=== PATIENT | male | born 1950 | race Caucasian/White ===

== ENCOUNTER 2017-08-13 15:14 | Emergency (ER) | payer MEDICARE, OTHER ==
[~2017-08-13] VITALS: Ht 182.9 cm; Wt 100.0 kg
[2017-08-13 15:18] VITALS: BP 134/68; PULSE 91; RESP 14; TEMP 98.1; O2SAT 97
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
[2017-08-19] MEDS ORDERED: ASPI81TA23 PO (14:42)
== END 2017-08-13 16:30 | disposition home or self-care (01) ==
LOC: NEPE 15:14
DX: H26.9 Unspecified cataract (principal); I10 Essential (primary) hypertension; F17.200 Nicotine dependence, unspecified, uncomplicated; Z59.0 Homelessness
CPT/HCPCS: 99281

== ENCOUNTER 2017-09-17 15:11 | Emergency (ER) | payer MEDICARE, OTHER ==
[~2017-09-17] VITALS: Ht 182.9 cm; Wt 100.0 kg
[~2017-09-17 15:11] MED LIST: ASPI81TA23 PO; BRIN1SUS2 LEFT EYE; BRIN1SUS2 RIGHT EYE
[2017-09-17 15:16] VITALS: BP 218/120; PULSE 80; RESP 18; TEMP 98.4; O2SAT 96
[2017-09-17 15:38] VITALS: BP 185/104; PULSE 84; RESP 24; O2SAT 96
[2017-09-17] MEDS ORDERED: SODIUM CHLORIDE 0.9% FLUSH 10 ML FLUSH IV FLUSH PRN (15:45)
--- NOTE | 2017-09-17 16:01 | PD ---
HPI Chief Complaint: Altered Mental Status Time Seen by Provider: 15:23 Travel History International Travel<30 days: No Contact w/Intl Traveler<30days: No Traveled to known affect area: No History of Present Illness HPI Patient is a 66-year-old male presents emergency Department with his friend for evaluation of generalized weakness for the past 2 months and blindness for the past 6 months. He has been homeless and recently started going to the [employer] and apparently met this friend who is with him today, she states that he was scheduled to have a cataract removed by Dr. Berg and recommended admission to a rehabilitation facility. They went to the rehabilitation facility today and were counseled on the almanza of admission and that he did not qualify because she's not had 3 nights of inpatient stay. There apparently were referred to the emergency department for admission for 3 nights so that he can be discharged to a rehabilitation facility or [facility]. The patient himself has no complaints at this time, states been blind for 6 months, has no complaints of chest pain abdominal pain nausea vomiting diarrhea constipation. He is somewhat eccentric and behavior but is alert and awake and oriented. PFSH Past Medical History Asthma: No Blood Disorders: No Heart Rhythm Problems: No Cancer: No Cardiovascular Problems: No High Cholesterol: No Chest Pain: No Congestive Heart Failure: No COPD: No Diabetes: No Diminished Hearing: No Endocrine: No Genitourinary: No Hypertension: Yes Immune Disorder: No Musculoskeletal: No Neurologic: No Psychiatric: No Reproductive: No Respiratory: No Immunizations Current: Yes Sleep Apnea: No Thyroid Disease: No Past Surgical History Tonsillectomy: Yes Social History Alcohol Use: Yes (daily) Tobacco Use: Yes (1ppd) Substance Use: No Allergies-Medications (Allergen,Severity, Reaction): Coded Allergies: No Known Allergies (Verified Allergy, Unknown, 09/16/17) Reported Meds & Prescriptions Reported Meds & Active Scripts Active Reported Simbrinza Opth Drops (Brinzolamide-Brimonidine Opth Drops) 1-0.2% Susp 1 Drop RIGHT EYE DAILY Simbrinza Opth Drops (Brinzolamide-Brimonidine Opth Drops) 1-0.2% Susp 1 Drop LEFT EYE BID Aspirin EC (Aspirin) 81 Mg Tabdr 81 Mg PO DAILY Review of Systems Except as stated in HPI: all other systems reviewed are Neg Physical Exam Narrative GENERAL: Well-developed well-nourished no obvious distress, disheveled SKIN: Focused skin assessment warm/dry. HEAD: Atraumatic. Normocephalic. EYES: Pupils equal and round. No scleral icterus. No injection or drainage. ENT: No nasal bleeding or discharge. Mucous membranes pink and moist. NECK: Trachea midline. No JVD. CARDIOVASCULAR: Regular rate and rhythm. No murmur appreciated. RESPIRATORY: No accessory muscle use. Clear to auscultation. Breath sounds equal bilaterally. GASTROINTESTINAL: Abdomen soft, non-tender, nondistended. Hepatic and splenic margins not palpable. MUSCULOSKELETAL: No obvious deformities. No clubbing. No cyanosis. No edema. NEUROLOGICAL: Awake and alert. Patient nearly blind but does have the ability to identify lites. Otherwise cranial nerves V, VII through XII are grossly intact and nonfocal, 5 out of 5 strength in all 4 extremities. PSYCHIATRIC: Appropriate mood and affect; insight and judgment normal. Data Data Last Documented VS Vital Signs Date Time Temp Pulse Resp B/P (MAP) Pulse Ox O2 Delivery O2 Flow Rate FiO2 09/17/17 19:06 09/17/17 16:21 98 Room Air 09/17/17 15:38 84 24 09/17/17 15:16 98.4 Orders Orders Electrocardiogram (09/17/17 15:40) Complete Blood Count With Diff (09/17/17 15:40) Comprehensive Metabolic Panel (09/17/17 15:40) Urinalysis - C+S If Indicated (09/17/17 15:40) Chest, Single Ap (09/17/17 15:40) Ct Brain W/O Iv Contrast(Rout) (09/17/17 15:40) Blood Glucose (09/17/17 15:40) Ecg Monitoring (09/17/17 15:40) Iv Access Insert/Monitor (09/17/17 15:40) Oximetry (09/17/17 15:40) Sodium Chloride 0.9% Flush (Ns Flush) (09/17/17 15:45) Alcohol (Ethanol) (09/17/17 15:40) Ed Discharge Order (09/17/17 18:33) Drug Screen, Random Urine (09/17/17 18:33) Labs Laboratory Tests Test 09/17/17 15:50 09/17/17 17:05 White Blood Count 7.0 TH/MM3 Red Blood Count 4.06 MIL/MM3 Hemoglobin 13.3 GM/DL Hematocrit 39.1 % Mean Corpuscular Volume 96.3 FL Mean Corpuscular Hemoglobin 32.6 PG Mean Corpuscular Hemoglobin Concent 33.9 % Red Cell Distribution Width 14.1 % Platelet Count 220 TH/MM3 Mean Platelet Volume 7.6 FL Neutrophils (%) (Auto) 70.4 % Lymphocytes (%) (Auto) 17.2 % Monocytes (%) (Auto) 10.0 % Eosinophils (%) (Auto) 1.5 % Basophils (%) (Auto) 0.9 % Neutrophils # (Auto) 4.9 TH/MM3 Lymphocytes # (Auto) 1.2 TH/MM3 Monocytes # (Auto) 0.7 TH/MM3 Eosinophils # (Auto) 0.1 TH/MM3 Basophils # (Auto) 0.1 TH/MM3 CBC Comment DIFF FINAL Differential Comment Total Protein 7.3 GM/DL Alkaline Phosphatase 96 U/L Total Bilirubin 0.3 MG/DL Anion Gap 7 MEQ/L Estimat Glomerular Filtration Rate 117 ML/MIN Ethyl Alcohol Level LESS THAN 3 MG/DL Urine Color YELLOW Urine Turbidity CLEAR Urine pH 7.0 Urine Specific Mcmillan 1.021 Urine Protein TRACE mg/dL Urine Glucose (UA) NEG mg/dL Urine Ketones NEG mg/dL Urine Occult Blood NEG Urine Nitrite NEG Urine Bilirubin NEG Urine Urobilinogen 2.0 MG/DL Urine Leukocyte Esterase TRACE Urine RBC 1 /hpf Urine WBC 1 /hpf Urine Mucus FEW /lpf Microscopic Urinalysis Comment CATH-CULT NOT IND Urine Opiates Screen NEG Urine Barbiturates Screen NEG Urine Amphetamines Screen NEG Urine Benzodiazepines Screen NEG Urine Cocaine Screen NEG Urine Cannabinoids Screen NEG [facility] Medical Decision Making Medical Screen Exam Complete: Yes Emergency Medical Condition: Yes Differential Diagnosis Poor social circumstance, cataracts, altered mental status per his friend. Narrative Course Patient had complete workup in the emergency department including a CT head basic labs which do not show any significant abnormality. Case management spent some time with the patient regarding his presentation, showcase trimmer said to me that the patient actually thought his friend was crazy. She certainly does have some psychotic features to her presentation. She is not greatly disabled and is no indication to keep her against her will. Unfortunately there is no indication to admit this patient for further workup or treatment. He will be discharged to the street to care for himself. Discussed to keep his appointments as scheduled. He is stable for discharge. Diagnosis Primary Impression: Generalized weakness Additional Impression: Cataract Referrals: [facility] Disposition: 01 DISCHARGE HOME Condition: Stable Primo Stratton MD Sep 17, 2017 16:01
[2017-09-17 16:07] LABS: AUTOMATED NEUTROPHIL # 4.9 TH/MM3 (1.8-7.7); BASOPHIL # 0.1 TH/MM3 (0-0.2); BASOPHIL % 0.9 % (0.0-2.0); EOSINOPHIL # 0.1 TH/MM3 (0-0.4); EOSINOPHIL % 1.5 % (0.0-4.0); HEMATOCRIT 39.1 % (39.0-51.0); HEMOGLOBIN 13.3 GM/DL (13.0-17.0); LYMPH % 17.2 % (9.0-44.0); LYMPHOCYTE # 1.2 TH/MM3 (1.0-4.8); MEAN CELL VOLUME 96.3 FL (80.0-100.0); MEAN CORPUSCULAR HEMOGLOBIN 32.6 PG (27.0-34.0); MEAN CORPUSCULAR HGB CONC 33.9 % (32.0-36.0); MEAN PLATELET VOLUME 7.6 FL (7.0-11.0); MONOCYTE # 0.7 TH/MM3 (0-0.9); NEUT % 70.4 % (16.0-70.0); PLATELET COUNT 220 TH/MM3 (150-450); RED BLOOD COUNT 4.06 MIL/MM3 (4.50-5.90); RED CELL DISTRIBUTION WIDTH 14.1 % (11.6-17.2)
--- NOTE | 2017-09-17 16:15 | RADRPT ---
EXAM DATE/TIME: 09/17/2017 15:59 [facility] COMPARISON: CHEST PA & LAT, March 11, 2017, 14:21. INDICATIONS : Syncope, loss of eyesight. MEDICAL HISTORY : Hypertension. SURGICAL HISTORY : None. ENCOUNTER: Initial ACUITY: 1 year PAIN SCORE: 0/10 LOCATION: Bilateral chest FINDINGS: A single view of the chest demonstrates the lungs to be symmetrically aerated without evidence of mas s, infiltrate or effusion. The cardiomediastinal contours are unremarkable. Osseous structures are intact but hypertropic spurring of the lower thoracic spine primarily right sided.. CONCLUSION: No acute disease. No significant change has occurred. Yvon Gomes MD on September 17, 2017 at 16:12 Board Certified Radiologist. This report was verified electronically.
[2017-09-17 16:21] VITALS: O2SAT 98
--- NOTE | 2017-09-17 16:28 | RADRPT ---
EXAM DATE/TIME: 09/17/2017 16:09 [facility] COMPARISON: CT BRAIN W/O CONTRAST, March 11, 2017, 16:41. INDICATIONS : Altered mental state with confusion. RADIATION DOSE: 44.56 CTDIvol (mGy) MEDICAL HISTORY : Hypertension. SURGICAL HISTORY : None. ENCOUNTER: Initial ACUITY: 2 months PAIN SCALE: 8/10 LOCATION: Bilateral cranial TECHNIQUE: Multiple contiguous axial images were obtained of the head. Using automated exposure control and adj ustment of the mA and/or kV according to patient size, radiation dose was kept as low as reasonably a chievable to obtain optimal diagnostic quality images. DICOM format image data is available electro nically for review and comparison. FINDINGS: CEREBRUM: The ventricles are normal for age. No evidence of midline shift, mass lesion, hemorrhage or acute in farction. No extra-axial fluid collections are seen. Stable microvascular ischemic demyelinization o f deep white matter and minimally cortical. POSTERIOR FOSSA: The cerebellum and brainstem are intact. The 4th ventricle is midline. The cerebellopontine angle i s unremarkable. EXTRACRANIAL: The visualized portion of the orbits is intact. New minimal mucoperiosteal thickening in the maxillar y sinuses. SKULL: The calvaria is intact. No evidence of skull fracture. CONCLUSION: Intracranially negative for acute abnormality unchanged with mild microvascular ischemic demyelinizat ion. There is new minimal mucoperiosteal thickening in the maxillary sinuses. Yvon Gomes MD on September 17, 2017 at 16:23 Board Certified Radiologist. This report was verified electronically.
[2017-09-17 16:30] LABS: ALBUMIN 3.4 GM/DL (3.4-5.0); ALT (GPT) 11 U/L (12-78); AST (GOT) 14 U/L (15-37); BICARBONATE 25.7 MEQ/L (21.0-32.0); BLOOD UREA NITROGEN 14 MG/DL (7-18); CALCIUM 8.2 MG/DL (8.5-10.1); CHLORIDE 99 MEQ/L (98-107); CREATININE 0.68 MG/DL (0.60-1.30); GLOMERULAR FILTRATION RATE 117 ML/MIN (>89); GLUCOSE,RANDOM 109 MG/DL (74-106); SODIUM (NA) 132 MEQ/L (136-145)
[2017-09-17 16:33] LABS: ALKALINE PHOSPHATASE 96 U/L (45-117); TOTAL BILIRUBIN ADULT 0.3 MG/DL (0.2-1.0); TOTAL PROTEIN 7.3 GM/DL (6.4-8.2)
[2017-09-17 17:31] LABS: BILIRUBIN, URINE NEG (NEG); BLOOD, URINE NEG (NEG); GLUCOSE,URINE NEG (NEG); KETONE, URINE NEG (NEG); MUCUS URINE FEW /lpf (OCC); NITRITE,URINE NEG (NEG); URINE COLOR YELLOW (YELLW/STRAW); URINE LEUKOCYTE ESTERASE TRACE (NEG)
--- NOTE | 2017-09-18 13:03 | EKG ---
Date Performed: 09/17/2017 Time Performed: 16:36:21 PTAGE: 66 years EKG: Sinus rhythm NORMAL ECG PREVIOUS TRACING : 03/11/2017 12.30 Compared to previous tracing, sinus rate has slowed. DOCTOR: Yunier Castorena Interpretating Date/Time 09/18/2017 13:30:28
== END 2017-09-17 19:07 | disposition home or self-care (01) ==
LOC: NEPE 15:11
DX: R53.1 Weakness (principal); H26.9 Unspecified cataract; I10 Essential (primary) hypertension; F17.210 Nicotine dependence, cigarettes, uncomplicated; Z59.0 Homelessness; Z79.82 Long term (current) use of aspirin; Z79.899 Other long term (current) drug therapy
CPT/HCPCS: 70450; 71045; 80053; 80307; 81001; 85025; 93005; 99285

== ENCOUNTER 2017-11-10 09:27 | Emergency (ER) | payer MEDICARE, BC ==
[~2017-11-10 09:27] MED LIST changes: -CHLORHEXIDINE GLUCONATE 2 % 1 PACK (2 CLOTHS) TOPICAL PRN; -CYCLOPENTOLATE HCL 1% OPHT SOLN 2 ML BTL RIGHT EYE SCH; -EPINEPHrine HCL PF/SF (1:1000) 1 MG/ML AMP I-OCULAR ONE; -EPINEPHrine-Lidocaine/BSS (PF/SF) 4-120 mg/16 mL OPTH SYR RIGHT EYE ONE; -LACTATED RINGER'S 1000 ML IV PRN; -MANNITOL 12.5 GM/50 ML VIAL IV PRN; -METOPROLOL TARTRATE 25 MG TAB PO PRN; -PHENYLEPHRINE HCL 10% OPTH SOLN 5 ML BTL RIGHT EYE SCH; -POVIDONE IODINE 5% (ANTISEPSIS KIT) 4 APPLICATIONS EACH NARE PRN; -SODIUM CHLOR 0.9% 250 ML INJ 250 ML ONE; -SODIUM CHLORID 0.9% 500 ML IV PRN; -TETRACAINE 0.5% OPTH SOLN 4 ML BTL RIGHT EYE SCH; -TOBRAMYCIN/DEXAMETHASONE OPTH OINT 3.5 GM TUBE ONE; -TROPICAMIDE 1% OPHT SOLN 15 ML BTL RIGHT EYE SCH; -VISCOAT OPHT IRRIG SOLN 0.75 ML SYRINGE ONE
[2017-11-10 09:36] VITALS: BP 188/97; PULSE 92; RESP 16; TEMP 98.2; O2SAT 99
--- NOTE | 2017-11-10 09:47 | PD ---
HPI Chief Complaint: Foot and ankle swelling Time Seen by Provider: 09:29 Travel History International Travel<30 days: No Contact w/Intl Traveler<30days: No Traveled to known affect area: No History of Present Illness HPI This patient Was scheduled for cataract surgery on the right eye this morning. However, his surgery was canceled because he was not remaining n.p.o. as instructed. Also operating room staff noticed that his left ankle was swollen. He has some pain in that area. He is walking on it. He reports that he slipped and twisted it 3 days ago. He developed bruising in the foot and 2 of the toes. Patient according to his report drinks alcohol heavily and recently has been homeless but now is sharing a room with 2 other men. He reports that he does have a primary physician. Symptom severity is moderate. No alleviating factors. No exacerbating factors PFSH Past Medical History Asthma: No Blood Disorders: No Heart Rhythm Problems: No Cancer: No Cardiovascular Problems: No High Cholesterol: No Chest Pain: No Congestive Heart Failure: No COPD: No Diabetes: No Diminished Hearing: No Endocrine: No Genitourinary: No Hepatitis: No Hiatal Hernia: No Hypertension: Yes Immune Disorder: No Musculoskeletal: No Neurologic: No Psychiatric: No Reproductive: No Respiratory: No Immunizations Current: Yes Sleep Apnea: No Thyroid Disease: No Past Surgical History Tonsillectomy: Yes Social History Alcohol Use: Yes (daily) Tobacco Use: Yes (1ppd) Substance Use: No Allergies-Medications (Allergen,Severity, Reaction): Coded Allergies: No Known Allergies (Verified Allergy, Unknown, 11/10/17) Reported Meds & Prescriptions Reported Meds & Active Scripts Active Reported Simbrinza Opth Drops (Brinzolamide-Brimonidine Opth Drops) 1-0.2% Susp 1 Drop RIGHT EYE DAILY Simbrinza Opth Drops (Brinzolamide-Brimonidine Opth Drops) 1-0.2% Susp 1 Drop LEFT EYE BID Aspirin EC (Aspirin) 81 Mg Tabdr 81 Mg PO DAILY Review of Systems General / Constitutional: No: Fever Eyes: No: Visual changes HENT: No: Headaches Cardiovascular: No: Chest Pain or Discomfort Respiratory: No: Shortness of Breath Gastrointestinal: No: Abdominal Pain Genitourinary: No: Dysuria Musculoskeletal: Positive: Arthralgias, Edema, Pain Skin: No Rash Neurologic: No: Weakness Psychiatric: Positive: Substance Abuse, No: Depression Endocrine: No: Polydipsia Hematologic/Lymphatic: No: Easy Bruising Physical Exam Narrative GENERAL: Well-nourished, well-developed patient with left ankle swelling and pain . SKIN: Focused skin assessment reveals no rash and nodules. Skin is Warm and dry. HEAD: Atraumatic. Normocephalic. EYES: Pupils equal and round. No scleral icterus. No injection or drainage. ENT: No nasal bleeding or discharge. Mucous membranes pink and moist. NECK: Trachea midline. No JVD. CARDIOVASCULAR: Regular rate and rhythm. No murmur appreciated. RESPIRATORY: No accessory muscle use. Clear to auscultation. Breath sounds equal bilaterally. GASTROINTESTINAL: Abdomen soft, non-tender, nondistended. Hepatic and splenic margins not palpable. MUSCULOSKELETAL: He has swelling to the ankle with tenderness at the lateral malleolus. There is some forefoot tenderness as well. He is bruising of toes 3 and 4 on the left foot but no tenderness of those toes. No clubbing. No cyanosis. No redness swelling or pain in the area of the calf and thigh. Pedal pulses are palpable NEUROLOGICAL: Awake and alert. No obvious cranial nerve deficits. Motor grossly within normal limits. Normal speech. PSYCHIATRIC: Appropriate mood and affect; insight and judgment seems reduced . Data Data Last Documented VS Vital Signs Date Time Temp Pulse Resp B/P (MAP) Pulse Ox O2 Delivery O2 Flow Rate FiO2 11/10/17 09:36 98.2 92 16 188/97 (127) 99 Orders Orders Iv Access Insert/Monitor (11/10/17 09:40) Complete Blood Count With Diff (11/10/17 09:40) Basic Metabolic Panel (Bmp) (11/10/17 09:40) Foot, Complete ([id number]) (11/10/17 ) Alcohol (Ethanol) (11/10/17 09:40) Ankle, Complete ([id number]) (11/10/17 ) Splint Or Brace Apply/Monitor (11/10/17 10:52) Labs Laboratory Tests Test 11/10/17 09:55 White Blood Count 5.2 TH/MM3 Red Blood Count 4.33 MIL/MM3 Hemoglobin 13.8 GM/DL Hematocrit 40.8 % Mean Corpuscular Volume 94.3 FL Mean Corpuscular Hemoglobin 31.9 PG Mean Corpuscular Hemoglobin Concent 33.8 % Red Cell Distribution Width 14.5 % Platelet Count 222 TH/MM3 Mean Platelet Volume 7.6 FL Neutrophils (%) (Auto) 66.9 % Lymphocytes (%) (Auto) 18.0 % Monocytes (%) (Auto) 10.2 % Eosinophils (%) (Auto) 1.0 % Basophils (%) (Auto) 3.9 % Neutrophils # (Auto) 3.5 TH/MM3 Lymphocytes # (Auto) 0.9 TH/MM3 Monocytes # (Auto) 0.5 TH/MM3 Eosinophils # (Auto) 0.1 TH/MM3 Basophils # (Auto) 0.2 TH/MM3 CBC Comment DIFF FINAL Differential Comment Blood Urea Nitrogen 10 MG/DL Creatinine 0.61 MG/DL Random Glucose 96 MG/DL Calcium Level 8.2 MG/DL Sodium Level 136 MEQ/L Potassium Level 4.5 MEQ/L Chloride Level 100 MEQ/L Carbon Dioxide Level 29.9 MEQ/L Anion Gap 6 MEQ/L Estimat Glomerular Filtration Rate 133 ML/MIN Ethyl Alcohol Level LESS THAN 3 MG/DL MDM Medical Decision Making Medical Screen Exam Complete: Yes Emergency Medical Condition: Yes Medical Record Reviewed: Yes Differential Diagnosis Ankle fracture, foot fracture, ankle sprain, alcohol intoxication Narrative Course I have reviewed the patient's electronic medical record. Reviewed his last visit here. The last ER physician described him as eccentric His behavior is odd IV placed I am ordering some lab studies and alcohol level I have ordered x-rays of his foot and ankle CBC and metabolic profiles are normal, alcohol negative X-rays of his foot and ankle are reviewed. He has a fracture of the lateral malleolus with mild displacement Is a 3-day-old fracture. Is neurovascularly intact. I placed a Vidal splint recommended orthopedic follow-up He has both walker and wheelchair available Should avoid weightbearing and elevate the leg. I do not feel he could safely use crutches given his poor vision. Also, he has had a bandage on the right second toe for a month after he got it cut. The cut is healed and there is a macerated look to it given the length of the bandage which has gotten wet. However there is no sign of infection. I think it will gradually heal over time. Diagnosis Primary Impression: Closed left ankle fracture Qualified Codes: S82.892A - Other fracture of left lower leg, initial encounter for closed fracture Additional Impression: Alcohol abuse Additional Instructions: Wear splint Elevate left leg No weightbearing on left leg Use walker or wheelchair as needed Follow-up with orthopedist Limit alcohol use Med/Other Pt SpecificInfo: Other Disposition: 01 DISCHARGE HOME Condition: Stable Black Lr MD Nov 10, 2017 09:47
[2017-11-10 10:08] LABS: AUTOMATED NEUTROPHIL # 3.5 TH/MM3 (1.8-7.7); BASOPHIL # 0.2 TH/MM3 (0-0.2); BASOPHIL % 3.9 % (0.0-2.0); EOSINOPHIL # 0.1 TH/MM3 (0-0.4); HEMATOCRIT 40.8 % (39.0-51.0); HEMOGLOBIN 13.8 GM/DL (13.0-17.0); LYMPHOCYTE # 0.9 TH/MM3 (1.0-4.8); MEAN CELL VOLUME 94.3 FL (80.0-100.0); MEAN CORPUSCULAR HEMOGLOBIN 31.9 PG (27.0-34.0); MEAN CORPUSCULAR HGB CONC 33.8 % (32.0-36.0); MEAN PLATELET VOLUME 7.6 FL (7.0-11.0); MONO % 10.2 % (0.0-8.0); MONOCYTE # 0.5 TH/MM3 (0-0.9); NEUT % 66.9 % (16.0-70.0); PLATELET COUNT 222 TH/MM3 (150-450); RED BLOOD COUNT 4.33 MIL/MM3 (4.50-5.90); RED CELL DISTRIBUTION WIDTH 14.5 % (11.6-17.2); WHITE BLOOD COUNT 5.2 TH/MM3 (4.0-11.0)
[2017-11-10 10:18] LABS: CHLORIDE 100 MEQ/L (98-107); SODIUM (NA) 136 MEQ/L (136-145)
[2017-11-10 10:22] LABS: BICARBONATE 29.9 MEQ/L (21.0-32.0); CALCIUM 8.2 MG/DL (8.5-10.1); GLUCOSE,RANDOM 96 MG/DL (74-106)
[2017-11-10 10:23] LABS: BLOOD UREA NITROGEN 10 MG/DL (7-18)
[2017-11-10 10:26] LABS: CREATININE 0.61 MG/DL (0.60-1.30); GLOMERULAR FILTRATION RATE 133 ML/MIN (>89)
--- NOTE | 2017-11-10 10:45 | RADRPT ---
EXAM DATE/TIME: 11/10/2017 09:52 [facility] COMPARISON: No previous studies available for comparison. INDICATIONS : Tripped and fell last week, left lateral and dorsal foot pain. MEDICAL HISTORY : Hypertension. SURGICAL HISTORY : None. ENCOUNTER: Initial ACUITY: 1 week PAIN SCORE: 8/10 LOCATION: Left lateral and dorsal foot FINDINGS: No acute fracture within the foot. There is a fracture of the lateral malleolus which is mildly displ aced. Mild pes planus. Prominent bone spurs posterior calcaneus. CONCLUSION: 1. Lateral malleolus fracture. Pes planus. No acute fracture identified within the left foot. Ryland Mas MD on November 10, 2017 at 10:41 Board Certified Radiologist. This report was verified electronically.
--- NOTE | 2017-11-10 10:47 | RADRPT ---
EXAM DATE/TIME: 11/10/2017 09:52 [facility] COMPARISON: No previous studies available for comparison. INDICATIONS : Tripped and fell last week, left lateral ankle pain and swelling. MEDICAL HISTORY : Hypertension. SURGICAL HISTORY : None. ENCOUNTER: Initial ACUITY: 1 week PAIN SCORE: 8/10 LOCATION: Left lateral ankle FINDINGS: There is a mildly displaced fracture of the lateral malleolus with soft tissue swelling. No dislocati on. No other fractures are seen. CONCLUSION: 1. Mildly displaced lateral malleolar fracture. Ryland Mas MD on November 10, 2017 at 10:44 Board Certified Radiologist. This report was verified electronically.
== END 2017-11-10 11:36 | disposition home or self-care (01) ==
LOC: PHED 09:27
DX: S82.62XA Displaced fracture of lateral malleolus of left fibula, initial encounter for closed fracture (principal); F10.10 Alcohol abuse, uncomplicated; F17.200 Nicotine dependence, unspecified, uncomplicated; W01.0XXA Fall on same level from slipping, tripping and stumbling without subsequent striking against object, initial encounter; Y90.0 Blood alcohol level of less than 20 mg/100 ml; Z79.82 Long term (current) use of aspirin
CPT/HCPCS: 29515; 73610; 73630; 80048; 80307; 85025

== ENCOUNTER → 2017-11-10 | Day surgery (SDC) | payer MEDICARE, BC ==
[~2017-11-10] MED LIST changes: +CHLORHEXIDINE GLUCONATE 2 % 1 PACK (2 CLOTHS) TOPICAL PRN; +CYCLOPENTOLATE HCL 1% OPHT SOLN 2 ML BTL RIGHT EYE SCH; +EPINEPHrine HCL PF/SF (1:1000) 1 MG/ML AMP I-OCULAR ONE; +EPINEPHrine-Lidocaine/BSS (PF/SF) 4-120 mg/16 mL OPTH SYR RIGHT EYE ONE; +LACTATED RINGER'S 1000 ML IV PRN; +MANNITOL 12.5 GM/50 ML VIAL IV PRN; +METOPROLOL TARTRATE 25 MG TAB PO PRN; +PHENYLEPHRINE HCL 10% OPTH SOLN 5 ML BTL RIGHT EYE SCH; +POVIDONE IODINE 5% (ANTISEPSIS KIT) 4 APPLICATIONS EACH NARE PRN; +SODIUM CHLOR 0.9% 250 ML INJ 250 ML ONE; +SODIUM CHLORID 0.9% 500 ML IV PRN; +TETRACAINE 0.5% OPTH SOLN 4 ML BTL RIGHT EYE SCH; +TOBRAMYCIN/DEXAMETHASONE OPTH OINT 3.5 GM TUBE ONE; +TROPICAMIDE 1% OPHT SOLN 15 ML BTL RIGHT EYE SCH; +VISCOAT OPHT IRRIG SOLN 0.75 ML SYRINGE ONE
[2017-11-10 08:30] VITALS: BP 178/93; PULSE 93; RESP 20; TEMP 98.2; O2SAT 92
== END | disposition home or self-care (01) ==
LOC: PHSDC 08:05
PROVIDERS: ATTEND Ophthalmology
DX: H25.21 Age-related cataract, morgagnian type, right eye (principal); Z53.09 Procedure and treatment not carried out because of other contraindication; M79.89 Other specified soft tissue disorders
CPT/HCPCS: 82948; G0463; J2150; J7040; J7050; 99211; J0171

== ENCOUNTER 2018-02-12 21:05 | Emergency (ER) | payer MEDICARE, BC, OTHER ==
[~2018-02-12] VITALS: Ht 182.9 cm; Wt 94.0 kg
[2018-02-12 21:09] VITALS: BP 164/79; PULSE 89; RESP 20; TEMP 98.4; O2SAT 98
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
[2018-02-12] MEDS ORDERED: diphenhydrAMINE HCL 50 MG/ML VIAL IV PUSH ONE (21:30)
[2018-02-12] MEDS ORDERED: LORazepam 2 MG/ML VIAL IV PUSH ONE (21:30)
[2018-02-12] MEDS ORDERED: SODIUM CHLORIDE 0.9% FLUSH 10 ML FLUSH IV FLUSH PRN (21:30)
[2018-02-12] MEDS ORDERED: SODIUM CHLOR 0.9% 1000 ML INJ 1,000 ML IV ONE (21:30)
[2018-02-12] MEDS ORDERED: HALOPERIDOL LACTATE 5 MG/ML AMP IM ONE (21:30)
[2018-02-13 00:58] LABS: AUTOMATED NEUTROPHIL # 3.1 TH/MM3 (1.8-7.7); BASOPHIL % 0.7 % (0.0-2.0); EOSINOPHIL # 0.1 TH/MM3 (0-0.4); EOSINOPHIL % 1.1 % (0.0-4.0); HEMATOCRIT 37.4 % (39.0-51.0); HEMOGLOBIN 12.7 GM/DL (13.0-17.0); LYMPH % 31.4 % (9.0-44.0); LYMPHOCYTE # 1.7 TH/MM3 (1.0-4.8); MEAN CORPUSCULAR HEMOGLOBIN 31.9 PG (27.0-34.0); MEAN CORPUSCULAR HGB CONC 33.9 % (32.0-36.0); MEAN PLATELET VOLUME 8.6 FL (7.0-11.0); MONO % 8.8 % (0.0-8.0); MONOCYTE # 0.5 TH/MM3 (0-0.9); PLATELET COUNT 216 TH/MM3 (150-450); RED BLOOD COUNT 3.98 MIL/MM3 (4.50-5.90); RED CELL DISTRIBUTION WIDTH 13.3 % (11.6-17.2); WHITE BLOOD COUNT 5.3 TH/MM3 (4.0-11.0)
[2018-02-13 01:23] LABS: CREATININE 0.61 MG/DL (0.60-1.30)
--- NOTE | 2018-02-13 04:44 | RADRPT ---
EXAM DATE: 02/13/2018 4:06 AM EDT AGE/SEX: 67 years / Male INDICATIONS: Fall. Altered mental status. CLINICAL DATA: This is the patient's initial encounter. Patient reports that signs and symptoms have been present for 1 day and indicates a pain score of Nonresponsive. MEDICAL/SURGICAL HISTORY: . Alcohol abuse . RADIATION DOSE: 21.96 CTDI (mGy) COMPARISON: No prior exams available for comparison. TECHNIQUE: Contiguous images in the axial and coronal planes were obtained using helical multirow de tector technique. Using automated exposure control and adjustment of the mA and/or kV according to p atient size, radiation dose was kept as low as reasonably achievable to obtain optimal diagnostic [place] lity images. FINDINGS: Orbits: The orbital and infraorbital osseous structures are intact. The retroconal structures have a normal configuration. No radiopaque foreign bodies are seen. Nasal Bone: Bilateral nasal fractures. Zygomatic Arches: Symmetric without evidence of fracture. Sinuses: The maxillary, ethmoid, and frontal sinuses are intact. Mucoperiosteal thickening of the le ft maxillary sinus. Minimal mucosal thickening of the right maxillary sinus. Nasal Cavity: The nasal septum is intact and midline. The lacrimal ducts are intact. Soft Tissues: No radiopaque foreign bodies seen. No soft-tissue swelling is seen. Intracranial: No intracranial air seen. Cribriform Plate: Grossly intact. CONCLUSION: 1. Bilateral nasal fractures. 2. Scattered sinus disease. Electronically signed by: Ld Kirk MD 02/13/2018 4:43 AM EDT
--- NOTE | 2018-02-13 04:47 | RADRPT ---
EXAM DATE: 02/13/2018 3:59 AM EDT AGE/SEX: 67 years / Male INDICATIONS: Fall. Altered mental status. CLINICAL DATA: This is the patient's initial encounter. Patient reports that signs and symptoms have been present for 1 day and indicates a pain score of Nonresponsive. MEDICAL/SURGICAL HISTORY: Non-responsive. Alcohol abuse . RADIATION DOSE: 56.35 CTDI (mGy) COMPARISON: [facility] [place], CT BRAIN W/O CONTRAST, 09/17/2017. . TECHNIQUE: CT of the head without contrast. Using automated exposure control and adjustment of the mA and/or kV according to patient size, radiation dose was kept as low as reasonably achievable to ob tain optimal diagnostic quality images. FINDINGS: Cerebrum: There is low-density throughout the white matter. Old left basal ganglia lacunar infarct T he ventricles are normal for age. No evidence of midline shift, mass lesion, hemorrhage or acute inf arction. No extraaxial fluid collections are seen. Posterior Fossa: The cerebellum and brainstem are intact. The 4th ventricle is midline. The cerebe llopontine angle is unremarkable. Extracranial: The visualized portion of the orbits is intact. Skull: The calvaria is intact. No evidence of skull fracture. CONCLUSION: 1. Chronic ischemic small vessel vasculopathy. 2. Old left basal ganglia lacunar infarct Electronically signed by: Ld Kirk MD 02/13/2018 4:46 AM EDT
--- NOTE | 2018-02-13 04:47 | RADRPT ---
EXAM DATE: 02/13/2018 4:05 AM EDT AGE/SEX: 67 years / Male INDICATIONS: Fall. Altered mental status. CLINICAL DATA: This is the patient's initial encounter. Patient reports that signs and symptoms have been present for 1 day and indicates a pain score of Nonresponsive. MEDICAL/SURGICAL HISTORY: . Alcohol abuse . RADIATION DOSE: 20.29 CTDI (mGy) COMPARISON: No prior exams available for comparison. TECHNIQUE: Contiguous axial images were obtained using helical multirow detector technique. The vol umetric data was post-processed with multiplanar reconstruction in oblique axial, sagittal, and coron al planes. Using automated exposure control and adjustment of the mA and/or kV according to patient s ize, radiation dose was kept as low as reasonably achievable to obtain optimal diagnostic quality leslie ges. FINDINGS: Vertebrae: Normal vertebral body height. Alignment: Normal. No subluxation. C2-3: The bony spinal canal is normal in size. No evidence of disc bulge or herniation. The neural foramina are bilaterally patent. C3-4: The bony spinal canal is normal in size. No evidence of disc bulge or herniation. The neural foramina are bilaterally patent. C4-5: The bony spinal canal is normal in size. No evidence of disc bulge or herniation. The neural foramina are bilaterally patent. C5-6: Posterior disc osteophyte complex and bilateral neural foraminal narrowing. No canal stenosis. C6-7: The bony spinal canal is normal in size. No evidence of disc bulge or herniation. The neural foramina are bilaterally patent. C7-T1: The bony spinal canal is normal in size. No evidence of disc bulge or herniation. The neura l foramina are bilaterally patent. CONCLUSION: 1. No fracture or subluxation Electronically signed by: Ld Kirk MD 02/13/2018 4:45 AM EDT
[2018-02-13] MEDS ORDERED: PENI500T PO (05:03)
[2018-02-13] MEDS ORDERED: OCEA0.653 EACH NARE (05:03)
== END 2018-02-13 06:05 | disposition home or self-care (01) ==
LOC: NEPE 21:05
DX: S02.2XXA Fracture of nasal bones, initial encounter for closed fracture (principal); F10.129 Alcohol abuse with intoxication, unspecified; Y09 Assault by unspecified means; Y90.6 Blood alcohol level of 120-199 mg/100 ml; I10 Essential (primary) hypertension; F17.210 Nicotine dependence, cigarettes, uncomplicated; Z79.899 Other long term (current) drug therapy
CPT/HCPCS: 70450; 70486; 72125; 80048; 85025; 96361; 96372; 96374; 96375; 99284; J1200; J1630; J2060; J7030; 80307

== ENCOUNTER 2018-02-13 10:41 | Emergency (ER) | payer MEDICARE, BC, OTHER ==
[~2018-02-13] VITALS: Ht 180.3 cm; Wt 90.9 kg
[~2018-02-13 10:41] MED LIST changes: +OCEA0.653 EACH NARE; +PENI500T PO
[2018-02-13 10:53] VITALS: BP 130/76; PULSE 94; RESP 18; TEMP 98.5; O2SAT 96
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
[2018-02-13 15:16] LABS: AUTOMATED NEUTROPHIL # 6.4 TH/MM3 (1.8-7.7); BASOPHIL # 0.1 TH/MM3 (0-0.2); EOSINOPHIL % 0.5 % (0.0-4.0); HEMOGLOBIN 13.6 GM/DL (13.0-17.0); LYMPH % 14.7 % (9.0-44.0); LYMPHOCYTE # 1.3 TH/MM3 (1.0-4.8); MEAN CELL VOLUME 93.8 FL (80.0-100.0); MEAN CORPUSCULAR HEMOGLOBIN 31.8 PG (27.0-34.0); MEAN CORPUSCULAR HGB CONC 33.9 % (32.0-36.0); MEAN PLATELET VOLUME 8.5 FL (7.0-11.0); MONO % 12.1 % (0.0-8.0); MONOCYTE # 1.1 TH/MM3 (0-0.9); NEUT % 71.7 % (16.0-70.0); PLATELET COUNT 212 TH/MM3 (150-450); RED BLOOD COUNT 4.27 MIL/MM3 (4.50-5.90); RED CELL DISTRIBUTION WIDTH 13.5 % (11.6-17.2)
--- NOTE | 2018-02-13 15:22 | RADRPT ---
EXAM DATE: 02/13/2018 3:10 PM EDT AGE/SEX: 67 years / Male INDICATIONS: Altered mental status. CLINICAL DATA: This is the patient's initial encounter. Patient reports that signs and symptoms have been present for 1 day and indicates a pain score of Nonresponsive. MEDICAL/SURGICAL HISTORY: Non-responsive. Non-responsive. RADIATION DOSE: 44.13 CTDI (mGy) COMPARISON: [facility] [place], CT BRAIN W/O CONTRAST, 02/13/2018. C, CT BRAIN W/O CONTRAST, 09/17/2017. C, CT BRAIN W/O CONTRAST, 03/11/2017. . TECHNIQUE: CT of the head without contrast. Using automated exposure control and adjustment of the mA and/or kV according to patient size, radiation dose was kept as low as reasonably achievable to ob tain optimal diagnostic quality images. FINDINGS: Cerebrum: The ventricles are normal for age. Small lacunar infarct in the left basal ganglia is unc hanged from prior. Mild white matter hypoattenuation is stable. No evidence of midline shift, mass le dennis, hemorrhage or acute infarction. No extraaxial fluid collections are seen. Posterior Fossa: The cerebellum and brainstem are intact. The 4th ventricle is midline. The cerebe llopontine angle is unremarkable. Extracranial: The visualized portion of the orbits is intact. Skull: The calvaria is intact. No evidence of skull fracture. Asymmetric mucosal thickening in the left maxillary sinus. CONCLUSION: 1. No acute findings in the brain. 2. Left basal ganglia lacunar infarct and ischemic change in the supratentorial white matter, stable . 3. Left maxillary sinus disease. Electronically signed by: Matt Perales MD 02/13/2018 3:20 PM EDT
[2018-02-13 15:43] VITALS: BP 128/78; PULSE 87; RESP 18; O2SAT 99
[2018-02-13 15:43] LABS: ALBUMIN 3.8 GM/DL (3.4-5.0); ALKALINE PHOSPHATASE 96 U/L (45-117); ALT (GPT) 13 U/L (12-78); AST (GOT) 23 U/L (15-37); BICARBONATE 25.8 MEQ/L (21.0-32.0); BLOOD UREA NITROGEN 8 MG/DL (7-18); CALCIUM 8.8 MG/DL (8.5-10.1); CHLORIDE 101 MEQ/L (98-107); GLOMERULAR FILTRATION RATE 113 ML/MIN (>89); GLUCOSE,RANDOM 85 MG/DL (74-106); SODIUM (NA) 137 MEQ/L (136-145); TOTAL BILIRUBIN ADULT 0.8 MG/DL (0.2-1.0); TOTAL PROTEIN 7.8 GM/DL (6.4-8.2)
[2018-02-13 15:45] LABS: BILIRUBIN, URINE NEG (NEG); BLOOD, URINE SMALL (NEG); GLUCOSE,URINE NEG (NEG); HYALINE CAST, URINE 3 /lpf (RARE); KETONE, URINE NEG (NEG); MUCUS URINE FEW /lpf (OCC); NITRITE,URINE NEG (NEG); SQUAMOUS EPITHELIAL CELL URINE <1 /hpf (0-5); URINE COLOR YELLOW (YELLW/STRAW); URINE LEUKOCYTE ESTERASE NEG (NEG)
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
== END 2018-02-13 16:34 | disposition home or self-care (01) ==
LOC: NEPD 10:41
DX: H54.7 Unspecified visual loss (principal); Z59.0 Homelessness; Z72.0 Tobacco use; Z79.899 Other long term (current) drug therapy
CPT/HCPCS: 70450; 80053; 80307; 81001; 85025

== ENCOUNTER 2018-04-17 13:19 | Inpatient (IN) ==
[2018-04-17] MEDS ORDERED: Sod Chloride 0.9% Inj 1,000 ML IV.SIG ONE (13:33)
--- NOTE | 2018-04-17 13:40 | ED ---
HPI General Chief complaint: Medical Clearance Stated complaint: Psych Eval/Medical Time Seen by Provider: 04/17/18 13:23 Source: patient, RN notes reviewed, old records reviewed and police Mode of arrival: EMS History of Present Illness HPI narrative: 67-year-old male presents to the emergency department under Sher act by local police. Apparently, the patient is blind in homeless and gets around via a wheelchair. He has been almost willing out into traffic as he cannot see very well. The patient states he is 95% blind. He cannot see the shades to go into and has been sitting out in the sun for the past 5-6 hours in a local park. The patient states that he usually drinks alcohol daily. However, is not drinking the past few days because "I cannot get it". He does smoke tobacco. Denies illicit drug use. The patient has no medical complaints to me. He does have sunburn to his bilateral dorsal feet with old blistering noted. Patient is alert and oriented to person and place. He does not know the date or the year, but states it is because he does not keep up with it. Moderate severity. The patient denies any thoughts of hurting himself or anybody else. He is asking for food. Severity: moderate Associated symptoms: denies other symptoms Treatments prior to arrival: none Related Data Home Medications Medication Instructions Recorded Confirmed No Known Home Medications 04/17/18 04/17/18 Allergies Allergy/AdvReac Type Severity Reaction Status Date / Time No Known Allergies Allergy Unknown Uncoded 11/10/17 09:47 Review of Systems ROS: all other systems reviewed are negative PMFSH Medical History Medical History Blind in both eyes (Acute) Surgical History Surgical History No history of previous surgery (Acute) Social History Social History Substance History: No History of Abuse Smoking Status: Current every day smoker Tobacco Type: Cigarettes How Often Do You Have a Drink Containing Alcohol: 4 or more times a week Recent Travel in [facility] within the Last 8 Weeks: No Recent Out of Country Travel within the Last 8 Weeks: No Exam Narrative Exam Narrative: GENERAL: Well-nourished, well-developed male patient, afebrile SKIN: Focused skin assessment warm/dry. Sunburn noted to bilateral dorsal feet with crusting wound to feet HEAD: Normocephalic. Atraumatic EYES: No scleral icterus. No injection or drainage. NECK: Supple, trachea midline. No JVD or lymphadenopathy. CARDIOVASCULAR: Regular rate and rhythm without murmurs, gallops, or rubs. RESPIRATORY: Breath sounds equal bilaterally. No accessory muscle use. Patient coughing on exam GASTROINTESTINAL: Abdomen soft, non-tender, nondistended. MUSCULOSKELETAL: No cyanosis, or edema. BACK: No obvious deformity. PSYCHIATRIC: No delusional thought processes. No hallucinations. Course Initial Documented Vital Signs Temperature 99.1 F 04/17/18 13:33 Pulse Rate 87 04/17/18 13:33 Respiratory Rate 18 04/17/18 13:33 Blood Pressure 134/58 L 04/17/18 13:33 Pulse Oximetry 97 04/17/18 13:33 Last Documented Vital Signs Temperature 99.1 F 04/17/18 13:33 Pulse Rate 87 04/17/18 13:33 Respiratory Rate 18 04/17/18 13:33 Blood Pressure 157/67 H 04/17/18 13:38 Pulse Oximetry 97 04/17/18 13:33 Medical Decision Making MDM Narrative Medical decision making narrative: 67-year-old male presents to the emergency department via EMS under Sher act by local police. He is homeless and blind cannot take care of himself. Diabetes states that he has contacted [facility] who is on their way to see him. IV access established. CBC, CMP, TSH, alcohol level, urine drug screen, chest x-ray, CT the brain are ordered and pending. Patient is given NS 1 L IV bolus. CBC shows no acute abnormality. CMP shows hyponatremia 127, hypokalemia 3.3, hyperglycemia 132. TSH is 1.460. Alcohol level is less than 3. UDS is pending. Chest x-ray shows no acute abnormality. CT of the brain shows no acute findings in the brain. Patient is given second liter normal saline IV bolus for hyponatremia. He was given potassium 20 mEq p.o. The patient was seen by the psychiatric nurse practitioner and the Shre act was lifted as he has no mental illness and does not meet criteria for Sher act. I discussed the case with the pillowcase cutter who has been evaluating the patient. She recommends observation admission for placement as it will not happen today. The patient is unsafe discharge as he is blind, homeless, wheelchair-bound. Hospitalist is paged for admission. Residents accepted admission. Medical Screen Exam Complete: Yes Emergency Medical Condition: Yes Differential Diagnosis Differential Diagnosis: inability to care for self vs. dehydration vs. electrolyte abnormality Medical Records Medical records reviewed: Yes I reviewed the patient's medical records. patient was seen last twice in January 2018 Lab Data Result diagrams: 04/17/18 13:45 04/17/18 13:45 Lab Results 04/17/18 04/17/18 Range/Units 13:45 13:45 WBC 5.4 (4.0-11.0) th/mm3 RBC 3.91 L (4.50-5.90) mil/mm3 Hgb 12.4 L (13.0-17.0) gm/dL Hct 37.0 L (39.0-51.0) % MCV 94.7 (80.0-100.0) fL MCH 31.7 (27.0-34.0) pg MCHC 33.4 (32.0-36.0) % RDW 13.8 (11.6-17.2) % Plt Count 241 (150-450) th/mm3 MPV 7.7 (7.0-11.0) fL Neut % (Auto) 73.3 H (16.0-70.0) % Lymph % (Auto) 10.7 (9.0-44.0) % Iron % (Auto) 15.3 H (0.0-8.0) % Eos % (Auto) 0.3 (0.0-4.0) % Baso % (Auto) 0.4 (0.0-2.0) % Neut # (Auto) 4.0 (1.8-7.7) th/mm3 Lymph # (Auto) 0.6 L (1.0-4.8) th/mm3 Iron # (Auto) 0.8 (0.0-0.9) th/mm3 Eos # (Auto) 0.0 (0.0-0.4) th/mm3 Baso # (Auto) 0.0 (0.0-0.2) th/mm3 WBC Differential . Differential Comment Auto diff final Sodium 127 L (136-145) meq/L Potassium 3.3 L (3.5-5.1) meq/L Chloride 94 L (98-107) meq/L Carbon Dioxide 26.5 (21.0-32.0) meq/L Anion Gap 7 (5-15) meq/L BUN 18 (7-18) mg/dL Creatinine 0.80 (0.60-1.30) mg/dL Estimated GFR Greater than 89 (>89) mL/min Random Glucose 132 H (74-106) mg/dL Calcium 8.1 L (8.5-10.1) mg/dL Total Bilirubin 0.7 (0.2-1.0) mg/dL AST 21 (15-37) U/L ALT 18 (12-78) U/L Alkaline Phosphatase 79 (45-117) U/L Total Protein 7.1 (6.4-8.2) g/dL Albumin 3.3 L (3.4-5.0) g/dL TSH 1.460 (0.358-3.740) uIU/mL Serum Alcohol Less than 3 (0-5) mg/dL Imaging Data Radiologist's impression: Chest X-Ray 04/17/18 13:32 CONCLUSION: 1. No acute abnormality or significant interval change. Head CT 04/17/18 13:33 CONCLUSION: 1. No acute findings in the brain. 2. Mild left maxillary sinus disease. . Discharge Plan Discharge Disposition Patient Disposition: 30 Still Patient Discharge Condition Condition: Stable Discharge Details Diagnosis: Hyponatremia, Impaired mobility and ADLs Physicians Team ED Provider: Jose Lyons ED Midlevel Provider: Mily Franks Primary Care Provider: Maryann Arellano Rxs /Orders / Referrals /Forms Prescriptions: No Action No Known Home Medications RF: 0 Status ED Status: With Doctor
[2018-04-17 14:02] LABS: Baso % (Auto) 0.4 % (0.0-2.0); Eos % (Auto) 0.3 % (0.0-4.0); Hemoglobin 12.4 gm/dL (13.0-17.0); Lymph # (Auto) 0.6 th/mm3 (1.0-4.8); Lymph % (Auto) 10.7 % (9.0-44.0); Mean Corpuscular HGB Conc 33.4 % (32.0-36.0); Mean Corpuscular Hemoglobin 31.7 pg (27.0-34.0); Mean Corpuscular Volume 94.7 fL (80.0-100.0); Mean Platelet Volume 7.7 fL (7.0-11.0); Mono # (Auto) 0.8 th/mm3 (0.0-0.9); Mono % (Auto) 15.3 % (0.0-8.0); Neut % (Auto) 73.3 % (16.0-70.0); Platelet Count 241 th/mm3 (150-450); Red Blood Count 3.91 mil/mm3 (4.50-5.90); Red Cell Distribution Width 13.8 % (11.6-17.2); White Blood Count 5.4 th/mm3 (4.0-11.0)
[2018-04-17 14:25] LABS: Alanine Aminotransferase 18 U/L (12-78); Albumin 3.3 g/dL (3.4-5.0); Anion Gap 7 meq/L (5-15); Aspartate Aminotransferase 21 U/L (15-37); Blood Urea Nitrogen 18 mg/dL (7-18); Calcium 8.1 mg/dL (8.5-10.1); Carbon Dioxide 26.5 meq/L (21.0-32.0); Chloride 94 meq/L (98-107); Glomerular Filtration Rate Greater Than 89 mL/min (>89); Glucose,Random 132 mg/dL (74-106); Potassium 3.3 meq/L (3.5-5.1); Sodium 127 meq/L (136-145)
[2018-04-17 14:35] LABS: Alkaline Phosphatase 79 U/L (45-117); Total Protein 7.1 g/dL (6.4-8.2)
[2018-04-17] MEDS ORDERED: Sod Chloride 0.9% Inj 1,000 ML IV.CONT ONE (14:35)
--- NOTE | 2018-04-17 14:49 | XR ---
EXAM DATE: 04/17/2018 2:38 PM EDT AGE/SEX: 67 years / Male INDICATIONS: Cough. CLINICAL DATA: This is the patient's initial encounter. Patient reports that signs and symptoms have been present for 1 day and indicates a pain score of 0/10. MEDICAL/SURGICAL HISTORY: Hypertension. None. COMPARISON: [facility] [place] PULMON[place]GIOGRAM, 03/11/2017. . Chest x-ray 09/17/2017 FINDINGS: No new focal pleural or parenchymal opacities. The cardiomediastinal contours are unremarkable. Osse ous structures are intact. CONCLUSION: 1. No acute abnormality or significant interval change. Electronically signed by: Samuel Villa MD 04/17/2018 2:47 PM EDT
--- NOTE | 2018-04-17 15:59 | ED ---
HPI - Psych - General Source: patient, RN notes reviewed, old records reviewed, police Mode of arrival: EMS Limitations: physical limitation - History of Present Illness complaint: other (wants to live in a [facility] ) Duration: constant History of same: Yes Relieving factors: none Exacerbating factors: none Context: recent alcohol abuse - General Chief Complaint: Medical Clearance Stated Complaint: Psych Eval/Medical Time Seen by Provider: 04/17/18 13:23 - History of Present Illness HPI Narrative: Patient is a 67-year-old male who is blind and wheelchair dependent , who was placed under a Sher act by the [employer] [employer]. Sher act states," I have reason to believe that Mr. Mateus Welch has a mental illness as defined by section 394.455. [place] statue as is apparent that he lacks the mental and emotional processes that exercise control over his actions. I also believe that Mr. Welch is unable to perceive and understand reality and that it is impairment substantially interferes with his ability to meet ordinary demands of living. Mr. Welch has refused all voluntary examination after conscientious explanation of his need for examination. I believe that Mr. Welch is unable to determine for himself that examination is necessary. Without care treatment Mr. Welch is likely to suffer from the neglect, because he refuses to care for himself. The self-neglect Mr. Welch suffers from poses a very real and substantial harm to his well-being. Mr. Welch has no willing family members, friends or offer services to help prevent avoid this neglect. There is a very substantial likelihood that without care or treatments to Rebekah self-neglect will cause him serious bodily harm. This is evident from the third degree sunburn blistering on his legs he received 1 day when he was stranded and could not move out of the sun on his own. These healing blisters are peeling skin and still exposed to the sun all day long. Mr. Welch claims to be homeless in need of wheelchair and blind Mr. Welch can stand to use the restroom but claims that he is confined to a wheelchair he states that a wheel fell off his personal wheelchair so now he uses [facility] wheelchair. Mr. Welch is a gravitates back to [facility] where he sits in his chair or other homeless people deliver him food once in a while. Mr. Welch does not possess the desire or ability to care for himself. Mr. Welch's health both mental and physical has declined over the past 2 months. DCF has been notified the facility has been taken into custody under a Sher act and transported to [facility] [address]." Chart reviewed and discussed with nursing staff. Patient is in room C36 of the emergency room. Patient is alert and oriented 4. He is malodorous and dishevel. Patient is blind. He is able to transfer from the stretcher to the [facility] at his bedside. His fund of knowledge is normal. His attention and concentration is adequate. His insight and judgment is good. His mood is angry and is affect is anxious. This patient uses a wheelchair in meet his needs to get from one point to another. He has no abnormal thought content. No perceptual distortions. Recent and remote memory is mildly impaired. Thought association is relevant. Thought process is logical. Patient denies any suicidal homicidal ideations. This patient has been for 30 years and his lives in [place]. He also has a 3 4-year-old daughter who also lives in [place]. He states that he has been homeless for approximately 5 years. Prior to that time he lived in a trailer but that did not work out. He smokes at least a pack per day. He drinks on a regular basis, mostly beer. He elicits no surgical history. His medical history is all related to his eyes and his cataracts. He has poor dentition and I could only visualize one tooth. Patient endorses no past mental health care. He has never been under the care of psychiatry. Patient states that he was his choice to live on the streets. He feels that now he is getting too old and he is willing to move into an assisted living facility. Patient is at low risk for self-harm. This patient has no psychiatric history. He endorses no suicidal homicidal ideations. He does not meet inpatient psychiatry admission criteria. Thank you for this consultation. (Roselyn Oseguera) - Related Data Home Medications Medication Instructions Recorded Confirmed No Known Home Medications 04/17/18 04/17/18 Allergies Allergy/AdvReac Type Severity Reaction Status Date / Time No Known Allergies Allergy Unknown Uncoded 11/10/17 09:47 Review of Systems All other systems reviewed negative except as stated in HPI Eyes: Reports other (patient is blind) Musculoskeletal: Reports other (patient utilizes a wheelchair to assist ambulation.) Psychiatric: Reports other (patient is angry and demanding of staff. ) PMF - History History Provided By: Patient, Shaper Setter / EMT - Medical History Medical History: Medical History (Last Updated 04/17/18 @ 13:37 by Manasa Lawson) Blind in both eyes - Surgical History Surgical History: Surgical History (Last Updated 04/17/18 @ 13:37 by Manasa Lawson) No history of previous surgery - Tobacco History Tobacco Use In Past 30 Days: Yes Smoking Status: Current every day smoker Tobacco Type: Cigarettes - Alcohol History How Often Do You Have a Drink Containing Alcohol: 4 or more times a week - Substance Use History Substance History: No History of Abuse - Travel History Recent Travel in the [facility] Within the Last 8 Weeks: No Recent Travel Out of the Country Within the Last 8 Weeks: No - Immunization History Tetanus Immunization: Unsure Hx Influenza Vaccine This Season: No Psychiatric History - Psychiatric History Patient has no mental health care in his past. (Roselyn Oseguera) Physical Exam - General Limitations: physical limitation, other (uses a wheelchair to ambulate ) - Head Head exam: atraumatic - Eye Eye exam: Present: other (blind) - ENT ENT exam: Present: other (only one tooth, poor dentition ) Mental Status Examination Appearance: Dirty, Disheveled, Malodorous Consciousness: Alert Orientation: x4 Motor Activity: Other (wheelchair bound ) Speech: Unremarkable Language: Adequate Fund of Knowledge: Adequate Attention and Concentration: Adequate Memory: Unremarkable Affect: Irritable Thought Process & Associations: Logical Thought Content: Appropriate Hallucination Type: None Delusion Type: None Suicidal Ideation: No Suicidal Plan: No Suicidal Intention: No Homicidal Ideation: No Homicidal Plan: No Homicidal Intention: No Insight: Adequate Judgment: Adequate Initial Documented Vital Signs Temperature 99.1 F 04/17/18 13:33 Pulse Rate 87 04/17/18 13:33 Respiratory Rate 18 04/17/18 13:33 Blood Pressure 134/58 L 04/17/18 13:33 Pulse Oximetry 97 04/17/18 13:33 Last Documented Vital Signs Temperature 99.1 F 04/17/18 13:33 Pulse Rate 87 04/17/18 13:33 Respiratory Rate 18 04/17/18 13:33 Blood Pressure 157/67 H 04/17/18 13:38 Pulse Oximetry 97 04/17/18 13:33 MDM - Psych - Diagnosis (1) Adjustment disorder Status: Acute - Medical Records Attestation: I reviewed the patient's medical records. - Lab Data Attestation: I reviewed the patient's lab results. Result diagrams: 04/17/18 13:45 04/17/18 13:45 - MDM Narrative Medical decision making narrative: Patient is a 67-year-old homeless male who is been living on the streets for the last 5 years. He was placed under a Sher act by the [facility] [employer] as the officers feel that he is unable to continue to care for himself. Patient is blind and wheelchair dependent. Patient is very adamant that he can make his own decisions. He states that he has never received any mental health care and that he does not feel that that is warranted at this time. He does acknowledge that he is getting older and that he would probably do better in an assisted living facility due to his decreased mobility and lack of sight. He states that when he will only go into a facility that will allow him to smoke. He also acknowledges that he drinks on a daily basis. He states that that would have to be addressed that he can handle not having access to beer if he was put into an [facility]. Patient is at low risk for self-harm. Patient has no past psychiatric history. He endorses no suicidal homicidal ideations. This patient does not meet inpatient psychiatric admission criteria. Thank you for this consultation. I have contacted Case Management for assistance. Per the [place] Act, the [place] [employer] has also contacted DCF. (Roselyn Oseguera) - Lab Data Lab Results 04/17/18 04/17/18 Range/Units 13:45 13:45 WBC 5.4 (4.0-11.0) th/mm3 RBC 3.91 L (4.50-5.90) mil/mm3 Hgb 12.4 L (13.0-17.0) gm/dL Hct 37.0 L (39.0-51.0) % MCV 94.7 (80.0-100.0) fL MCH 31.7 (27.0-34.0) pg MCHC 33.4 (32.0-36.0) % RDW 13.8 (11.6-17.2) % Plt Count 241 (150-450) th/mm3 MPV 7.7 (7.0-11.0) fL Neut % (Auto) 73.3 H (16.0-70.0) % Lymph % (Auto) 10.7 (9.0-44.0) % Hardy % (Auto) 15.3 H (0.0-8.0) % Eos % (Auto) 0.3 (0.0-4.0) % Baso % (Auto) 0.4 (0.0-2.0) % Neut # (Auto) 4.0 (1.8-7.7) th/mm3 Lymph # (Auto) 0.6 L (1.0-4.8) th/mm3 Hardy # (Auto) 0.8 (0.0-0.9) th/mm3 Eos # (Auto) 0.0 (0.0-0.4) th/mm3 Baso # (Auto) 0.0 (0.0-0.2) th/mm3 WBC Differential . Differential Comment Auto diff final Sodium 127 L (136-145) meq/L Potassium 3.3 L (3.5-5.1) meq/L Chloride 94 L (98-107) meq/L Carbon Dioxide 26.5 (21.0-32.0) meq/L Anion Gap 7 (5-15) meq/L BUN 18 (7-18) mg/dL Creatinine 0.80 (0.60-1.30) mg/dL Estimated GFR Greater than 89 (>89) mL/min Random Glucose 132 H (74-106) mg/dL Calcium 8.1 L (8.5-10.1) mg/dL Total Bilirubin 0.7 (0.2-1.0) mg/dL AST 21 (15-37) U/L ALT 18 (12-78) U/L Alkaline Phosphatase 79 (45-117) U/L Total Protein 7.1 (6.4-8.2) g/dL Albumin 3.3 L (3.4-5.0) g/dL TSH 1.460 (0.358-3.740) uIU/mL Serum Alcohol Less than 3 (0-5) mg/dL
--- NOTE | 2018-04-17 16:27 | CT ---
EXAM DATE: 04/17/2018 4:19 PM EDT AGE/SEX: 67 years / Male INDICATIONS: Altered Mental Status CLINICAL DATA: This is the patient's initial encounter. Patient reports that signs and symptoms have been present for 1 day and indicates a pain score of 0/10. MEDICAL/SURGICAL HISTORY: None. None. RADIATION DOSE: 64.65 CTDI (mGy) COMPARISON: [facility] [place], [place] BRAIN W/O CONTRAST, 02/13/2018. . TECHNIQUE: CT of the head without contrast. Using automated exposure control and adjustment of the mA and/or kV according to patient size, radiation dose was kept as low as reasonably achievable to ob tain optimal diagnostic quality images. DICOM format image data is available electronically for revi ew and comparison. FINDINGS: Cerebrum: The ventricles are normal for age. No evidence of midline shift, mass lesion, hemorrhage or acute infarction. Stable lacunar infarct in the left basal ganglia. Stable decreased attenuation in the supratentorial white matter. No extraaxial fluid collections are seen. Posterior Fossa: The cerebellum and brainstem are intact. The 4th ventricle is midline. The cerebe llopontine angle is unremarkable. Extracranial: The visualized portion of the orbits is intact. Mild mucosal thickening in the visuali zed portion of the inferior left maxillary sinus. Skull: The calvaria is intact. No evidence of skull fracture. CONCLUSION: 1. No acute findings in the brain. 2. Mild left maxillary sinus disease. . Electronically signed by: Matt Perales MD 04/17/2018 4:26 PM EDT
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
[2018-04-17] MEDS ORDERED: Acetaminophen 325 MG Tablet PO PRN (17:45)
[2018-04-17] MEDS: Heparin - SQ 10,000 UNITS/ML Vial SQ SCH (19:47)
[2018-04-17] MEDS: Multivitamin Inj 10 ML, Thiamine Inj 100 MG, Folic Acid Inj 1 MG in Sodium Chloride 0.4... IV.SIG SCH (21:48)
[2018-04-18] MEDS: Heparin - SQ 10,000 UNITS/ML Vial SQ SCH ×2 (05:58→17:24)
[2018-04-18 07:10] LABS: Amphetamine Screen,Urine Neg (Neg); Barbiturate Screen,Urine Neg (Neg); Cannabinoid Screen,Urine Neg (Neg); Cocaine Screen,Urine Neg (Neg)
[2018-04-18 07:18] LABS: Opiate Screen,Urine Neg (Neg)
[2018-04-18 08:26] LABS: Alanine Aminotransferase 15 U/L (12-78); Anion Gap 5 meq/L (5-15); Aspartate Aminotransferase 17 U/L (15-37); Blood Urea Nitrogen 14 mg/dL (7-18); Calcium 8.1 mg/dL (8.5-10.1); Carbon Dioxide 26.6 meq/L (21.0-32.0); Chloride 99 meq/L (98-107); Glomerular Filtration Rate Greater Than 89 mL/min (>89); Glucose,Random 87 mg/dL (74-106); Potassium 3.8 meq/L (3.5-5.1); Sodium 131 meq/L (136-145)
[2018-04-18 08:29] LABS: Alkaline Phosphatase 72 U/L (45-117); Baso % (Auto) 0.5 % (0.0-2.0); Eos % (Auto) 0.5 % (0.0-4.0); Hematocrit 35.5 % (39.0-51.0); Lymph # (Auto) 0.7 th/mm3 (1.0-4.8); Lymph % (Auto) 14.8 % (9.0-44.0); Mean Corpuscular HGB Conc 33.8 % (32.0-36.0); Mean Corpuscular Hemoglobin 32.3 pg (27.0-34.0); Mean Corpuscular Volume 95.6 fL (80.0-100.0); Mean Platelet Volume 7.7 fL (7.0-11.0); Mono # (Auto) 0.6 th/mm3 (0.0-0.9); Mono % (Auto) 12.4 % (0.0-8.0); Neut # (Auto) 3.3 th/mm3 (1.8-7.7); Neut % (Auto) 71.8 % (16.0-70.0); Platelet Count 224 th/mm3 (150-450); Red Blood Count 3.72 mil/mm3 (4.50-5.90); Red Cell Distribution Width 13.7 % (11.6-17.2); Total Protein 6.5 g/dL (6.4-8.2); White Blood Count 4.6 th/mm3 (4.0-11.0)
--- NOTE | 2018-04-18 10:21 | P.HPFP ---
History of Present Illness Primary Care Physician: Maryann Arellano MD Chief Complaint: Social admission History of Present Illness: Mr. Welch is a 67-year-old white male with a past medical history of blindness who presented to the ED according to him due to a combination of time and age. He was brought in by [facility] due to almost wheeling himself into the street in his wheelchair. He stated that he was unable to remember where he was going. He stated that he was not feeling sick at that time. However, he was feeling sick to his stomach at the time of admission and states that he needs a good night sleep. He states that he has had a bowel movement twice since he has been here. He also states that he has pain in his feet from where they had been sunburned from him sitting out in the sun all day. He wants to go to a sight rehab for his blindness, but his main goal currently is to get some food and sleep. He was sleeping when we entered the room this morning. He was able to answer questions about his site and stated that he could at best sees shadows when he holds his hand about on front of his eye. His ophthalmology appointment had recommended medications mainly drops for glaucoma that he has not been taking and also surgery for cataracts that he has not had. When asked how he was managing out on the street he stated he was not eating well he was not much getting around very well. He is interested in finding a better situation and place to live if at all possible. PMH blindness had a broken ankle PSH none Social hx homeless cigarettes- 1ppd alcohol- when he does, last drink was beer, unsure when he had last drink illicit drugs- none - Diagnosis (1) Hyponatremia (2) Hypokalemia (3) Alcohol abuse (4) Impaired mobility and ADLs (5) Sunburn (6) Blindness (7) Nutrition, metabolism, and development symptoms (8) DVT prophylaxis Review of Systems Constitutional: Reports increased appetite, Denies anorexia Eyes: Reports change in vision, Reports loss of vision, Denies blind spots, Denies sensitivity to light Ears, Nose, Mouth, and Throat: Denies abnormal hearing, Denies lip swelling, Denies nasal discharge Cardiovascular: Denies chest pain, Denies fainting, Denies irregular heart rhythm, Denies shortness of breath, Denies shortness of breath when lying down Respiratory: Denies cough, Denies pain with cough, Denies shortness of breath Gastrointestinal: Denies abdominal pain, Denies constipation, Denies pain with swallowing Musculoskeletal: Reports abnormal walking Skin/Breast: Reports skin pain, Reports sores, Denies acne Neurologic: Reports abnormal walking, Reports burning sensations, Reports loss of vision, Denies abnormal hearing, Denies fainting Psychiatric: Denies seeing things others do not see, Denies thoughts of hurting/ killing others, Denies thoughts of hurting/killing yourself Hematologic/Lymphatic: Denies easy bleeding PMFSH - History History Provided By: Patient, Steward/[employer] / EMT - Medical History Medical History: Medical History (Last Reviewed 04/18/18 @ 08:49 by Ana Fuentes) Blind in both eyes - Surgical History Surgical History: Surgical History (Last Reviewed 04/18/18 @ 08:49 by Ana Fuentes) No history of previous surgery - Tobacco History Tobacco Use In Past 30 Days: Yes Smoking Status: Current every day smoker Tobacco Type: Cigarettes - Alcohol History How Often Do You Have a Drink Containing Alcohol: 4 or more times a week - Substance Use History Substance History: No History of Abuse - Travel History Recent Travel in the USA Within the Last 8 Weeks: No Recent Travel Out of the Country Within the Last 8 Weeks: No - Immunization History Tetanus Immunization: Unsure Hx Influenza Vaccine This Season: No Medications and Allergies Active Medications: Active Medications Acetaminophen (Tylenol) 650 mg PO Q4H PRN PRN Reason: Temp > 100.4 Enalaprilat (Vasotec Inj) 1.25 mg IV.PUSH Q6H PRN PRN Reason: SEE LABEL COMMENTS Flumazenil (Romazecon Inj) 0.2 mg IV.PUSH Q1M PRN PRN Reason: OVERSEDATION Haloperidol Lactate (Haldol Inj) 1 mg IV.PUSH Q15M PRN PRN Reason: for severe agitation Heparin Sodium (Porcine) (Heparin Inj) 5,000 units SQ Q12H TAVARES Last Admin: 04/18/18 05:58 Dose: 5,000 units Multivitamins 10 ml/ Thiamine HCl 100 mg/ Folic Acid 1 mg/Sodium Chloride 511.2 mls @ 127.8 mls/hr IV.SIG DAILY TAVARES Last Infusion: 04/18/18 02:36 Dose: Infused Lorazepam (Ativan) 1 mg PO Q4H PRN PRN Reason: for CIWA 8-10 Lorazepam (Ativan) 2 mg PO Q2H PRN PRN Reason: for CIWA 11-14 Lorazepam (Ativan Inj) 2 mg IV.PUSH Q1H PRN PRN Reason: for CIWA 15-20 Lorazepam (Ativan Inj) 2 mg IV.PUSH Q15M PRN PRN Reason: for CIWA > 20 Lorazepam (Ativan Inj) 1 mg IV.PUSH Q4H PRN PRN Reason: for CIWA 8-10 Lorazepam (Ativan Inj) 2 mg IV.PUSH Q2H PRN PRN Reason: for CIWA 11-14 Last Admin: 04/17/18 21:46 Dose: 2 mg Ondansetron HCl (Zofran Inj) 4 mg IV.PUSH Q6H PRN PRN Reason: NAUSEA OR VOMITING Allergies Allergy/AdvReac Type Severity Reaction Status Date / Time No Known Allergies Allergy Unknown Uncoded 11/10/17 09:47 Home Medications Medication Instructions Recorded Confirmed Type No Known Home Medications 04/17/18 04/17/18 History Exam Vital signs: Vital Signs 04/17/18 13:33 04/17/18 13:38 04/17/18 17:38 Temperature 99.1 F Pulse Rate 87 74 Respiratory Rate 18 18 Blood Pressure 134/58 L 157/67 H 156/72 H Pulse Oximetry 97 98 04/17/18 20:00 04/18/18 00:00 04/18/18 04:00 Temperature 98.6 F 98.7 F 98.9 F Pulse Rate 78 81 106 H Respiratory Rate 16 17 17 Blood Pressure 161/87 H 162/81 H 155/92 H Pulse Oximetry 100 98 95 04/18/18 07:34 Temperature Pulse Rate 64 Respiratory Rate 16 Blood Pressure 168/89 H Pulse Oximetry Intake & Output 04/17/18 04/18/18 04/18/18 18:59 06:59 18:59 Intake Total 1999 751.2 / 751.2 Balance 1999 751.2 / 751.2 Weight 90.718 kg 90.7 kg Intake: IV 1999 511.2 / 511.2 MVI-12 Inj 10 ML Thiamine Inj 511.2 / 511.2 100 MG Folvite Inj 1 MG In 1/2 Normal Saline Inj 500 ML @ 127. 8 mls/hr IV.SIG DAILY TAVARES Rx#: [id number] NS Inj 1,000 ML @ Wide Open IV. 1000 / 1000 SIG BOLUS ONE Rx#:[id number] Oral 240 / 240 Other: # Voids 2 Date of Last Bowel Movement 04/17/18 04/17/18 # Bowel Movements 2 0 Weight On Admission 90.7 kg - Constitutional no acute distress, thin, somnolent - Routine HEENT Exam Head: Absent: normocephalic, atraumatic, facial swelling Eye: Present: EOMI (He keeps his eyes shut bilaterally but when he opens they do move spontaneously normally) - Routine Neck Exam Present: supple, full ROM, trachea midline - Routine Respiratory Exam Present: CTA bilaterally. Absent: accessory muscle use, patient mechanically ventilated, decreased breath sounds, prolonged expiratory phase - Routine Cardiovascular Exam Present: RRR. Absent: murmur, gallop, rubs - Routine Abdominal Exam Present: soft. Absent: tenderness, distended, rebound - Routine Extremities Exam Absent: cyanosis - Routine Skin Exam Present: dry, lesions, wounds. Absent: mottling, petechiae, ecchymosis (Looks like he has had repeated sunburns to the tops of his feet with some peeling skin peripherally and some wounds that look like they baldwin peeled and were probably reburned) - Routine Neurological Exam Present: alert, moving all extremities. Absent: sensory deficit, motor deficit Results - Labs Result diagrams: 04/18/18 07:40 04/18/18 07:40 Abnormal lab results 04/17/18 04/17/18 04/18/18 Range/Units 13:45 13:45 07:40 RBC 3.91 L 3.72 L (4.50-5.90) mil/mm3 Hgb 12.4 L 12.0 L (13.0-17.0) gm/dL Hct 37.0 L 35.5 L (39.0-51.0) % Neut % (Auto) 73.3 H 71.8 H (16.0-70.0) % [place] % (Auto) 15.3 H 12.4 H (0.0-8.0) % Lymph # (Auto) 0.6 L 0.7 L (1.0-4.8) th/mm3 Sodium 127 L (136-145) meq/L Potassium 3.3 L (3.5-5.1) meq/L Chloride 94 L (98-107) meq/L Creatinine (0.60-1.30) mg/dL Random Glucose 132 H (74-106) mg/dL Calcium 8.1 L (8.5-10.1) mg/dL Albumin 3.3 L (3.4-5.0) g/dL 04/18/18 Range/Units 07:40 RBC (4.50-5.90) mil/mm3 Hgb (13.0-17.0) gm/dL Hct (39.0-51.0) % Neut % (Auto) (16.0-70.0) % [place] % (Auto) (0.0-8.0) % Lymph # (Auto) (1.0-4.8) th/mm3 Sodium 131 L (136-145) meq/L Potassium (3.5-5.1) meq/L Chloride (98-107) meq/L Creatinine 0.58 L (0.60-1.30) mg/dL Random Glucose (74-106) mg/dL Calcium 8.1 L (8.5-10.1) mg/dL Albumin 3.0 L (3.4-5.0) g/dL Short CBC 04/17/18 04/18/18 Range/Units 13:45 07:40 WBC 5.4 4.6 (4.0-11.0) th/mm3 Hgb 12.4 L 12.0 L (13.0-17.0) gm/dL Hct 37.0 L 35.5 L (39.0-51.0) % Plt Count 241 224 (150-450) th/mm3 BMP 04/17/18 04/18/18 13:45 07:40 Sodium 127 L 131 L Potassium 3.3 L 3.8 Chloride 94 L 99 Carbon Dioxide 26.5 26.6 BUN 18 14 Creatinine 0.80 0.58 L Calcium 8.1 L 8.1 L Liver Function 04/17/18 04/18/18 Range/Units 13:45 07:40 Total Bilirubin 0.7 0.7 (0.2-1.0) mg/dL AST 21 17 (15-37) U/L ALT 18 15 (12-78) U/L Alkaline Phosphatase 79 72 (45-117) U/L Albumin 3.3 L 3.0 L (3.4-5.0) g/dL - Imaging Impressions Chest X-Ray 04/17/18 13:32 CONCLUSION: 1. No acute abnormality or significant interval change. Head CT 04/17/18 13:33 CONCLUSION: 1. No acute findings in the brain. 2. Mild left maxillary sinus disease. . Caprini VTE Risk Assessment Caprini VTE Risk Assessment: Moderate/High Risk (score >= 2) Caprini Risk Assessment Model: Point Value = 1 Point Value = 2 Point Value = 3 Point Value = 5 Age 41-60 Minor surgery BMI > 25 kg/m2 Swollen legs Varicose veins or History of unexplained or recurrent spontaneous Oral contraceptives or hormone replacement Sepsis (< 1 month) Serious lung disease, including pneumonia (< 1 month) Abnormal pulmonary function Acute myocardial infarction Congestive heart failure (< 1 month) History of inflammatory bowel disease Medical patient at bed rest Age 61-74 Arthroscopic surgery Major open surgery (> 45 min) Laparoscopic surgery (> 45 min) Malignancy Confined to bed (> 72 hours) Immobilizing plaster cast Central venous access Age >= 75 History of VTE Family history of VTE Factor V Leiden Prothrombin [id number] Lupus anticoagulant Anticardiolipin antibodies Elevated serum homocysteine Heparin-induced thrombocytopenia Other congenital or acquired thrombophilia Stroke (< 1 month) Elective arthroplasty Hip, pelvis, or leg fracture Acute spinal cord injury (< 1 month) Prophylaxis Regimen: Total Risk Factor Score Risk Level Prophylaxis Regimen 0-1 Low Early ambulation 2 Moderate Order ONE of the following: *Sequential Compression Device (SCD) *Heparin 5000 units SQ BID 3-4 Higher Order ONE of the following medications: *Heparin 5000 units SQ TID *Enoxaparin/Lovenox 40 mg SQ daily (WT < 150 kg, CrCl > 30 mL/min) *Enoxaparin/Lovenox 30 mg SQ daily (WT < 150 kg, CrCl > 10-29 mL/min) *Enoxaparin/Lovenox 30 mg SQ BID (WT < 150 kg, CrCl > 30 mL/min) AND/OR *Sequential Compression Device (SCD) 5 or more Highest Order ONE of the following medications: *Heparin 5000 units SQ TID (Preferred with Epidurals) *Enoxaparin/Lovenox 40 mg SQ daily (WT < 150 kg, CrCl > 30 mL/min) *Enoxaparin/Lovenox 30 mg SQ daily (WT < 150 kg, CrCl > 10-29 mL/min) *Enoxaparin/Lovenox 30 mg SQ BID (WT < 150 kg, CrCl > 30 mL/min) AND *Sequential Compression Device (SCD) Assessment and Plan - Assessment (1) Hyponatremia Code(s): E87.1 - Hypo-osmolality and hyponatremia Status: Acute Plan: Sodium level on admission was 127. Patient was continuously asking for water in the ED. May be due to psychogenic polydipsia versus SIADH versus beer potomania -Given 2x 1 L NS bolus in ED -Repeat BMP (2) Hypokalemia Code(s): E87.6 - Hypokalemia Status: Acute Plan: Potassium at 3.3 upon admission. -Given KCl 20meq once in ED (3) Alcohol abuse Code(s): F10.10 - Alcohol abuse, uncomplicated Status: Acute Plan: Her chart review, patient has a long history of alcohol abuse. Patient is unsure of his last drink. -Will initiate CIWA protocol -Escalate care as needed -Rally pack IV daily (4) Impaired mobility and ADLs Code(s): Z74.09 - Other reduced mobility Status: Acute Plan: Patient states that he is unable to walk using his cane anymore due to his broken ankle and therefore is now using a wheelchair. According to psychiatry' s note, patient is unable to and will not care for himself. Head CT on admission showed no acute findings in the brain -PT consulted -OT consulted -Case management consulted for possible placement/safe discharge (5) Sunburn Code(s): L55.9 - Sunburn, unspecified Status: Acute Plan: Blistering sunburn of dorsal aspect of bilateral feet. No systemic sx. -Calamine lotion -Consult wound care, appreciate recommendations (6) Blindness Code(s): H54.7 - Unspecified visual loss Status: Acute Plan: According to chart review from Ophthalmology in [place], patient has a history of bilateral mature cataracts and phacomorphic glaucoma. -Pt has not been on his medications for a while. Will restart medicines though I am not certain at this point without being good about taking them regularly that he does not have permanent damage. (7) Nutrition, metabolism, and development symptoms Code(s): R63.8 - Other symptoms and signs concerning food and fluid intake Status: Acute Plan: Fluids: tolerating PO/NS @ 100ml/hr Electrolytes: monitor and replete as needed, noted hyponatremia and hypokalemia as above Nutrition: Regular diet GI Prophylaxis: none indicated at this time (8) DVT prophylaxis Status: Acute Plan: DVT Prophylaxis: Early ambulation. Heparin 5000U subQ q12hr - Assessment and Plan 67-year-old male with a past medical history of alcohol abuse, bilateral cataracts, phacomorphic glaucoma presenting to the ED due to a Sher act. Sher act has been lifted by psychiatry. Patient is not a safe discharge due to blindness and wheelchair bound. Admitted for observation and Case management consulted for placement. Discharge Planning: Consult to case management as he was about to we will himself into traffic and could easily have been killed. Even though he does not want to commit suicide this is almost the same thing. H&P: Quality - VTE Deep Vein Thrombosis/Pulmonary Embolism Present on Admission: No
[2018-04-18] MEDS: Multivitamin Inj 10 ML, Thiamine Inj 100 MG, Folic Acid Inj 1 MG in Sodium Chloride 0.4... IV.SIG SCH (11:30)
--- NOTE | 2018-04-18 17:43 | P.PNWCN ---
Wound Care Nurse Consult Description: Received consult from Doctor Shima Brown for wound management of bilateral feet. Communicated with: J LUIS Brown CDU,Corey Hrenandez CDU Recommendation: 1.Please cleanse bilateral feet wounds with normal saline and pat dry. 2. Apply Silvadene ointment to wounds and cover with dry cover dressing, secured with rolled gauze and tape 3. Change dressing daily. Wound/Pressure Injury - Wound Dorsal L Foot Wound Assessment: Ongoing Wound Type: Burn Is This a Chronic Wound: No Requested from Provider a Wound Care Consult: Yes (Wound care saw patient today) Burn Type: Thermal Burn Length: 2.3 (cm) Width: 5 (cm) Depth: 0.1 (~0.1) Wound Bed Appearance: [place] Wound Bed Appearance: Wound bed presents with ~40% pink tissue and ~60% dark brown colored crust Surrounding Tissue Appearance: [place] Surrounding Tissue Temperature: Warm Drainage Amount: None Drainage Odor: No Odor Dressing Status: Open to Air Cleansing Solution: Saline R dorsal foot Wound Assessment: Ongoing Wound Type: Burn Is This a Chronic Wound: No Requested from Provider a Wound Care Consult: Yes (Wound care has seen patinet today) Burn Type: Thermal Burn Length: 2 (cm) Width: 2.5 (cm) Depth: 0.1 (~0.1cm) Wound Bed Appearance: [place] Wound Bed Appearance: Wound bed presents with ~20% pink tissue and ~80% dark brown colored crust Surrounding Tissue Temperature: Warm Drainage Amount: None Drainage Odor: No Odor Dressing Status: Open to Air Cleansing Solution: Saline - Additional Information Patient seen in CDU for evaluation of wound management to bilateral feet.Patient is up walking around naked in room, urine is noted on floor. Patient was assisted back to bed with the assistance of J LUIS AZAR, music writer tamiko Brown RN CDU. RN assisted patient with dressing and assisted patient back to bed. Patient states, "My wounds on my feet have been healing because I have been out of the sun". Patient reports wounds were caused by a sun burn. Patient is a poor historian and legally blind. Wounds are noted to the bilateral dorsal aspects of bilateral feet and are open to air. Wound measurements and descriptions noted above. Wounds non draining and have no foul odor.Wound margins of both wounds are irregular. Periwounds are pink. Wounds were cleansed with normal saline and left open to air. RN to apply Silvadene ointment to wounds and cover with dry dressing as recommended above.
[2018-04-19] MEDS: Heparin - SQ 10,000 UNITS/ML Vial SQ SCH ×2 (06:19→17:10)
--- NOTE | 2018-04-19 09:40 | P.CONPSY ---
Provisional Diagnosis Admission Date: April 17, 2018 17:19 History of Present Illness Primary Care Provider: Maryann Arellano MD Family Provider: Maryann Arellano MD Chief Complaint: Social admission [facility] - History History Provided By: Patient, He[employer] [place] / EMT - Medical History Medical History: Medical History (Last Reviewed 04/18/18 @ 08:49 by Ana Fuentes) Blind in both eyes - Surgical History Surgical History: Surgical History (Last Reviewed 04/18/18 @ 08:49 by Ana Fuentes) No history of previous surgery - Tobacco History Tobacco Use In Past 30 Days: Yes Smoking Status: Current every day smoker Tobacco Type: Cigarettes - Alcohol History How Often Do You Have a Drink Containing Alcohol: 4 or more times a week - Substance Use History Substance History: No History of Abuse - Travel History Recent Travel in the [place] Within the Last 8 Weeks: No Recent Travel Out of the Country Within the Last 8 Weeks: No - Immunization History Tetanus Immunization: Unsure Hx Influenza Vaccine This Season: No Medications and Allergies Active Medications: Active Medications Acetaminophen (Tylenol) 650 mg PO Q4H PRN PRN Reason: Temp > 100.4 Amlodipine Besylate (Norvasc) 5 mg PO DAILY TAVARES Enalaprilat (Vasotec Inj) 1.25 mg IV.PUSH Q6H PRN PRN Reason: SEE LABEL COMMENTS Last Admin: 04/19/18 06:35 Dose: 1.25 mg Flumazenil (Romazecon Inj) 0.2 mg IV.PUSH Q1M PRN PRN Reason: OVERSEDATION Haloperidol Lactate (Haldol Inj) 1 mg IV.PUSH Q15M PRN PRN Reason: for severe agitation Heparin Sodium (Porcine) (Heparin Inj) 5,000 units SQ Q12H [facility] Last Admin: 04/19/18 06:19 Dose: 5,000 units Multivitamins 10 ml/ Thiamine HCl 100 mg/ Folic Acid 1 mg/Sodium Chloride 511.2 mls @ 127.8 mls/hr IV.SIG DAILY TAVARES Last Infusion: 04/18/18 21:52 Dose: Infused Lorazepam (Ativan) 1 mg PO Q4H PRN PRN Reason: for CIWA 8-10 Lorazepam (Ativan) 2 mg PO Q2H PRN PRN Reason: for CIWA 11-14 Last Admin: 08/20/18 16:29 Dose: 2 mg Lorazepam (Ativan Inj) 2 mg IV.PUSH Q1H PRN PRN Reason: for CIWA 15-20 Lorazepam (Ativan Inj) 2 mg IV.PUSH Q15M PRN PRN Reason: for CIWA > 20 Lorazepam (Ativan Inj) 1 mg IV.PUSH Q4H PRN PRN Reason: for CIWA 8-10 Last Admin: 04/18/18 13:00 Dose: 1 mg Lorazepam (Ativan Inj) 2 mg IV.PUSH Q2H PRN PRN Reason: for CIWA 11-14 Last Admin: 04/17/18 21:46 Dose: 2 mg Ondansetron HCl (Zofran Inj) 4 mg IV.PUSH Q6H PRN PRN Reason: NAUSEA OR VOMITING Silver Sulfadiazine (Silvadene 1% Cream (50 Gm)) 1 applicatio TOPICAL DAILY TAVARES Last Admin: 04/18/18 18:28 Dose: 1 applicatio Allergies Allergy/AdvReac Type Severity Reaction Status Date / Time No Known Allergies Allergy Unknown Uncoded 11/10/17 09:47 Home Medications Medication Instructions Recorded Confirmed Type No Known Home Medications 04/17/18 04/17/18 History Exam Vital signs: Vital Signs 04/18/18 11:21 04/18/18 15:47 04/18/18 19:58 Temperature 97.6 F 97.9 F 98.0 F Pulse Rate 82 74 74 Respiratory Rate 16 16 18 Blood Pressure 155/82 H 183/97 H 174/94 H Pulse Oximetry 97 97 99 04/19/18 00:00 04/19/18 04:00 04/19/18 07:29 Temperature 98.2 F 98.0 F 97.6 F Pulse Rate 64 72 63 Respiratory Rate 15 16 18 Blood Pressure 179/96 H 186/105 H 182/80 H Pulse Oximetry 99 98 92 L Intake & Output 04/18/18 04/19/18 04/19/18 18:59 06:59 18:59 Intake Total 1240 / 1240 511.2 / 511.2 Output Total 1350 / 1350 Balance 1240 / 1240 -838.8 / -838.8 Intake: IV 0 / 0 511.2 / 511.2 MVI-12 Inj 10 ML Thiamine Inj 0 / 0 511.2 / 511.2 100 MG Folvite Inj 1 MG In 2 Normal Saline Inj 500 ML @ 127. 8 mls/hr IV.SIG DAILY TAVARES Rx#: [id number] Oral 1240 / 1240 Output: Urine 1350 / 1350 Other: # Voids 12 1 Date of Last Bowel Movement 04/17/18 04/19/18 04/19/18 # Bowel Movements 2 Mental Status Examination Appearance: Dirty, Disheveled, Malodorous Consciousness: Alert Orientation: x4 Motor Activity: Other (wheelchair bound ) Speech: Unremarkable Language: Adequate Fund of Knowledge: Adequate Attention and Concentration: Adequate Memory: Unremarkable Affect: Irritable Thought Process & Associations: Logical Thought Content: Appropriate Hallucination Type: None Delusion Type: None Suicidal Ideation: No Suicidal Plan: No Suicidal Intention: No Homicidal Ideation: No Homicidal Plan: No Homicidal Intention: No Insight: Adequate Judgment: Adequate Assessment and Plan - Plan Plan: Estimated LOS: [] days/ The patient was consulted to me to address SI and BA, but patient was seen by psychiatry, specifically by nurse practitioner Roselyn Oseguera on 04/17/20 and she did a very complete psyc eval, cleared the patient psychiatrically and lifted the BA. If you have any additional concern about this patient please contact me to my brea phone, [phone]. Justification for Continued Inpatient Stay: No admission is indicated, he was psych cleared on 04/17/2018
[2018-04-19] MEDS: amLODIPine 5 MG Tablet PO SCH (10:14)
[2018-04-19 11:00] LABS: Anion Gap 9 meq/L (5-15); Blood Urea Nitrogen 7 mg/dL (7-18); Calcium 8.1 mg/dL (8.5-10.1); Carbon Dioxide 26.9 meq/L (21.0-32.0); Chloride 87 meq/L (98-107); Glomerular Filtration Rate Greater Than 89 mL/min (>89); Glucose,Random 95 mg/dL (74-106); Potassium 3.7 meq/L (3.5-5.1)
[2018-04-19 11:05] LABS: Sodium 123 meq/L (136-145)
[2018-04-19] MEDS: Multivitamin/Minerals Therapeutic Tablet PO SCH (14:43)
--- NOTE | 2018-04-19 14:43 | P.PNPSY ---
Subjective Remarks: The patient is a 67-year-old man, homeless, unemployed, supported by [facility], who is blind and wheelchair dependent, no previous psychiatric history, no previous suicide attempts, he does have history of alcohol use disorder, who was placed under a Sher act by the [place] [employer]. Sher act stated," I have reason to believe that Mr. Mateus Welch has a mental illness as defined by section 394.455. [place] statue as is apparent that he lacks the mental and emotional processes that exercise control over his actions. I also believe that Mr. Welch is unable to perceive and understand reality and that it is impairment substantially interferes with his ability to meet ordinary demands of living. Mr. Welch has refused all voluntary examination after conscientious explanation of his need for examination. I believe that Mr. Welch is unable to determine for himself that examination is necessary." He was seen by Ms. Oseguera who lifted the Sher act and determined that the patient did not meet criteria for psychiatric admission. I saw the patient today for reevaluation and to determine if patient has decision-making capacity to participate in placement decision. On my evaluation the patient was calm, cooperative, but confused and disoriented. The patient reports that he feels okay, reports good mood, but he does not really know the reason he is in the hospital. Patient believes that the reason he is hospitalized is because of his blindness, patient does not remember what is the reason of his blindness, he is oriented in place, but disoriented in time, unable to provide or verbalize any information about his medical condition and consequences of his actions. He does deny suicidal enemas ideation, denies visual and auditory hallucinations. When I tried to talk with the patient about the importance of being placed in a residential or a subacute rehab, the patient has agreed with this determination stating that "is true that I am unable to take care of myself ". Mental Status Examination Appearance: Dirty, Disheveled, Malodorous Consciousness: Alert Orientation: x4 Motor Activity: Other (wheelchair bound ) Speech: Unremarkable Language: Adequate Fund of Knowledge: Adequate Attention and Concentration: Adequate Memory: Unremarkable Affect: Irritable Thought Process & Associations: Logical Thought Content: Appropriate Hallucination Type: None Delusion Type: None Suicidal Ideation: No Suicidal Plan: No Suicidal Intention: No Homicidal Ideation: No Homicidal Plan: No Homicidal Intention: No Insight: Adequate Judgment: Adequate Assessment and Plan - Plan Plan: Estimated LOS: [] days/ On the psychiatric evaluation today the patient is calm, superficially cooperative, he seems to be confused and just partially oriented in place, but disoriented in time. The patient is unable to verbalize the reason of his hospitalization and his need for medical care. Patient does not seem to understand and appreciate the importance of being compliant with medications and the impact in his life of not taking medication and refusing placement at this moment. For this reason, the patient does not have decision-making capacity to participate in discharge plan at this moment. I Strongly suggested to try to get healthcare by proxy to help the patient with decisions. No admission in psychiatry is indicated at this moment. Justification for Continued Inpatient Stay: No admission indicated
[2018-04-19] MEDS: Multivitamin Inj 10 ML, Thiamine Inj 100 MG, Folic Acid Inj 1 MG in Sodium Chloride 0.4... IV.SIG SCH (14:51)
[2018-04-19 16:59] LABS: Anion Gap 8 meq/L (5-15); Blood Urea Nitrogen 8 mg/dL (7-18); Calcium 8.1 mg/dL (8.5-10.1); Carbon Dioxide 28.6 meq/L (21.0-32.0); Chloride 86 meq/L (98-107); Glomerular Filtration Rate Greater Than 89 mL/min (>89); Glucose,Random 106 mg/dL (74-106); Potassium 3.4 meq/L (3.5-5.1)
[2018-04-19 17:00] LABS: Chloride,Urine Random 138 meq/L
[2018-04-19 17:19] LABS: Sodium 123 meq/L (136-145)
[2018-04-20] MEDS: Heparin - SQ 10,000 UNITS/ML Vial SQ SCH ×2 (04:50→17:53)
[2018-04-20] MEDS: LORazepam 1 MG Tablet PO PRN ×3 (07:44→17:15)
[2018-04-20] MEDS ORDERED: Sodium Chloride 1 GM Tablet PO SCH ×2 (10:00→18:00)
[2018-04-20 10:44] LABS: Anion Gap 12 meq/L (5-15); Blood Urea Nitrogen 6 mg/dL (7-18); Calcium 8.8 mg/dL (8.5-10.1); Carbon Dioxide 24.4 meq/L (21.0-32.0); Chloride 80 meq/L (98-107); Glomerular Filtration Rate Greater Than 89 mL/min (>89); Glucose,Random 109 mg/dL (74-106); Potassium 3.9 meq/L (3.5-5.1)
[2018-04-20 10:50] LABS: Sodium 116 meq/L (136-145)
[2018-04-20] MEDS: Multivitamin/Minerals Therapeutic Tablet PO SCH (12:33)
[2018-04-20] MEDS: amLODIPine 5 MG Tablet PO SCH (12:33)
--- NOTE | 2018-04-20 13:33 | P.PNFP ---
Subjective Interval history: Pt seen and evaluated with Dr. Delaney today. He is eating breakfast and has a hard time answering questions regarding PMH. He denies any past history of kidney problems, or heart problems. Pt denies any symptoms at this time. Pt states he's thirsty and wants a gatorade. <Steven Kailee Barkley V - 04/20/18 14:54> Results - Labs Result diagrams: 04/22/18 04:00 04/22/18 11:08 <Ruth Delaney M - 04/22/18 14:12> Abnormal lab results 04/21/18 04/21/18 04/21/18 Range/Units 13:04 14:04 19:47 RBC (4.50-5.90) mil/mm3 Hgb (13.0-17.0) gm/dL Hct (39.0-51.0) % Sodium 122 L* 123 L* 122 L* (136-145) meq/L Chloride (98-107) meq/L Creatinine (0.60-1.30) mg/dL Osmolality (275-295) mosm/kg Calcium (8.5-10.1) mg/dL Albumin (3.4-5.0) g/dL 04/22/18 04/22/18 04/22/18 Range/Units 00:11 04:00 04:00 RBC 3.88 L (4.50-5.90) mil/mm3 Hgb 12.4 L (13.0-17.0) gm/dL Hct 35.8 L (39.0-51.0) % Sodium 123 L* 124 L* (136-145) meq/L Chloride 89 L (98-107) meq/L Creatinine 0.55 L (0.60-1.30) mg/dL Osmolality (275-295) mosm/kg Calcium 8.2 L (8.5-10.1) mg/dL Albumin 3.1 L (3.4-5.0) g/dL 04/22/18 04/22/18 Range/Units 04:00 11:08 RBC (4.50-5.90) mil/mm3 Hgb (13.0-17.0) gm/dL Hct (39.0-51.0) % Sodium 123 L* (136-145) meq/L Chloride (98-107) meq/L Creatinine (0.60-1.30) mg/dL Osmolality 257 L (275-295) mosm/kg Calcium (8.5-10.1) mg/dL Albumin (3.4-5.0) g/dL Short CBC 04/22/18 Range/Units 04:00 WBC 4.0 (4.0-11.0) th/mm3 Hgb 12.4 L (13.0-17.0) gm/dL Hct 35.8 L (39.0-51.0) % Plt Count 240 (150-450) th/mm3 BMP 04/21/18 04/21/18 04/21/18 13:04 14:04 19:47 Sodium 122 L* 123 L* 122 L* Potassium Chloride Carbon Dioxide BUN Creatinine Calcium 04/22/18 04/22/18 04/22/18 00:11 04:00 11:08 Sodium 123 L* 124 L* 123 L* Potassium 3.9 Chloride 89 L Carbon Dioxide 24.7 BUN 15 Creatinine 0.55 L Calcium 8.2 L Liver Function 04/22/18 Range/Units 04:00 Total Bilirubin 0.3 (0.2-1.0) mg/dL AST 25 (15-37) U/L ALT 18 (12-78) U/L Alkaline Phosphatase 77 (45-117) U/L Albumin 3.1 L (3.4-5.0) g/dL <Ruth Delaney - 04/22/18 14:12> Abnormal lab results 04/19/18 04/20/18 Range/Units 15:33 09:37 Sodium 123 L* 116 L* (136-145) meq/L Potassium 3.4 L (3.5-5.1) meq/L Chloride 86 L 80 L (98-107) meq/L BUN 6 L (7-18) mg/dL Creatinine 0.52 L (0.60-1.30) mg/dL Random Glucose 109 H (74-106) mg/dL Calcium 8.1 L (8.5-10.1) mg/dL [facility] 04/19/18 04/20/18 15:33 09:37 Sodium 123 L* 116 L* Potassium 3.4 L 3.9 Chloride 86 L 80 L Carbon Dioxide 28.6 24.4 BUN 8 6 L Creatinine 0.62 0.52 L Calcium 8.1 L 8.8 <Kailee Mejia V - 04/20/18 13:32> Physical Exam Vital signs: Vital Signs 04/21/18 16:00 04/21/18 20:00 04/22/18 00:00 Temperature 98.5 F 98.1 F 98.0 F Pulse Rate 76 81 71 Respiratory Rate 20 17 20 Blood Pressure 139/64 134/62 141/72 H Pulse Oximetry 98 95 96 04/22/18 04:00 04/22/18 08:00 04/22/18 12:00 Temperature 98.2 F 98.0 F 98.0 F Pulse Rate 76 72 71 Respiratory Rate 18 17 17 Blood Pressure 148/83 H 144/77 H 142/67 H Pulse Oximetry 99 90 L 100 Intake & Output 04/21/18 04/22/18 04/22/18 18:59 06:59 18:59 Intake Total 720 / 720 600 / 600 Output Total 300 / 300 Balance 720 / 720 300 / 300 Weight 90.3 kg Intake: Oral 720 / 720 600 / 600 Output: Urine 300 / 300 Other: # Voids 2 2 Date of Last Bowel Movement 04/21/18 04/21/18 # Bowel Movements 1 # Incontinent Bowel Movements 1 <Ruth Delaney M - 04/22/18 14:12> Vital Signs 04/19/18 16:00 04/19/18 19:22 04/20/18 00:00 Temperature 98.5 F 98.4 F 97.5 F L Pulse Rate 79 81 81 Respiratory Rate 16 16 16 Blood Pressure 172/85 H 154/70 H 189/92 H Pulse Oximetry 98 98 98 04/20/18 04:00 04/20/18 08:00 04/20/18 12:00 Temperature 97.5 F L 97.5 F L 97.7 F Pulse Rate 82 101 H 90 Respiratory Rate 16 20 18 Blood Pressure 162/96 H 119/73 134/93 H Pulse Oximetry 99 98 99 Intake & Output 04/19/18 04/20/18 04/20/18 18:59 06:59 18:59 Intake Total 1220 / 1220 360 / 360 Output Total 1030 / 1030 Balance 1220 / 1220 -670 / -670 Intake: Oral 1220 / 1220 360 / 360 Output: Urine 1030 / 1030 Other: # Voids 11 # Incontinent Voids 2 Date of Last Bowel Movement 04/19/18 04/18/18 <Kailee Mejia V - 04/20/18 13:32> Narrative: GENERAL: Well-nourished, well-developed patient. Dishevel appearance , eating breakfast. NAD SKIN: Warm and dry. Sunburns on feet now covered with bandages. HEAD: Normocephalic and atraumatic. EYES: Pt is clinically blind. eyes closed on exam ENT: No nasal drainage noted. Mucous membranes pink. Airway patent. NECK: Supple, trachea midline. No JVD. CARDIOVASCULAR: Regular rate and rhythm without murmurs, gallops, or rubs. RESPIRATORY: Breath sounds equal bilaterally. No accessory muscle use. EXTREMITIES: No cyanosis or edema. Sunburns on bilateral dorsal feet NEUROLOGICAL: Awake and alert. Non cooperative. Answers to every question NO. <Kailee Mejia V - 04/20/18 14:54> Assessment and Plan - Assessment (1) Hyponatremia Code(s): E87.1 - Hypo-osmolality and hyponatremia Status: Acute (2) Hypokalemia Code(s): E87.6 - Hypokalemia Status: Resolved (3) Alcohol abuse Code(s): F10.10 - Alcohol abuse, uncomplicated Status: Acute (4) Impaired mobility and ADLs Code(s): Z74.09 - Other reduced mobility Status: Acute (5) Sunburn Code(s): L55.9 - Sunburn, unspecified Status: Acute (6) Blindness Code(s): H54.7 - Unspecified visual loss Status: Acute (7) Nutrition, metabolism, and development symptoms Code(s): R63.8 - Other symptoms and signs concerning food and fluid intake Status: Acute (8) DVT prophylaxis Status: Acute <Ruth Delaney M - 04/22/18 14:12> (1) Hyponatremia Code(s): E87.1 - Hypo-osmolality and hyponatremia Status: Acute Plan: Sodium level on admission was 127. Patient was continuously asking for water in the ED. 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 Attempted water restriction for 24 hrs with no improvement. Pt looks normovolemic on exam. Pt is currently asymptomatic. Sodium today critically low at 116 Urine Na 155 Pending labs: TSH, urine and blood osmolality NaCl pills 1 gr TID NS 1,000 ml IV at 100ml/hr Nephrology consulted, appreciate recommendations Na check q4 Hr Monitor closely for mental status changes and seizures. (2) Hypokalemia Code(s): E87.6 - Hypokalemia Status: Resolved Plan: Potassium at 3.3 upon admission. -Given KCl 20meq once in ED - K today at 3.9 - Continue to monitor daily (3) Alcohol abuse Code(s): F10.10 - Alcohol abuse, uncomplicated Status: Acute Plan: Her chart review, patient has a long history of alcohol abuse. Patient is unsure of his last drink. -Will initiate CIWA protocol -Escalate care as needed -Pt received rally packs for two days -> now switched to oral multivitamin - Pt scoring high on CIWA mainly due to agitation/ pacing. Not sure this is due to alcohol withdrawals vs normal psychiatry state. (4) Impaired mobility and ADLs Code(s): Z74.09 - Other reduced mobility Status: Acute Plan: Patient states that he is unable to walk using his cane anymore due to his broken ankle and therefore is now using a wheelchair. According to psychiatry' s note, patient is unable to and will not care for himself. Head CT on admission showed no acute findings in the brain -PT consulted -OT consulted -Case management consulted for possible placement/safe discharge - Pt evaluated by psychiatry yesterday and considered to have NO capacity to make decisions. (5) Sunburn Code(s): L55.9 - Sunburn, unspecified Status: Acute Plan: Blistering sunburn of dorsal aspect of bilateral feet. No systemic sx. -Consult wound care, appreciate recommendations 1.Please cleanse bilateral feet wounds with normal saline and pat dry. 2. Apply Silvadene ointment to wounds and cover with dry cover dressing, secured with rolled gauze and tape 3. Change dressing daily. (6) Blindness Code(s): H54.7 - Unspecified visual loss Status: Acute Plan: According to chart review from Ophthalmology in [place], patient has a history of bilateral mature cataracts and phacomorphic glaucoma. (7) Nutrition, metabolism, and development symptoms Code(s): R63.8 - Other symptoms and signs concerning food and fluid intake Status: Acute Plan: Fluids: tolerating PO/NS @ 100ml/hr Electrolytes: monitor and replete as needed, noted hyponatremia (see plan above) Nutrition: Regular diet GI: no prophylaxis indicates at this time (8) DVT prophylaxis Status: Acute Plan: DVT Prophylaxis: Early ambulation. Heparin 5000U subQ q12hr <Kailee Mejia V - 04/20/18 14:36> - Assessment and Plan 67-year-old male with a past medical history of alcohol abuse, bilateral cataracts, phacomorphic glaucoma presenting to the ED due to a Sher act. Sher act has been lifted by psychiatry. Patient is not a safe discharge due to blindness and wheelchair bound. During observation period, pt has develop severe hyponatremia requiring close monitoring and inpatient hospitalization. Please refer to plan above for details. Pt currently asymptomatic. Pt seen and evaluated with Dr. Delaney <Kailee Mejia V - 04/20/18 14:54> - Attending Attestation The exam, history, and the medical decision-making described in the above note were completed with the assistance of the resident physician. I reviewed and agree with the findings presented. I attest that I had a [id number] encounter with the patient on the same day, and personally performed and documented my assessment and findings in the medical record. Mr. Welch has had low sodiums for years. Doing of chart review of all the time she has been here to [facility], his low sodiums were remarked upon and attributed mainly to beer potomania. On this admission he originally had sodium which were very similar to prior admissions in the 125-130 range. He was dehydrated when he first came in clinically. He was in his wheelchair homeless sunburned and stated that he could not find water to drink as an outpatient. He is a very poor historian and was found wheeling himself into traffic or attempting to wheel himself into traffic. However he was given normal saline when he was first admitted because of concerns of hypovolemia. His sodium dropped from initially was 127 it buried and then went down to 123. It was stable at 123 for probably 12 hours. 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 The patient had no history to guide us and essentially denies anything or any history of cancer any history of taking any medications which could make his sodium low. We did not believe that he was drinking excessive water or anything else. It came as a big surprise that his sodium dropped from 123-116. He was not drinking much free water at all, he had basically one cup of Gatorade. He had been started on salt pills. His normal saline IV had been stopped. When evaluating his mental status he was not any different than he had been on admission or every other day. He pretty much lies in the bed in a position he does always ask for water or food. He has no capacity to make decisions per psychiatry. He has had no seizures at all. Urine osmolality was ordered as well as serum. We appreciate the help of nephrology he had 3% saline his sodium is coming up. It still completely unclear why his sodium dropped so much and whether his kidneys are just wasting almost all the salt that he takes in. <Ruth Delaney - 04/22/18 14:12>
[2018-04-20] MEDS ORDERED: Sod Chloride 0.9% Inj 1,000 ML IV.CONT SCH (14:00)
--- NOTE | 2018-04-20 17:04 | P.CONNP ---
History of Present Illness Consult date: 04/20/18 Primary Care Provider: Maryann Arellano MD Family Provider: Maryann Arellano MD Chief Complaint: Social admission History of Present Illness: 67-year-old male apparently with a history of alcohol abuse. Patient is a poor historian as he is currently confused. Apparently he was admitted to this institution on of this month with a sodium level of 127. Sodium level is actually 121 yesterday. Surprisingly no urine osmolality of serum osmolality was ordered until today and still pending. Sodium level worsened this a.m. to 116 and I was only consulted this afternoon. Patient said to be confused. Is demanding water but according to the nurse has not been drinking excessive amount of fluids. Review of Systems unobtainable due to mental condition PMFSH - History History Provided By: Patient, Match Up Person / EMT - Medical History Medical History: Medical History (Last Reviewed 04/18/18 @ 08:49 by Ana Fuentes) Blind in both eyes - Surgical History Surgical History: Surgical History (Last Reviewed 04/18/18 @ 08:49 by Ana Fuentes) No history of previous surgery - Tobacco History Tobacco Use In Past 30 Days: Yes Smoking Status: Current every day smoker Tobacco Type: Cigarettes - Alcohol History How Often Do You Have a Drink Containing Alcohol: 4 or more times a week - Substance Use History Substance History: No History of Abuse - Travel History Recent Travel in the [place] Within the Last 8 Weeks: No Recent Travel Out of the Country Within the Last 8 Weeks: No - Immunization History Tetanus Immunization: Unsure Hx Influenza Vaccine This Season: No Medications and Allergies Active Medications: Active Medications Acetaminophen (Tylenol) 650 mg PO Q4H PRN PRN Reason: Temp > 100.4 Amlodipine Besylate (Norvasc) 5 mg PO DAILY [facility] Last Admin: 04/20/18 12:33 Dose: 5 mg Clonidine HCl (Catapres) 0.1 mg PO Q6H PRN PRN Reason: SYS BP GREATER THAN 180 MMHG Enalaprilat (Vasotec Inj) 1.25 mg IV.PUSH Q6H PRN PRN Reason: SEE LABEL COMMENTS Last Admin: 04/19/18 06:35 Dose: 1.25 mg Flumazenil (Romazecon Inj) 0.2 mg IV.PUSH Q1M PRN PRN Reason: OVERSEDATION Haloperidol Lactate (Haldol Inj) 1 mg IV.PUSH Q15M PRN PRN Reason: for severe agitation Heparin Sodium (Porcine) (Heparin Inj) 5,000 units SQ Q12H [facility] Last Admin: 04/20/18 04:50 Dose: 5,000 units Sodium Chloride (Ns Inj) 1,000 mls @ 100 mls/hr IV.CONT .Q10H [facility] Last Admin: 04/20/18 15:45 Dose: Not Given Sodium Chloride (Sodium Chloride 3% Inj) 100 mls @ 25 mls/hr IV.SIG ONCE ONE Stop: 04/20/18 20:39 Lorazepam (Ativan) 1 mg PO Q4H PRN PRN Reason: for CIWA 8-10 Last Admin: 04/20/18 12:38 Dose: 1 mg Lorazepam (Ativan) 2 mg PO Q2H PRN PRN Reason: for CIWA 11-14 Last Admin: 04/18/18 16:29 Dose: 2 mg Lorazepam (Ativan Inj) 2 mg IV.PUSH Q1H PRN PRN Reason: for CIWA 15-20 Lorazepam (Ativan Inj) 2 mg IV.PUSH Q15M PRN PRN Reason: for CIWA > 20 Lorazepam (Ativan Inj) 1 mg IV.PUSH Q4H PRN PRN Reason: for CIWA 8-10 Last Admin: 04/18/18 13:00 Dose: 1 mg Lorazepam (Ativan Inj) 2 mg IV.PUSH Q2H PRN PRN Reason: for CIWA 11-14 Last Admin: 04/17/18 21:46 Dose: 2 mg Multivitamins/Minerals (Theragran-M) 1 tab PO DAILY [facility] Last Admin: 04/20/18 12:33 Dose: 1 tab Ondansetron HCl (Zofran Inj) 4 mg IV.PUSH Q6H PRN PRN Reason: NAUSEA OR VOMITING Silver Sulfadiazine (Silvadene 1% Cream (50 Gm)) 1 applicatio TOPICAL DAILY [facility] Last Admin: 04/20/18 12:33 Dose: 1 applicatio Sodium Chloride (Sodium Chloride) 1 gm PO TID [facility] Allergies Allergy/AdvReac Type Severity Reaction Status Date / Time No Known Allergies Allergy Unknown Uncoded 11/10/17 09:47 Home Medications Medication Instructions Recorded Confirmed Type No Known Home Medications 04/17/18 04/17/18 History Exam Vital signs: Vital Signs 04/19/18 19:22 04/20/18 00:00 04/20/18 04:00 Temperature 98.4 F 97.5 F L 97.5 F L Pulse Rate 81 81 82 Respiratory Rate 16 16 16 Blood Pressure 154/70 H 189/92 H 162/96 H Pulse Oximetry 98 98 99 04/20/18 08:00 04/20/18 12:00 Temperature 97.5 F L 97.7 F Pulse Rate 101 H 90 Respiratory Rate 20 18 Blood Pressure 119/73 134/93 H Pulse Oximetry 98 99 Intake & Output 04/19/18 04/20/18 04/20/18 18:59 06:59 18:59 Intake Total 1220 / 1220 360 / 360 Output Total 1030 / 1030 Balance 1220 / 1220 -670 / -670 Intake: Oral 1220 / 1220 360 / 360 Output: Urine 1030 / 1030 Other: # Voids 11 # Incontinent Voids 2 Date of Last Bowel Movement 04/19/18 04/18/18 Narrative: GENERAL: Somewhat unkempt appearing male sitting up in bed. Not responding appropriately to questions. SKIN: Warm and dry. HEAD: Normocephalic. EYES: No scleral icterus. No injection or drainage. NECK: Supple, trachea midline. No JVD or lymphadenopathy. CARDIOVASCULAR: Regular rate and rhythm without murmurs, gallops, or rubs. RESPIRATORY: Breath sounds equal bilaterally. No accessory muscle use. GASTROINTESTINAL: Abdomen soft, non-tender, nondistended. MUSCULOSKELETAL: No cyanosis, or edema. Results - Lab Results 04/18/18 07:40 04/20/18 09:37 Most recent lab results Calcium 8.8 mg/dL (8.5-10.1) 04/20/18 09:37 Assessment and Plan - Assessment (1) Hyponatremia Code(s): E87.1 - Hypo-osmolality and hyponatremia Status: Acute Plan: Patient presented to this institution with hyponatremia on April 17, 2018 which has been worsening. The hyponatremia likely multifactorial in origin related to poor nutritional intake resulting in the paucity of osmoles required for free water clearance. Uncertain if the patient may have an underlying SIADH. Urine osmolality was not ordered by residents until today and has still not apparently been collected. Patient not on oral fluid restriction. Patient received normal saline without urine osmolality being available. If the patient does have SIADH or other impairment of free water clearance normal saline can actually worsen hyponatremia. I have ordered a urine osmolality stat. The goal for sodium rate of correction will be about 4-6 mEq per liter per day. Check serum sodium levels every 4 hourly. If sodium correction more rapid than desired could utilize D5W 6 mL/kg body weight over 2 hours with desmopressin 2 mcg subcu every 6 hours to try to below the sodium level. In view of mental status changes I have ordered 3% saline 100 mL's. Continue sodium chloride pills for the present and hopefully this will be started today.
[2018-04-20 17:28] LABS: Bilirubin,Urine Negative (Negative); Clarity,Urine Hazy (Clear); Color,Urine Amber (Yellw/Straw); Glucose,Urine (UA) Negative (Negative); Leukocyte Esterase,Urine Negative (Negative); Mucus,Urine Few /lpf (Occasional); Nitrite,Urine Negative (Negative); Specific Gravity,Urine 1.019 (1.002-1.035); Squamous Epithelial Cell,Urine <1 /hpf (0-5)
[2018-04-20] MEDS ORDERED: Desmopressin Inj 4 MCG/ML Ampul IV.PUSH PRN ×2 (17:28→17:39)
[2018-04-20] MEDS: Sodium Chloride 1 GM Tablet PO SCH (22:16)
[2018-04-20 22:39] LABS: Anion Gap 9 meq/L (5-15); Blood Urea Nitrogen 14 mg/dL (7-18); Calcium 7.9 mg/dL (8.5-10.1); Carbon Dioxide 25.3 meq/L (21.0-32.0); Chloride 85 meq/L (98-107); Glomerular Filtration Rate Greater Than 89 mL/min (>89); Glucose,Random 99 mg/dL (74-106); Potassium 3.4 meq/L (3.5-5.1)
[2018-04-20 23:35] LABS: Sodium 119 meq/L (136-145)
[2018-04-21 06:21] LABS: Hematocrit 34.8 % (39.0-51.0); Hemoglobin 12.4 gm/dL (13.0-17.0); Mean Corpuscular HGB Conc 35.5 % (32.0-36.0); Mean Platelet Volume 7.4 fL (7.0-11.0); Platelet Count 226 th/mm3 (150-450); Red Blood Count 3.74 mil/mm3 (4.50-5.90); Red Cell Distribution Width 13.4 % (11.6-17.2)
[2018-04-21] MEDS: Heparin - SQ 10,000 UNITS/ML Vial SQ SCH ×2 (06:49→18:14)
[2018-04-21] MEDS: Sodium Chloride 1 GM Tablet PO SCH ×3 (06:49→22:11)
[2018-04-21 06:53] LABS: Alanine Aminotransferase 16 U/L (12-78); Albumin 3.2 g/dL (3.4-5.0); Alkaline Phosphatase 73 U/L (45-117); Anion Gap 10 meq/L (5-15); Aspartate Aminotransferase 20 U/L (15-37); Blood Urea Nitrogen 14 mg/dL (7-18); Calcium 8.4 mg/dL (8.5-10.1); Chloride 86 meq/L (98-107); Glomerular Filtration Rate Greater Than 89 mL/min (>89); Glucose,Random 90 mg/dL (74-106); Potassium 3.7 meq/L (3.5-5.1); Total Protein 6.7 g/dL (6.4-8.2)
[2018-04-21 06:57] LABS: Sodium 121 meq/L (136-145)
[2018-04-21] MEDS: Multivitamin/Minerals Therapeutic Tablet PO SCH (09:56)
[2018-04-21] MEDS: amLODIPine 5 MG Tablet PO SCH (09:56)
--- NOTE | 2018-04-21 10:41 | P.PNFP ---
Subjective Interval history: Pt evaluated and seen this morning. He was sleeping and it was noted to be some feces in the floor and in the bathroom. Pt was hard to awaken but alert once he did. He stated he was hungry, and thirsty and had a hard time to respond to other questions. To our knowledge this behavior is baseline for pt. He got admitted and transferered to a floor yesterday evening for continuous drop in Na despite salt pills (Na 117). Pt was placed on soft restrains overnight because he was fighting nurses trying to place IV medication ordered by Nephrology. <Kailee Mejia V - 04/21/18 10:40> Results - Labs Result diagrams: 04/22/18 04:00 04/22/18 11:08 <Ruth Delaney - 04/22/18 14:17> Abnormal lab results 04/21/18 04/21/18 04/21/18 Range/Units 13:04 14:04 19:47 RBC (4.50-5.90) mil/mm3 Hgb (13.0-17.0) gm/dL Hct (39.0-51.0) % Sodium 122 L* 123 L* 122 L* (136-145) meq/L Chloride (98-107) meq/L Creatinine (0.60-1.30) mg/dL Osmolality (275-295) mosm/kg Calcium (8.5-10.1) mg/dL Albumin (3.4-5.0) g/dL 04/22/18 04/22/18 04/22/18 Range/Units 00:11 04:00 04:00 RBC 3.88 L (4.50-5.90) mil/mm3 Hgb 12.4 L (13.0-17.0) gm/dL Hct 35.8 L (39.0-51.0) % Sodium 123 L* 124 L* (136-145) meq/L Chloride 89 L (98-107) meq/L Creatinine 0.55 L (0.60-1.30) mg/dL Osmolality (275-295) mosm/kg Calcium 8.2 L (8.5-10.1) mg/dL Albumin 3.1 L (3.4-5.0) g/dL 04/22/18 04/22/18 Range/Units 04:00 11:08 RBC (4.50-5.90) mil/mm3 Hgb (13.0-17.0) gm/dL Hct (39.0-51.0) % Sodium 123 L* (136-145) meq/L Chloride (98-107) meq/L Creatinine (0.60-1.30) mg/dL Osmolality 257 L (275-295) mosm/kg Calcium (8.5-10.1) mg/dL Albumin (3.4-5.0) g/dL Short CBC 04/22/18 Range/Units 04:00 WBC 4.0 (4.0-11.0) th/mm3 Hgb 12.4 L (13.0-17.0) gm/dL Hct 35.8 L (39.0-51.0) % Plt Count 240 (150-450) th/mm3 BMP 04/21/18 04/21/18 04/21/18 13:04 14:04 19:47 Sodium 122 L* 123 L* 122 L* Potassium Chloride Carbon Dioxide BUN Creatinine Calcium 04/22/18 04/22/18 04/22/18 00:11 04:00 11:08 Sodium 123 L* 124 L* 123 L* Potassium 3.9 Chloride 89 L Carbon Dioxide 24.7 BUN 15 Creatinine 0.55 L Calcium 8.2 L Liver Function 04/22/18 Range/Units 04:00 Total Bilirubin 0.3 (0.2-1.0) mg/dL AST 25 (15-37) U/L ALT 18 (12-78) U/L Alkaline Phosphatase 77 (45-117) U/L Albumin 3.1 L (3.4-5.0) g/dL <Ruth Delaney - 04/22/18 14:17> Abnormal lab results 04/20/18 04/20/18 04/20/18 Range/Units 09:37 15:34 15:34 RBC (4.50-5.90) mil/mm3 Hgb (13.0-17.0) gm/dL Hct (39.0-51.0) % Sodium 116 L* 117 L* (136-145) meq/L Potassium (3.5-5.1) meq/L Chloride 80 L (98-107) meq/L BUN 6 L (7-18) mg/dL Creatinine 0.52 L (0.60-1.30) mg/dL Random Glucose 109 H (74-106) mg/dL Osmolality 248 L (275-295) mosm/kg Calcium (8.5-10.1) mg/dL Albumin (3.4-5.0) g/dL Urine Clarity (Clear) Urine Mucus (Occasional) /lpf 04/20/18 04/20/18 04/21/18 Range/Units 17:00 21:54 05:47 RBC 3.74 L (4.50-5.90) mil/mm3 Hgb 12.4 L (13.0-17.0) gm/dL Hct 34.8 L (39.0-51.0) % Sodium 119 L* (136-145) meq/L Potassium 3.4 L (3.5-5.1) meq/L Chloride 85 L (98-107) meq/L BUN (7-18) mg/dL Creatinine 0.47 L (0.60-1.30) mg/dL Random Glucose (74-106) mg/dL Osmolality (275-295) mosm/kg Calcium 7.9 L D (8.5-10.1) mg/dL Albumin (3.4-5.0) g/dL Urine Clarity Hazy H (Clear) Urine Mucus Few H (Occasional) /lpf 04/21/18 Range/Units 05:47 RBC (4.50-5.90) mil/mm3 Hgb (13.0-17.0) gm/dL Hct (39.0-51.0) % Sodium 121 L* (136-145) meq/L Potassium (3.5-5.1) meq/L Chloride 86 L (98-107) meq/L BUN (7-18) mg/dL Creatinine 0.43 L (0.60-1.30) mg/dL Random Glucose (74-106) mg/dL Osmolality (275-295) mosm/kg Calcium 8.4 L (8.5-10.1) mg/dL Albumin 3.2 L (3.4-5.0) g/dL Urine Clarity (Clear) Urine Mucus (Occasional) /lpf Short CBC 04/21/18 Range/Units 05:47 WBC 4.0 (4.0-11.0) th/mm3 Hgb 12.4 L (13.0-17.0) gm/dL Hct 34.8 L (39.0-51.0) % Plt Count 226 (150-450) th/mm3 BMP 04/20/18 04/20/18 04/20/18 09:37 15:34 21:54 Sodium 116 L* 117 L* 119 L* Potassium 3.9 3.4 L Chloride 80 L 85 L Carbon Dioxide 24.4 25.3 BUN 6 L 14 Creatinine 0.52 L 0.47 L Calcium 8.8 7.9 L D 04/21/18 05:47 Sodium 121 L* Potassium 3.7 Chloride 86 L Carbon Dioxide 25.0 BUN 14 Creatinine 0.43 L Calcium 8.4 L Liver Function 04/21/18 Range/Units 05:47 Total Bilirubin 0.5 (0.2-1.0) mg/dL AST 20 (15-37) U/L ALT 16 (12-78) U/L Alkaline Phosphatase 73 (45-117) U/L Albumin 3.2 L (3.4-5.0) g/dL Urine 04/20/18 Range/Units 17:00 Urine Color [place]ida (Yellw/Straw) Urine Clarity Hazy H (Clear) Urine pH 6.0 (5.0-8.5) Ur Specific [place] 1.019 (1.002-1.035) Urine Protein Negative (Neg-Trace) mg/dL Urine Glucose (UA) Negative (Negative) mg/dL <Steven BarkleyKaileeCammy - 04/21/18 10:40> Physical Exam Vital signs: Vital Signs 04/21/18 16:00 04/21/18 20:00 04/22/18 00:00 Temperature 98.5 F 98.1 F 98.0 F Pulse Rate 76 81 71 Respiratory Rate 20 17 20 Blood Pressure 139/64 134/62 141/72 H Pulse Oximetry 98 95 96 04/22/18 04:00 04/22/18 08:00 04/22/18 12:00 Temperature 98.2 F 98.0 F 98.0 F Pulse Rate 76 72 71 Respiratory Rate 18 17 17 Blood Pressure 148/83 H 144/77 H 142/67 H Pulse Oximetry 99 90 L 100 Intake & Output 04/21/18 04/22/18 04/22/18 18:59 06:59 18:59 Intake Total 720 / 720 600 / 600 Output Total 300 / 300 Balance 720 / 720 300 / 300 Weight 90.3 kg Intake: Oral 720 / 720 600 / 600 Output: Urine 300 / 300 Other: # Voids 2 2 Date of Last Bowel Movement 04/21/18 04/21/18 # Bowel Movements 1 # Incontinent Bowel Movements 1 <Ruth Delaney M - 04/22/18 14:17> Vital Signs 04/20/18 12:00 04/20/18 16:00 04/20/18 19:46 Temperature 97.7 F 97.8 F Pulse Rate 90 97 H 83 Respiratory Rate 18 18 22 Blood Pressure 134/93 H 137/77 171/86 H Pulse Oximetry 99 98 97 04/20/18 19:54 04/20/18 20:00 04/21/18 00:00 Temperature 97.6 F 97.2 F L Pulse Rate 81 74 Respiratory Rate 17 17 Blood Pressure 178/87 H 162/82 H 139/73 Pulse Oximetry 96 98 04/21/18 02:29 04/21/18 04:00 04/21/18 08:00 Temperature 97.2 F L 97.8 F Pulse Rate 74 89 Respiratory Rate 18 17 20 Blood Pressure 160/83 H 157/65 H Pulse Oximetry 97 93 L Intake & Output 04/20/18 04/21/18 04/21/18 18:59 06:59 18:59 Intake Total 300 / 300 250 / 250 Output Total 550 / 550 Balance -250 / -250 250 / 250 Weight 91.3 kg Intake: IV 100 / 100 Sodium Chloride 3% Inj 100 ML @ 100 / 100 25 mls/hr IV.SIG ONCE ONE Rx#: [id number] Oral 300 / 300 150 / 150 Output: Urine 550 / 550 Other: Date of Last Bowel Movement 04/19/18 <Kailee Mejia V - 04/21/18 10:40> Narrative: GENERAL: Well-nourished, well-developed patient. Dishevel appearance, sleeping. NAD SKIN: Warm and dry. Sunburns on feet now covered with bandages. HEAD: Normocephalic and atraumatic. EYES: Pt is clinically blind. eyes closed on exam ENT: No nasal drainage noted. Mucous membranes pink. Airway patent. NECK: Supple, trachea midline. No JVD. CARDIOVASCULAR: Regular rate and rhythm without murmurs, gallops, or rubs. RESPIRATORY: Breath sounds equal bilaterally. No accessory muscle use. EXTREMITIES: No cyanosis or edema. Sunburns on bilateral dorsal feet, and left shoulder NEUROLOGICAL: Awake and alert. Non cooperative. <Kailee Mejia V - 04/21/18 10:40> Assessment and Plan - Assessment (1) Hyponatremia Code(s): E87.1 - Hypo-osmolality and hyponatremia Status: Acute (2) Hypokalemia Code(s): E87.6 - Hypokalemia Status: Resolved (3) Alcohol abuse Code(s): F10.10 - Alcohol abuse, uncomplicated Status: Acute (4) Impaired mobility and ADLs Code(s): Z74.09 - Other reduced mobility Status: Acute (5) Sunburn Code(s): L55.9 - Sunburn, unspecified Status: Acute (6) Blindness Code(s): H54.7 - Unspecified visual loss Status: Acute (7) Nutrition, metabolism, and development symptoms Code(s): R63.8 - Other symptoms and signs concerning food and fluid intake Status: Acute (8) DVT prophylaxis Status: Acute <ElainaReynaldoRuth M - 04/22/18 14:17> (1) Hyponatremia Code(s): E87.1 - Hypo-osmolality and hyponatremia Status: Acute Plan: Sodium level on admission was 127. Patient was continuously asking for water in the ED. 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 Attempted water restriction for 24 hrs with no improvement. Pt looks normovolemic on exam. Pt is currently asymptomatic. Sodium critically low at 116 yesterday. Improved this morning to 121 after receiving 100ml of 3% hypertonic saline per nephrology. Urine Na 155. urine osmolality pending. Pending labs: TSH wnl, blood osmolality 248 NaCl pills 1 gr TID D/C NS 1,000 ml IV at 100ml/hr Monitor closely for mental status changes and seizures. Nephrology consulted, appreciate recommendations - The goal for sodium rate of correction will be about 4-6 mEq per liter per day. - Check serum sodium levels every 4 hourly. - If sodium correction more rapid than desired could utilize D5W 6 mL/kg body weight over 2 hours with desmopressin 2 mcg subcu every 6 hours to try to below the sodium level. (2) Hypokalemia Code(s): E87.6 - Hypokalemia Status: Resolved Plan: Potassium at 3.3 upon admission. -Given KCl 20meq once in ED - K today at 3.7 - Continue to monitor daily (3) Alcohol abuse Code(s): F10.10 - Alcohol abuse, uncomplicated Status: Acute Plan: Her chart review, patient has a long history of alcohol abuse. Patient is unsure of his last drink. -Will initiate CIWA protocol -Escalate care as needed -Pt received rally packs for two days -> now switched to oral multivitamin - Pt scoring high on CIWA mainly due to agitation/ pacing. Not sure this is due to alcohol withdrawals vs normal psychiatry state. (4) Impaired mobility and ADLs Code(s): Z74.09 - Other reduced mobility Status: Acute Plan: Patient states that he is unable to walk using his cane anymore due to his broken ankle and therefore is now using a wheelchair. According to psychiatry' s note, patient is unable to and will not care for himself. Head CT on admission showed no acute findings in the brain -PT consulted -OT consulted -Case management consulted for possible placement/safe discharge - Pt evaluated by psychiatry and considered to have NO capacity to make decisions. (5) Sunburn Code(s): L55.9 - Sunburn, unspecified Status: Acute Plan: Blistering sunburn of dorsal aspect of bilateral feet. No systemic sx. -Consult wound care, appreciate recommendations 1.Please cleanse bilateral feet wounds with normal saline and pat dry. 2. Apply Silvadene ointment to wounds and cover with dry cover dressing, secured with rolled gauze and tape 3. Change dressing daily. (6) Blindness Code(s): H54.7 - Unspecified visual loss Status: Acute Plan: According to chart review from Ophthalmology in [place], patient has a history of bilateral mature cataracts and phacomorphic glaucoma. (7) Nutrition, metabolism, and development symptoms Code(s): R63.8 - Other symptoms and signs concerning food and fluid intake Status: Acute Plan: Fluids: PO intake Electrolytes: monitor and replete as needed, noted hyponatremia (see plan above) Nutrition: Regular diet GI: no prophylaxis indicates at this time (8) DVT prophylaxis Status: Acute Plan: DVT Prophylaxis: Early ambulation. 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 Sher act has been lifted by psychiatry. Patient is not a safe discharge due to blindness and wheelchair bound. During observation period, pt has develop severe hyponatremia requiring close monitoring and inpatient hospitalization. 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 Pt's sodium today slowly improving. Will continue to monitor every 4 hrs. <Kailee Mejia V - 04/21/18 10:40> - Attending Attestation The exam, history, and the medical decision-making described in the above note were completed with the assistance of the resident physician. I reviewed and agree with the findings presented. I attest that I had a [id number] encounter with the patient on the same day, and personally performed and documented my assessment and findings in the medical record. This poor gentleman is confused every day. Unfortunately he had a bowel movement on the floor in the emergency department and is continuing to have these problems up on the floor. When we asked the patient if he somehow did excessive free water drinking when he was in the hospital he denies it specifically. He is eating food better. He did not have nausea or any other problems. It is still unexplained why his sodium dropped so quickly as it had been relatively stable compared to sodiums that he has had over the past 2 years. He has had a head CT as well as a chest x-ray which are both normal. With a low sodium sometimes a cancer workup is initiated. However this patient denies anything suggestive of a cancer and he cannot consent to a lot of testing so we will not necessarily pursue anything as the yield is low if there is no obvious problem. <Rtuh Delaney - 04/22/18 14:17>
[2018-04-22 04:09] LABS: Hematocrit 35.8 % (39.0-51.0); Hemoglobin 12.4 gm/dL (13.0-17.0); Mean Corpuscular HGB Conc 34.6 % (32.0-36.0); Mean Corpuscular Hemoglobin 31.9 pg (27.0-34.0); Mean Corpuscular Volume 92.1 fL (80.0-100.0); Mean Platelet Volume 7.2 fL (7.0-11.0); Platelet Count 240 th/mm3 (150-450); Red Blood Count 3.88 mil/mm3 (4.50-5.90); Red Cell Distribution Width 13.5 % (11.6-17.2)
[2018-04-22] MEDS: Sodium Chloride 1 GM Tablet PO SCH ×4 (04:41→21:30)
[2018-04-22] MEDS: Heparin - SQ 10,000 UNITS/ML Vial SQ SCH ×3 (04:42→16:50)
[2018-04-22 04:43] LABS: Alanine Aminotransferase 18 U/L (12-78); Albumin 3.1 g/dL (3.4-5.0); Alkaline Phosphatase 77 U/L (45-117); Anion Gap 10 meq/L (5-15); Aspartate Aminotransferase 25 U/L (15-37); Blood Urea Nitrogen 15 mg/dL (7-18); Calcium 8.2 mg/dL (8.5-10.1); Carbon Dioxide 24.7 meq/L (21.0-32.0); Chloride 89 meq/L (98-107); Glomerular Filtration Rate Greater Than 89 mL/min (>89); Glucose,Random 88 mg/dL (74-106); Potassium 3.9 meq/L (3.5-5.1); Total Protein 6.7 g/dL (6.4-8.2)
[2018-04-22 04:49] LABS: Sodium 124 meq/L (136-145)
[2018-04-22] MEDS: Multivitamin/Minerals Therapeutic Tablet PO SCH (08:20)
[2018-04-22] MEDS: amLODIPine 5 MG Tablet PO SCH (08:20)
--- NOTE | 2018-04-22 13:09 | P.PNFP ---
Subjective Interval history: Patient seen and examined this morning. Pt states that he is doing well. He is hungry. No fever/chills, no feelings of fatigue, no weakness, no confusion, no seizure activity. No complaints. <Shima Brown G - 04/22/18 15:07> Results - Labs Result diagrams: 04/23/18 05:30 04/24/18 10:50 <Ruth Delaney - 04/24/18 13:01> Abnormal lab results 04/23/18 04/24/18 04/24/18 Range/Units 21:57 03:45 10:50 Sodium 117 L* 122 L* 125 L (136-145) meq/L Chloride 90 L (98-107) meq/L Estimated GFR 77 L (>89) mL/min BMP 04/23/18 04/24/18 04/24/18 21:57 03:45 10:50 Sodium 117 L* 122 L* 125 L Potassium 3.9 Chloride 90 L Carbon Dioxide 23.0 BUN 16 Creatinine 0.97 Calcium 9.6 D <Ruth Delaney - 04/24/18 13:01> Abnormal lab results 04/21/18 04/21/18 04/21/18 Range/Units 13:04 14:04 19:47 RBC (4.50-5.90) mil/mm3 Hgb (13.0-17.0) gm/dL Hct (39.0-51.0) % Sodium 122 L* 123 L* 122 L* (136-145) meq/L Chloride (98-107) meq/L Creatinine (0.60-1.30) mg/dL Osmolality (275-295) mosm/kg Calcium (8.5-10.1) mg/dL Albumin (3.4-5.0) g/dL 04/22/18 04/22/18 04/22/18 Range/Units 00:11 04:00 04:00 RBC 3.88 L (4.50-5.90) mil/mm3 Hgb 12.4 L (13.0-17.0) gm/dL Hct 35.8 L (39.0-51.0) % Sodium 123 L* 124 L* (136-145) meq/L Chloride 89 L (98-107) meq/L Creatinine 0.55 L (0.60-1.30) mg/dL Osmolality (275-295) mosm/kg Calcium 8.2 L (8.5-10.1) mg/dL Albumin 3.1 L (3.4-5.0) g/dL 04/22/18 04/22/18 Range/Units 04:00 11:08 RBC (4.50-5.90) mil/mm3 Hgb (13.0-17.0) gm/dL Hct (39.0-51.0) % Sodium 123 L* (136-145) meq/L Chloride (98-107) meq/L Creatinine (0.60-1.30) mg/dL Osmolality 257 L (275-295) mosm/kg Calcium (8.5-10.1) mg/dL Albumin (3.4-5.0) g/dL Short CBC 04/22/18 Range/Units 04:00 WBC 4.0 (4.0-11.0) th/mm3 Hgb 12.4 L (13.0-17.0) gm/dL Hct 35.8 L (39.0-51.0) % Plt Count 240 (150-450) th/mm3 BMP 04/21/18 04/21/18 04/21/18 13:04 14:04 19:47 Sodium 122 L* 123 L* 122 L* Potassium Chloride Carbon Dioxide BUN Creatinine Calcium 04/22/18 04/22/18 04/22/18 00:11 04:00 11:08 Sodium 123 L* 124 L* 123 L* Potassium 3.9 Chloride 89 L Carbon Dioxide 24.7 BUN 15 Creatinine 0.55 L Calcium 8.2 L Liver Function 04/22/18 Range/Units 04:00 Total Bilirubin 0.3 (0.2-1.0) mg/dL AST 25 (15-37) U/L ALT 18 (12-78) U/L Alkaline Phosphatase 77 (45-117) U/L Albumin 3.1 L (3.4-5.0) g/dL <Shima Brown G - 04/22/18 13:09> Physical Exam Vital signs: Vital Signs 04/23/18 16:00 04/23/18 20:00 04/24/18 00:00 Temperature 97.5 F L 97.9 F 97.9 F Pulse Rate 112 H 121 H 96 H Respiratory Rate 19 18 20 Blood Pressure 126/70 173/112 H 119/61 Pulse Oximetry 98 95 93 L 04/24/18 08:00 Temperature 97.2 F L Pulse Rate 84 Respiratory Rate 18 Blood Pressure 147/70 H Pulse Oximetry 95 Intake & Output 04/23/18 04/24/18 04/24/18 18:59 06:59 18:59 Intake Total 800 / 800 Balance 800 / 800 Weight 83.3 kg Intake: Oral 800 / 800 Other: # Voids 4 Date of Last Bowel Movement 04/21/18 04/23/18 <Ruth Delaney M - 04/24/18 13:01> Vital Signs 04/21/18 16:00 04/21/18 20:00 04/22/18 00:00 Temperature 98.5 F 98.1 F 98.0 F Pulse Rate 76 81 71 Respiratory Rate 20 17 20 Blood Pressure 139/64 134/62 141/72 H Pulse Oximetry 98 95 96 04/22/18 04:00 04/22/18 08:00 04/22/18 12:00 Temperature 98.2 F 98.0 F 98.0 F Pulse Rate 76 72 71 Respiratory Rate 18 17 17 Blood Pressure 148/83 H 144/77 H 142/67 H Pulse Oximetry 99 90 L 100 Intake & Output 04/21/18 04/22/18 04/22/18 18:59 06:59 18:59 Intake Total 720 / 720 600 / 600 Output Total 300 / 300 Balance 720 / 720 300 / 300 Weight 90.3 kg Intake: Oral 720 / 720 600 / 600 Output: Urine 300 / 300 Other: # Voids 2 2 Date of Last Bowel Movement 04/21/18 04/21/18 # Bowel Movements 1 # Incontinent Bowel Movements 1 <Shima Brown - 04/22/18 13:09> Narrative: GENERAL: Well-nourished, well-developed patient. Dishevel appearance, sleeping. NAD SKIN: Warm and dry. Sunburns on feet now covered with bandages. HEAD: Normocephalic and atraumatic. ENT: No nasal drainage noted. Mucous membranes pink. Airway patent. NECK: Supple, trachea midline. No JVD. CARDIOVASCULAR: Regular rate and rhythm without murmurs, gallops, or rubs. RESPIRATORY: Breath sounds equal bilaterally. No accessory muscle use. EXTREMITIES: No cyanosis or edema. Sunburns on bilateral dorsal feet, and left shoulder NEUROLOGICAL: Awake and alert. Non cooperative. <StephanieShima G - 04/22/18 15:07> Assessment and Plan - Assessment (1) Hyponatremia Code(s): E87.1 - Hypo-osmolality and hyponatremia Status: Acute (2) Dementia Code(s): F03.90 - Unspecified dementia without behavioral disturbance Status: Acute (3) Hypokalemia Code(s): E87.6 - Hypokalemia Status: Resolved (4) Alcohol abuse Code(s): F10.10 - Alcohol abuse, uncomplicated Status: Chronic (5) Impaired mobility and ADLs Code(s): Z74.09 - Other reduced mobility Status: Acute (6) Sunburn Code(s): L55.9 - Sunburn, unspecified Status: Acute (7) Blindness Code(s): H54.7 - Unspecified visual loss Status: Chronic (8) Nutrition, metabolism, and development symptoms Code(s): R63.8 - Other symptoms and signs concerning food and fluid intake Status: Acute (9) DVT prophylaxis Status: Acute <Ruth Delaney - 04/24/18 13:01> (1) Hyponatremia Code(s): E87.1 - Hypo-osmolality and hyponatremia Status: Acute Plan: Sodium level on admission was 127. Patient was continuously asking for water in the ED. 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 Attempted water restriction for 24 hrs with no improvement. Pt looks normovolemic on exam. Pt is currently asymptomatic. Sodium critically low at 116 on 04/20. Received 100ml of 3% hypertonic saline per nephrology. Has improved. Urine Na 155. urine osmolality pending. Pending labs: TSH wnl, blood osmolality 248 NaCl pills 1 gr TID D/C NS 1,000 ml IV at 100ml/hr Monitor closely for mental status changes and seizures. Nephrology consulted, appreciate recommendations - The goal for sodium rate of correction will be about 4-6 mEq per liter per day. - Check serum sodium levels every 4 hourly. - If sodium correction more rapid than desired could utilize D5W 6 mL/kg body weight over 2 hours with desmopressin 2 mcg subcu every 6 hours to try to below the sodium level. (2) Dementia (3) Hypokalemia Code(s): E87.6 - Hypokalemia Status: Resolved Plan: Potassium at 3.3 upon admission. Has now normalized -Given KCl 20meq once in ED - Continue to monitor daily (4) Alcohol abuse Code(s): F10.10 - Alcohol abuse, uncomplicated Status: Chronic Plan: Her chart review, patient has a long history of alcohol abuse. Patient is unsure of his last drink. -Will initiate CIWA protocol -Escalate care as needed -Pt received rally packs for two days -> now switched to oral multivitamin - Pt scoring high on CIWA mainly due to agitation/ pacing. Not sure this is due to alcohol withdrawals vs normal psychiatric state. (5) Impaired mobility and ADLs Code(s): Z74.09 - Other reduced mobility Status: Acute Plan: Patient states that he is unable to walk using his cane anymore due to his broken ankle and therefore is now using a wheelchair. According to psychiatry' s note, patient is unable to and will not care for himself. Head CT on admission showed no acute findings in the brain -PT consulted -OT consulted -Case management consulted for possible placement/safe discharge - Pt evaluated by psychiatry and considered to have NO capacity to make decisions. (6) Sunburn Code(s): L55.9 - Sunburn, unspecified Status: Acute Plan: Blistering sunburn of dorsal aspect of bilateral feet. No systemic sx. -Consult wound care, appreciate recommendations 1.Please cleanse bilateral feet wounds with normal saline and pat dry. 2. Apply Silvadene ointment to wounds and cover with dry cover dressing, secured with rolled gauze and tape 3. Change dressing daily. (7) Blindness Code(s): H54.7 - Unspecified visual loss Status: Chronic Plan: According to chart review from Ophthalmology in [place], patient has a history of bilateral mature cataracts and phacomorphic glaucoma. (8) Nutrition, metabolism, and development symptoms Code(s): R63.8 - Other symptoms and signs concerning food and fluid intake Status: Acute Plan: Fluids: PO intake Electrolytes: monitor and replete as needed, noted hyponatremia (see plan above) Nutrition: Regular diet GI: no prophylaxis indicates at this time (9) DVT prophylaxis Status: Acute Plan: DVT Prophylaxis: Early ambulation. 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 Sher act has been lifted by psychiatry. Patient is not a safe discharge due to blindness and wheelchair bound. During observation period, pt has develop severe hyponatremia requiring close monitoring and inpatient hospitalization. Pt developed change of mental status noted by cyber security systems engineer and Na correction was with 100ml 3% hypertonic saline, and continue NaCl pills. Sodium slowly improving. <StephanieShima G 04/22/18 15:11> Discussed Condition With: Dr. Delaney <Adalberto Browngillian Alexander 04/22/18 15:07> Discharge Planning: pending safe discharge <StephanieShima G 04/22/18 15:11> - Attending Attestation The exam, history, and the medical decision-making described in the above note were completed with the assistance of the resident physician. I reviewed and agree with the findings presented. I attest that I had a [id number] encounter with the patient on the same day, and personally performed and documented my assessment and findings in the medical record. It is incredibly difficult to keep his sodium at a good level. First of all he has lung cancer and SIADH from that. He also has had hyponatremia for several years probably with his beer drinking contributing to that. Mr. Welch has some times where he is more talkative than others and he told his resident today that he knew he had lung cancer and he chose to ignore it in the past. He does have lung cancer on a CT scan however the routeman saw him and Mr. Holden cannot consent to any sort of procedure including bronchoscopy and based on him not wanting to do anything in the past he probably would not want to do anything at this point. The question is first of all trying to keep his sodium under good control because he tries to get as much water as he can and even though he has been fluid restricted and his nurse knows that he is fluid restricted and she is only giving him 800 cc a day he may be getting himself water whenever he can even though he is blind he can walk around the room and may be sticking his head under the faucet for all we know even though he does not admit to this. For sure when he leaves the hospital since he thirsty all the time he is going to end up getting a lot more water over at the SNF that he is going to go to. Right now he is on salt pills 3 g per day he did receive Lasix yesterday a one-time dose of 40 so in order to try to get him on some sort of p.o. regimen we may have to increase his Lasix to 40 twice daily p.o. and increase his salt pills to a much higher doses may be 5 g a day. We could see if hospice may end up getting involved because this is a cancer patient with severe problems related to that who is not going to be able to get any sort of chemo surgery or radiation since he does not have a capacity to agree to it. It is hopeful that palliative will be able to help find a decision maker or someone to help Mr. Wlech. <Ruth Delaney M - 04/24/18 13:01> <Ruth Delaney M - Last Filed: 04/24/18 13:01> (2) Dementia Qualifiers: Dementia behavioral disturbance: with behavioral disturbance <Ruth Delaney M - Last Filed: 04/24/18 13:01> (2) Dementia Qualifiers: Dementia behavioral disturbance: with behavioral disturbance
--- NOTE | 2018-04-22 15:17 | P.PNNP ---
Subjective Interval history: 67-year-old male apparently with a history of alcohol abuse. Patient is a poor historian as he is currently confused. Apparently he was admitted to this institution on of this month with a sodium level of 127. Sodium level is actually 121 yesterday. Surprisingly no urine osmolality of serum osmolality was ordered until today and still pending. Sodium level worsened this a.m. to 116 and I was only consulted this afternoon. Patient said to be confused. Is demanding water but according to the nurse has not been drinking excessive amount of fluids. 04/22/18 Pt laying in bed. Asking for food and coffee. Despite being on fluid restrictions, I am concerned that he is intaking more than allotted 800mL. Denies any NVD. <Archana Baltazar - Last Filed: 04/22/18 16:28> Physical Exam Vital signs: Vital Signs 04/21/18 16:00 04/21/18 20:00 04/22/18 00:00 Temperature 98.5 F 98.1 F 98.0 F Pulse Rate 76 81 71 Respiratory Rate 20 17 20 Blood Pressure 139/64 134/62 141/72 H Pulse Oximetry 98 95 96 04/22/18 04:00 04/22/18 08:00 04/22/18 12:00 Temperature 98.2 F 98.0 F 98.0 F Pulse Rate 76 72 71 Respiratory Rate 18 17 17 Blood Pressure 148/83 H 144/77 H 142/67 H Pulse Oximetry 99 90 L 100 Intake & Output 04/21/18 04/22/18 04/22/18 18:59 06:59 18:59 Intake Total 720 / 720 600 / 600 Output Total 300 / 300 Balance 720 / 720 300 / 300 Weight 90.3 kg Intake: Oral 720 / 720 600 / 600 Output: Urine 300 / 300 Other: # Voids 2 2 Date of Last Bowel Movement 04/21/18 04/21/18 # Bowel Movements 1 # Incontinent Bowel Movements 1 - Constitutional no acute distress, thin, disheveled - Routine Respiratory Exam Present: CTA bilaterally - Routine Cardiovascular Exam Present: RRR, S1, S2 - Routine Abdominal Exam Present: soft - Routine Neurological Exam Present: alert <Archana Baltazar - Last Filed: 04/22/18 16:28> Vital signs: Vital Signs 04/21/18 20:00 04/22/18 00:00 04/22/18 04:00 Temperature 98.1 F 98.0 F 98.2 F Pulse Rate 81 71 76 Respiratory Rate 17 20 18 Blood Pressure 134/62 141/72 H 148/83 H Pulse Oximetry 95 96 99 04/22/18 08:00 04/22/18 12:00 04/22/18 16:00 Temperature 98.0 F 98.0 F 97.6 F Pulse Rate 72 71 84 Respiratory Rate 17 17 17 Blood Pressure 144/77 H 142/67 H 146/78 H Pulse Oximetry 90 L 100 97 Intake & Output 04/21/18 04/22/18 04/22/18 18:59 06:59 18:59 Intake Total 720 / 720 600 / 600 Output Total 300 / 300 Balance 720 / 720 300 / 300 Weight 90.3 kg Intake: Oral 720 / 720 600 / 600 Output: Urine 300 / 300 Other: # Voids 2 2 Date of Last Bowel Movement 04/21/18 04/21/18 # Bowel Movements 1 # Incontinent Bowel Movements 1 <Ruma Argueta - Last Filed: 04/22/18 17:03> Assessment and Plan - Assessment (1) Hyponatremia Code(s): E87.1 - Hypo-osmolality and hyponatremia Status: Acute Plan: Hyponatremia likely multifactorial in origin related to poor nutritional intake resulting in the paucity of osmoles required for free water clearance. Uncertain if the patient may have an underlying SIADH. Urine osmolality has been ordered twice and no results have been reported as of yet. I believe the patient is probably drinking more than what he is being allotted. Should continue on 800mL fluid restriction. Encourage dietary protein intake. To continue on po NaCl tablets. Will order CT of the chest to assess for any pulmonary pathology causing SIADH. Reviewed CT chest done in 2017 that was negative. <Archana Baltazar - Last Filed: 04/22/18 16:28> - Assessment (1) Hyponatremia Code(s): E87.1 - Hypo-osmolality and hyponatremia Status: Acute - Attending Attestation The exam, history, and the medical decision-making described in the above note were completed with the assistance of the PAJyoti. I reviewed and agree with the findings presented. I attest that I had a [id number] encounter with the patient on the same day, and personally performed and documented my assessment and findings in the medical record. Hyponatremia has improved but still below desired range despite salt pills. Suspect noncompliance with fluid restriction. Reiterated importance of same. At this point given persisting hyponatremia will proceed with noncontrast CT of the chest to screen for possible pulmonary pathology for SIADH. <Ruma Argueta - Last Filed: 04/22/18 17:03>
[2018-04-22] MEDS: Haloperidol Inj 5 MG/ML Ampul IV.PUSH PRN ×2 (16:42→20:55)
[2018-04-22] MEDS: LORazepam 1 MG Tablet PO PRN (17:01)
[2018-04-23] MEDS: LORazepam 1 MG Tablet PO PRN (02:10)
[2018-04-23] MEDS: Heparin - SQ 10,000 UNITS/ML Vial SQ SCH ×2 (05:42→18:06)
[2018-04-23] MEDS: Haloperidol Inj 5 MG/ML Ampul IV.PUSH PRN (05:42)
[2018-04-23] MEDS: Sodium Chloride 1 GM Tablet PO SCH ×3 (05:42→21:43)
[2018-04-23 07:22] LABS: Baso % (Auto) 0.6 % (0.0-2.0); Eos % (Auto) 0.5 % (0.0-4.0); Hematocrit 37.5 % (39.0-51.0); Hemoglobin 13.3 gm/dL (13.0-17.0); Lymph # (Auto) 0.9 th/mm3 (1.0-4.8); Lymph % (Auto) 15.9 % (9.0-44.0); Mean Corpuscular HGB Conc 35.5 % (32.0-36.0); Mean Corpuscular Hemoglobin 32.3 pg (27.0-34.0); Mean Platelet Volume 7.8 fL (7.0-11.0); Mono # (Auto) 0.8 th/mm3 (0.0-0.9); Mono % (Auto) 13.3 % (0.0-8.0); Neut % (Auto) 69.7 % (16.0-70.0); Platelet Count 288 th/mm3 (150-450); Red Blood Count 4.12 mil/mm3 (4.50-5.90); Red Cell Distribution Width 13.7 % (11.6-17.2); White Blood Count 5.7 th/mm3 (4.0-11.0)
[2018-04-23 07:56] LABS: Albumin 3.7 g/dL (3.4-5.0); Anion Gap 10 meq/L (5-15); Blood Urea Nitrogen 7 mg/dL (7-18); Calcium 8.5 mg/dL (8.5-10.1); Carbon Dioxide 23.8 meq/L (21.0-32.0); Chloride 83 meq/L (98-107); Glomerular Filtration Rate Greater Than 89 mL/min (>89); Glucose,Random 89 mg/dL (74-106); Phosphorus 2.9 mg/dL (2.5-4.9); Potassium 3.8 meq/L (3.5-5.1)
[2018-04-23] MEDS: amLODIPine 5 MG Tablet PO SCH (08:03)
[2018-04-23] MEDS: Multivitamin/Minerals Therapeutic Tablet PO SCH (08:03)
[2018-04-23 08:04] LABS: Sodium 117 meq/L (136-145)
--- NOTE | 2018-04-23 09:53 | P.PNFP ---
Subjective Interval history: Mr Welch is doing ok this morning. He was very confused and agitated yesterday evening and night. He was tangling himself with the telemetry cables, and talking to the white board. He's mental status appears to have a pattern that declines in the evenings, but is better in the mornings. This morning he complaint of some abdominal pain, he states he was starving and wanted to eat. We reinstated with his nurse that is to be fluid restricted to 800ml day total and urine osmolality must be collected. PT denies any chest pain or shortness of breath, he denies fevers or chills, he is having lose stools per nurse, C. diff studies are negative. <Kailee Mejia V - 04/23/18 12:41> Results - Labs Result diagrams: 04/23/18 05:30 04/24/18 10:50 <Ruth Delaney M - 04/24/18 13:03> Abnormal lab results 04/23/18 04/24/18 04/24/18 Range/Units 21:57 03:45 10:50 Sodium 117 L* 122 L* 125 L (136-145) meq/L Chloride 90 L (98-107) meq/L Estimated GFR 77 L (>89) mL/min BMP 04/23/18 04/24/18 04/24/18 21:57 03:45 10:50 Sodium 117 L* 122 L* 125 L Potassium 3.9 Chloride 90 L Carbon Dioxide 23.0 BUN 16 Creatinine 0.97 Calcium 9.6 D <Ruth Delaney M - 04/24/18 13:03> Abnormal lab results 04/22/18 04/22/18 04/23/18 Range/Units 11:08 22:50 05:30 RBC (4.50-5.90) mil/mm3 Hct (39.0-51.0) % Woodruff % (Auto) (0.0-8.0) % Lymph # (Auto) (1.0-4.8) th/mm3 Sodium 123 L* 120 L* 117 L* (136-145) meq/L Chloride 83 L (98-107) meq/L Creatinine 0.47 L (0.60-1.30) mg/dL 04/23/18 Range/Units 05:30 RBC 4.12 L (4.50-5.90) mil/mm3 Hct 37.5 L (39.0-51.0) % Woodruff % (Auto) 13.3 H (0.0-8.0) % Lymph # (Auto) 0.9 L (1.0-4.8) th/mm3 Sodium (136-145) meq/L Chloride (98-107) meq/L Creatinine (0.60-1.30) mg/dL Short CBC 04/23/18 Range/Units 05:30 WBC 5.7 (4.0-11.0) th/mm3 Hgb 13.3 (13.0-17.0) gm/dL Hct 37.5 L (39.0-51.0) % Plt Count 288 (150-450) th/mm3 BMP 04/22/18 04/22/18 04/23/18 11:08 22:50 05:30 Sodium 123 L* 120 L* 117 L* Potassium 3.8 Chloride 83 L Carbon Dioxide 23.8 BUN 7 Creatinine 0.47 L Calcium 8.5 Liver Function 04/23/18 Range/Units 05:30 Albumin 3.7 D (3.4-5.0) g/dL <Steven BarkleyKailee Winston - 04/23/18 09:53> Physical Exam Vital signs: Vital Signs 04/23/18 16:00 04/23/18 20:00 04/24/18 00:00 Temperature 97.5 F L 97.9 F 97.9 F Pulse Rate 112 H 121 H 96 H Respiratory Rate 19 18 20 Blood Pressure 126/70 173/112 H 119/61 Pulse Oximetry 98 95 93 L 04/24/18 08:00 Temperature 97.2 F L Pulse Rate 84 Respiratory Rate 18 Blood Pressure 147/70 H Pulse Oximetry 95 Intake & Output 04/23/18 04/24/18 04/24/18 18:59 06:59 18:59 Intake Total 800 / 800 Balance 800 / 800 Weight 83.3 kg Intake: Oral 800 / 800 Other: # Voids 4 Date of Last Bowel Movement 04/21/18 04/23/18 <Ruth Delaney - 04/24/18 13:03> Vital Signs 04/22/18 12:00 04/22/18 16:00 04/22/18 20:00 Temperature 98.0 F 97.6 F 97.7 F Pulse Rate 71 84 74 Respiratory Rate 17 17 20 Blood Pressure 142/67 H 146/78 H 152/92 H Pulse Oximetry 100 97 97 04/23/18 00:00 04/23/18 04:00 04/23/18 08:00 Temperature 97.3 F L 98.3 F 97.4 F L Pulse Rate 83 75 95 H Respiratory Rate 20 20 20 Blood Pressure 158/79 H 173/81 H 144/77 H Pulse Oximetry 95 94 L 94 L Intake & Output 04/22/18 04/23/18 04/23/18 18:59 06:59 18:59 Intake Total 360 / 360 3000 / 3000 Output Total 1500 / 1500 Balance 360 / 360 1500 / 1500 Intake: Oral 360 / 360 3000 / 3000 Output: Urine 1500 / 1500 Other: # Voids 7 7 Date of Last Bowel Movement 04/21/18 # Bowel Movements 4 <Kailee Mejia V - 04/23/18 09:53> Narrative: GENERAL: Well-nourished, well-developed patient. Dishevel appearance , sitting on his wheelchair. NAD SKIN: Warm and dry. Sunburns on feet now covered with bandages. HEAD: Normocephalic and atraumatic. ENT: No nasal drainage noted. Airway patent. NECK: Supple, trachea midline. No enlarged thyroid palpated, no nodules. CARDIOVASCULAR: Regular rate and rhythm without murmurs, gallops, or rubs. RESPIRATORY: Breath sounds equal bilaterally. No accessory muscle use. ABDOMINAL: Non tender to palpation, soft, no masses, no guarding. EXTREMITIES: No cyanosis or edema. Sunburns on bilateral dorsal feet, and left shoulder NEUROLOGICAL: Awake, not oriented, answers some questions. <Kailee Mejia V - 04/23/18 12:41> Assessment and Plan - Assessment (1) Hyponatremia Code(s): E87.1 - Hypo-osmolality and hyponatremia Status: Acute (2) Dementia Code(s): F03.90 - Unspecified dementia without behavioral disturbance Status: Acute (3) Hypokalemia Code(s): E87.6 - Hypokalemia Status: Resolved (4) Alcohol abuse Code(s): F10.10 - Alcohol abuse, uncomplicated Status: Chronic (5) Impaired mobility and ADLs Code(s): Z74.09 - Other reduced mobility Status: Acute (6) Sunburn Code(s): L55.9 - Sunburn, unspecified Status: Acute (7) Blindness Code(s): H54.7 - Unspecified visual loss Status: Chronic (8) Nutrition, metabolism, and development symptoms Code(s): R63.8 - Other symptoms and signs concerning food and fluid intake Status: Acute (9) DVT prophylaxis Status: Acute <Ruth Delaney - 04/24/18 13:03> (1) Hyponatremia Code(s): E87.1 - Hypo-osmolality and hyponatremia Status: Acute Plan: Sodium level on admission was 127. Patient was continuously asking for water in the ED. May be due to psychogenic polydipsia versus SIADH versus beer potomania.Pt sodium continues to be low despite regular diet, and fluid restriction. We suspect, his water restriction has not been strict enough, and patient is drinking more than allowed. We reinstated today that he MUST be fluid restricted to 800ml/ day. Sodium critically low at 116 on 04/20. Received 100ml of 3% hypertonic saline per nephrology. Has improved. Sodium this mornin Urine Na 155. urine osmolality 551 Pending labs: TSH wnl, blood osmolality 248 NaCl pills 1 gr TID, Pending cortisol level. Although unlikely given his elevated BP, adrenal insufficiency can cause hyponatremia. Added CT abdomen and pelvis to Nephrology CT chest due to concern for malignancy. Monitor closely for mental status changes and seizures. Will give one dose of Lasix 40mg PO after urine osmolality is collected with intend to get rid of free water. Nephrology consulted, appreciate recommendations - The goal for sodium rate of correction will be about 4-6 mEq per liter per day. - Check serum sodium levels every 4 hourly. - If sodium correction more rapid than desired could utilize D5W 6 mL/kg body weight over 2 hours with desmopressin 2 mcg subcu every 6 hours to try to below the sodium level. 04/22: given persisting hyponatremia will proceed with noncontrast CT of the chest to screen for possible pulmonary pathology for SIADH. - Waiting report (2) Dementia Code(s): F03.90 - Unspecified dementia without behavioral disturbance Status: Acute Plan: Pt has been admitted to this hospital for almost one week. It is very difficult to asses a baseline mental status for him. He is confused at times, and more alert at others. He cannot provide an adequate health history. Some evenings, he is combative, confused, and agitated. At this point we feel the need to attempt to find a cause of his dementia. DDx include: Alzheimer, infection (HIV , Syphillis), B12 deficiency and/or folate. -Psychiatry consult 04/19 determined patient does not have capacity. - TSH wnl - Pending HIV, RPR, B12 and folate level. (3) Hypokalemia Code(s): E87.6 - Hypokalemia Status: Resolved Plan: Potassium at 3.3 upon admission. Stable since ED correction -Given KCl 20meq once in ED - Continue to monitor daily (4) Alcohol abuse Code(s): F10.10 - Alcohol abuse, uncomplicated Status: Chronic Plan: Her chart review, patient has a long history of alcohol abuse. Patient is unsure of his last drink. -Will initiate CIWA protocol -Escalate care as needed -Pt received rally packs for two days -> now switched to oral multivitamin - Pt scoring high on CIWA mainly due to agitation/ pacing. Not sure this is due to alcohol withdrawals vs normal psychiatric state. - Unlikely for patient symptoms to be related to withdrawal one week after admission. (5) Impaired mobility and ADLs Code(s): Z74.09 - Other reduced mobility Status: Acute Plan: Patient states that he is unable to walk using his cane anymore due to his broken ankle and therefore is now using a wheelchair. According to psychiatry' s note, patient is unable to and will not care for himself. Head CT on admission showed no acute findings in the brain -PT consulted -OT consulted -Case management consulted for possible placement/safe discharge - Pt evaluated by psychiatry and considered to have NO capacity to make decisions. (6) Sunburn Code(s): L55.9 - Sunburn, unspecified Status: Acute Plan: Blistering sunburn of dorsal aspect of bilateral feet. No systemic sx. -Consult wound care, appreciate recommendations 1.Please cleanse bilateral feet wounds with normal saline and pat dry. 2. Apply Silvadene ointment to wounds and cover with dry cover dressing, secured with rolled gauze and tape 3. Change dressing daily. (7) Blindness Code(s): H54.7 - Unspecified visual loss Status: Chronic Plan: According to chart review from Ophthalmology in [place], patient has a history of bilateral mature cataracts and phacomorphic glaucoma. (8) Nutrition, metabolism, and development symptoms Code(s): R63.8 - Other symptoms and signs concerning food and fluid intake Status: Acute Plan: Fluids: PO intake. Fluid restricted to 800ml/day Electrolytes: monitor and replete as needed, noted hyponatremia (see plan above) Nutrition: Regular diet GI: no prophylaxis indicates at this time (9) DVT prophylaxis Status: Acute Plan: DVT Prophylaxis: Early ambulation. 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 Sher act has been lifted by psychiatry. Patient is not a safe discharge due to blindness and wheelchair bound. During observation period, pt has develop severe hyponatremia requiring close monitoring and inpatient hospitalization. 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 Pt's etiology for hyponatremia is unclear at this time. He is on sodium pills and his salt levels continue to fluctuate. His mental status and possible dementia, are also of unclear etiology. Will continue to further investigate and work with nephrology. Pt seen and discussed with Dr. Delaney <Kailee Mejia V - 04/23/18 12:41> - Attending Attestation The exam, history, and the medical decision-making described in the above note were completed with the assistance of the resident physician. I reviewed and agree with the findings presented. I attest that I had a [id number] encounter with the patient on the same day, and personally performed and documented my assessment and findings in the medical record. He seems to find water whenever he can and is probably drinking too much even though he has been on a fluid restriction. It is going to be even worse when he leaves the hospital as they are probably going to have a harder time at a [facility] keeping him fluid restricted when he is very thirsty all the time. Workup will be done to see about lung cancer or other cancers. <Ruth Delaney - 04/24/18 13:03> <Kailee Mejia V - Last Filed: 04/23/18 12:19> (2) Dementia Qualifiers: Dementia behavioral disturbance: with behavioral disturbance <Ruth Delaney - Last Filed: 04/24/18 13:03> (2) Dementia Qualifiers: Dementia behavioral disturbance: with behavioral disturbance <Kailee Mejia V - Last Filed: 04/23/18 12:19> (2) Dementia Qualifiers: Dementia behavioral disturbance: with behavioral disturbance <Ruth Delaney - Last Filed: 04/24/18 13:03> (2) Dementia Qualifiers: Dementia behavioral disturbance: with behavioral disturbance
[2018-04-23] MEDS ORDERED: Furosemide 40 MG Tablet PO ONE (10:30)
--- NOTE | 2018-04-23 12:23 | CT ---
EXAM DATE: 04/23/2018 12:15 PM EDT AGE/SEX: 67 years / Male INDICATIONS: Severe hyponatremia CLINICAL DATA: This is the patient's initial encounter. Patient reports that signs and symptoms have been present for 1 day and indicates a pain score of 0/10. MEDICAL/SURGICAL HISTORY: . Blind None. RADIATION DOSE: 13.08 CTDI (mGy) COMPARISON: [facility] – [place], CT PULMONARY ANGIOGRAM, 03/11/2017. . TECHNIQUE: Multiple contiguous axial images were obtained through the chest without contrast. Image s were obtained in suspended respiration using multiple row detector helical technique. Using automa juan carlos exposure control and adjustment of the mA and/or kV according to patient size, radiation dose was kept as low as reasonably achievable to obtain optimal diagnostic quality images. DICOM format imag e data is available electronically for review and comparison. FINDINGS: Lungs: There is paraseptal emphysema. No infiltrate. Right perihilar mass narrows the bronchus inter medius on the right measuring 5.3 x 4.4 cm. Mediastinum: There is good visualization of the great vessels of the middle mediastinum. Right dista l paratracheal adenopathy measures 2.3 cm in short axis. Coronary artery calcifications. Pleurae: No evidence of focal thickening or pleural effusion. Axillae: Unremarkable. Bony Structures: Unremarkable. Miscellaneous: The examination was extended to include the upper abdomen, and both adrenal glands ar e normal in size and configuration. CONCLUSION: 1. 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 Bronchoscopy recommended. 2. Minimal paraseptal emphysema. 3. Right distal paratracheal adenopathy. Electronically signed by: Ld Kirk MD 04/23/2018 12:21 PM EDT
--- NOTE | 2018-04-23 12:25 | CT ---
EXAM DATE: 04/23/2018 12:13 PM EDT AGE/SEX: 67 years / Male INDICATIONS: Cancer suspicion CLINICAL DATA: This is the patient's initial encounter. Patient reports that signs and symptoms have been present for 1 day and indicates a pain score of 0/10. MEDICAL/SURGICAL HISTORY: . Blind None. RADIATION DOSE: 13.08 CTDI (mGy) COMPARISON: [facility], CHEST 1V SINGLE AP, 04/17/2018. . TECHNIQUE: Multiple contiguous axial images were obtained through the abdomen. Images were obtained using multiple row detector helical technique. Using automated exposure control and adjustment of the mA and/or kV according to patient size, radiation dose was kept as low as reasonably achievable to o btain optimal diagnostic quality images. DICOM format image data is available electronically for rev iew and comparison. FINDINGS: Lower Lungs: Right hilar mass Liver: The liver has a homogeneous density without space-occupying lesion. There is no dilation of th e biliary tree. Spleen: Homogeneous density without enlargement. Pancreas: Unremarkable without mass or calcification. Kidneys: Normal in size and shape. No evidence of mass or hydronephrosis. Adrenal Glands: Unremarkable. Aorta: Atherosclerotic changes without aneurysmal dilation. Bowel/Mesentery: Diverticulosis of the colon. Abdominal Wall: Intact. Retroperitoneum: No evidence of adenopathy in the retrocrural, para-aortic, or deep pelvic regions. Bladder: Contours are smooth. Reproductive Organs: No abnormal masses or calcifications seen. Inguinal: The inguinal region is unremarkable without evidence of adenopathy. Bony Structures: Degenerative changes thoracolumbar spine. CONCLUSION: 1. Right perihilar mass. 2. No adenopathy in the abdomen. 3. Lack of intravenous contrast limits evaluation. 4. Diverticulosis without diverticulitis. Electronically signed by: Ld Kirk MD 04/23/2018 12:24 PM EDT
--- NOTE | 2018-04-23 14:08 | P.PNNP ---
Subjective Interval history: 67-year-old male apparently with a history of alcohol abuse. Patient is a poor historian as he is currently confused. Apparently he was admitted to this institution on of this month with a sodium level of 127. Sodium level is actually 121 yesterday. Surprisingly no urine osmolality of serum osmolality was ordered until today and still pending. Sodium level worsened this a.m. to 116 and I was only consulted this afternoon. Patient said to be confused. Is demanding water but according to the nurse has not been drinking excessive amount of fluids. 04/22/18 Pt laying in bed. Asking for food and coffee. Despite being on fluid restrictions, I am concerned that he is intaking more than allotted 800mL. Denies any NVD. 04/23/18 Pt sitting in wheelchair at doorway of room. No complaints, but continuously asking for fluids. Appears to be at baseline mentation. <Archana Baltazar R - Last Filed: 04/23/18 13:58> Physical Exam Vital signs: Vital Signs 04/22/18 16:00 04/22/18 20:00 04/23/18 00:00 Temperature 97.6 F 97.7 F 97.3 F L Pulse Rate 84 74 83 Respiratory Rate 17 20 20 Blood Pressure 146/78 H 152/92 H 158/79 H Pulse Oximetry 97 97 95 04/23/18 04:00 04/23/18 08:00 04/23/18 12:00 Temperature 98.3 F 97.4 F L 97.7 F Pulse Rate 75 95 H 90 Respiratory Rate 20 20 20 Blood Pressure 173/81 H 144/77 H 134/65 Pulse Oximetry 94 L 94 L 97 Intake & Output 04/22/18 04/23/18 04/23/18 18:59 06:59 18:59 Intake Total 360 / 360 3000 / 3000 Output Total 1500 / 1500 Balance 360 / 360 1500 / 1500 Intake: Oral 360 / 360 3000 / 3000 Output: Urine 1500 / 1500 Other: # Voids 7 7 Date of Last Bowel Movement 04/21/18 04/21/18 # Bowel Movements 4 - Constitutional no acute distress - Routine Respiratory Exam Present: CTA bilaterally - Routine Cardiovascular Exam Present: RRR, S1, S2 - Routine Extremities Exam Absent: edema - Routine Neurological Exam Present: alert <Archana Baltazar R - Last Filed: 04/23/18 13:58> Vital signs: Vital Signs 04/22/18 16:00 04/22/18 20:00 04/23/18 00:00 Temperature 97.6 F 97.7 F 97.3 F L Pulse Rate 84 74 83 Respiratory Rate 17 20 20 Blood Pressure 146/78 H 152/92 H 158/79 H Pulse Oximetry 97 97 95 04/23/18 04:00 04/23/18 08:00 04/23/18 12:00 Temperature 98.3 F 97.4 F L 97.7 F Pulse Rate 75 95 H 90 Respiratory Rate 20 20 20 Blood Pressure 173/81 H 144/77 H 134/65 Pulse Oximetry 94 L 94 L 97 Intake & Output 04/22/18 04/23/18 04/23/18 18:59 06:59 18:59 Intake Total 360 / 360 3000 / 3000 Output Total 1500 / 1500 Balance 360 / 360 1500 / 1500 Intake: Oral 360 / 360 3000 / 3000 Output: Urine 1500 / 1500 Other: # Voids 7 7 Date of Last Bowel Movement 04/21/18 04/21/18 # Bowel Movements 4 <Ruma Argueta - Last Filed: 04/23/18 15:02> Assessment and Plan - Assessment (1) Hyponatremia Code(s): E87.1 - Hypo-osmolality and hyponatremia Status: Acute Plan: UOsm significantly elevated. CT chest showing 5.3 x 4.4cm right bronchus mass concerning for malignancy. 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 Will consult pulmonary for evaluation and potential bronchoscopy. To continue on NaCl tablets. Received Lasix 40mg po this AM. Will give 1 dose of Tolvaptan 15mg today. Will lift fluid restriction while on this medication. Continue q6h Na labs. <Archana Baltazar - Last Filed: 04/23/18 13:58> - Assessment (1) Hyponatremia Code(s): E87.1 - Hypo-osmolality and hyponatremia Status: Acute - Attending Attestation The exam, history, and the medical decision-making described in the above note were completed with the assistance of the PAJyoti. I reviewed and agree with the findings presented. I attest that I had a [id number] encounter with the patient on the same day, and personally performed and documented my assessment and findings in the medical record. Presence of right lung mass noted. Recommend pulmonary consultation at this point in time. Serum sodium level has deteriorated. Will order tolvaptan. Per literature fluid restriction will be discontinued while patient is on tolvaptan. <Ruma Argueta - Last Filed: 04/23/18 15:02>
[2018-04-23 22:59] LABS: Folate 16.2 ng/mL (3.1-17.5)
[2018-04-24] MEDS: Sodium Chloride 1 GM Tablet PO SCH ×3 (05:12→21:35)
[2018-04-24] MEDS: Heparin - SQ 10,000 UNITS/ML Vial SQ SCH ×2 (05:12→16:45)
[2018-04-24] MEDS: amLODIPine 5 MG Tablet PO SCH (08:02)
[2018-04-24] MEDS: Multivitamin/Minerals Therapeutic Tablet PO SCH (08:03)
--- NOTE | 2018-04-24 09:39 | P.PNFP ---
Subjective Interval history: Patient seen and examined this morning. He states that he is doing fine. When informed about the mass in his lung he states that he has known about it for years, but had chosen not to do anything due to having no issues. No complaints, no chest pain, no shortness of breath, no pain in his feet. <Shima Brown - 04/24/18 09:39> Results - Labs Result diagrams: 04/23/18 05:30 04/24/18 10:50 <ElainaRuth M - 04/24/18 15:28> Abnormal lab results 04/23/18 04/24/18 04/24/18 Range/Units 21:57 03:45 10:50 Sodium 117 L* 122 L* 125 L (136-145) meq/L Chloride 90 L (98-107) meq/L Estimated GFR 77 L (>89) mL/min [facility] 04/23/18 04/24/18 04/24/18 21:57 03:45 10:50 Sodium 117 L* 122 L* 125 L Potassium 3.9 Chloride 90 L Carbon Dioxide 23.0 BUN 16 Creatinine 0.97 Calcium 9.6 D <ElainaRuth Thomas - 04/24/18 15:28> Abnormal lab results 04/23/18 04/24/18 Range/Units 21:57 03:45 Sodium 117 L* 122 L* (136-145) meq/L [facility] 04/23/18 04/24/18 21:57 03:45 Sodium 117 L* 122 L* <Shima Brown - 04/24/18 09:39> - Imaging Impressions Abdomen/Pelvis CT 04/23/18 00:00 CONCLUSION: 1. Right perihilar mass. 2. No adenopathy in the abdomen. 3. Lack of intravenous contrast limits evaluation. 4. Diverticulosis without diverticulitis. Chest CT 04/23/18 00:00 CONCLUSION: 1. Right perihilar mass narrows the right bronchus intermedius measuring 5.3 x 4.4 cm, consistent with bronchoalveolar carcinoma. Bronchoscopy recommended. 2. Minimal paraseptal emphysema. 3. Right distal paratracheal adenopathy. <Shima Brown - 04/24/18 09:39> Physical Exam Vital signs: Vital Signs 04/23/18 16:00 04/23/18 20:00 04/24/18 00:00 Temperature 97.5 F L 97.9 F 97.9 F Pulse Rate 112 H 121 H 96 H Respiratory Rate 19 18 20 Blood Pressure 126/70 173/112 H 119/61 Pulse Oximetry 98 95 93 L 04/24/18 08:00 04/24/18 12:00 04/24/18 15:03 Temperature 97.2 F L 97.5 F L 97.3 F L Pulse Rate 84 84 73 Respiratory Rate 18 19 18 Blood Pressure 147/70 H 113/56 L 110/54 L Pulse Oximetry 95 95 96 Intake & Output 04/23/18 04/24/18 04/24/18 18:59 06:59 18:59 Intake Total 800 / 800 Balance 800 / 800 Weight 83.3 kg Intake: Oral 800 / 800 Other: # Voids 4 Date of Last Bowel Movement 04/21/18 04/23/18 <Ruth Delaney M - 04/24/18 15:28> Vital Signs 04/23/18 12:00 04/23/18 16:00 04/23/18 20:00 Temperature 97.7 F 97.5 F L 97.9 F Pulse Rate 90 112 H 121 H Respiratory Rate 20 19 18 Blood Pressure 134/65 126/70 173/112 H Pulse Oximetry 97 98 95 04/24/18 00:00 04/24/18 08:00 Temperature 97.9 F 97.2 F L Pulse Rate 96 H 84 Respiratory Rate 20 18 Blood Pressure 119/61 147/70 H Pulse Oximetry 93 L 95 Intake & Output 04/23/18 04/24/18 04/24/18 18:59 06:59 18:59 Intake Total 800 / 800 Balance 800 / 800 Weight 83.3 kg Intake: Oral 800 / 800 Other: # Voids 4 Date of Last Bowel Movement 04/21/18 04/23/18 <Shima Brown G - 04/24/18 09:39> Narrative: GENERAL: Well-nourished, well-developed patient. Dishevel appearance , sitting in his wheelchair. NAD SKIN: Warm and dry. Sunburns on feet now covered with bandages. HEAD: Normocephalic and atraumatic. ENT: No nasal drainage noted. Airway patent. NECK: Supple, trachea midline. No enlarged thyroid palpated, no nodules. CARDIOVASCULAR: Regular rate and rhythm without murmurs, gallops, or rubs. RESPIRATORY: Breath sounds equal bilaterally. No accessory muscle use. ABDOMINAL: Non tender to palpation, soft, no masses, no guarding. EXTREMITIES: No cyanosis or edema. Sunburns on bilateral dorsal feet bandaged and in socks, and left shoulder NEUROLOGICAL: Awake, not oriented, answers some questions, but ignores some. 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 neoplasm of unspecified part of unspecified bronchus or lung Status: Acute (2) Hyponatremia Code(s): E87.1 - Hypo-osmolality and hyponatremia Status: Chronic (3) Dementia Code(s): F03.90 - Unspecified dementia without behavioral disturbance Status: Acute (4) Hypokalemia Code(s): E87.6 - Hypokalemia Status: Resolved (5) Alcohol abuse Code(s): F10.10 - Alcohol abuse, uncomplicated Status: Chronic (6) Impaired mobility and ADLs Code(s): Z74.09 - Other reduced mobility Status: Acute (7) Sunburn Code(s): L55.9 - Sunburn, unspecified Status: Acute (8) Blindness Code(s): H54.7 - Unspecified visual loss Status: Chronic (9) Nutrition, metabolism, and development symptoms Code(s): R63.8 - Other symptoms and signs concerning food and fluid intake Status: Acute (10) DVT prophylaxis Status: Acute <Ruth Delaney - 04/24/18 15:28> (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 CT chest on 04/23 showed right perihilar mass measuring 5.3 x 4.4 cm, consistent with bronchioalveolar carcinoma. Pulmonology consulted, appreciate recommendations -Consult palliative care to assist with goals of care and social insurance analyst evaluation. -We will continue with oxygen and maintain sats above 92% and placed on bronchodilators in the form of DuoNeb q.6 plus q.2 p.r.n. for shortness of breath and add Symbicort 160/4.5 two puffs b.i.d. -Monitor electrolytes closely. (2) Hyponatremia Code(s): E87.1 - Hypo-osmolality and hyponatremia Status: Chronic Plan: Sodium level on admission was 127. Patient was continuously asking for water in the ED. May be due to psychogenic polydipsia versus SIADH versus beer potomania.Pt sodium continues to be low despite regular diet, and fluid restriction. We suspect, his water restriction has not been strict enough, and patient is drinking more than allowed. We reinstated today that he MUST be fluid restricted to 800ml/ day. Sodium critically low at 116 on 04/20. Received 100ml of 3% hypertonic saline per nephrology. Has improved. Sodium this mornin Urine Na 155. urine osmolality 551 Pending labs: TSH wnl, blood osmolality 248 NaCl pills 1 gr TID, Pending cortisol level. Although unlikely given his elevated BP, adrenal insufficiency can cause hyponatremia. Added CT abdomen and pelvis to Nephrology CT chest due to concern for malignancy. Monitor closely for mental status changes and seizures. Will give one dose of Lasix 40mg PO after urine osmolality is collected with intend to get rid of free water. Nephrology consulted, appreciate recommendations -Continue on NaCl tablets. -Will give 1 dose of Tolvaptan 15mg today. Will lift fluid restriction while on this medication. -Continue q6h Na labs. (3) Dementia Code(s): F03.90 - Unspecified dementia without behavioral disturbance Status: Acute Plan: Pt has been admitted to this hospital for almost one week. It is very difficult to asses a baseline mental status for him. He is confused at times, and more alert at others. He cannot provide an adequate health history. Some evenings, he is combative, confused, and agitated. At this point we feel the need to attempt to find a cause of his dementia. DDx include: Alzheimer, infection (HIV , Syphillis), B12 deficiency and/or folate. -Psychiatry consult 04/19 determined patient does not have capacity. - TSH wnl - HIV nonreactive - RPR nonreactive - B12 and folate leve WNL (4) Hypokalemia Code(s): E87.6 - Hypokalemia Status: Resolved Plan: Potassium at 3.3 upon admission. Stable since ED correction -Given KCl 20meq once in ED - Continue to monitor daily (5) Alcohol abuse Code(s): F10.10 - Alcohol abuse, uncomplicated Status: Chronic Plan: Her chart review, patient has a long history of alcohol abuse. Patient is unsure of his last drink. -Will initiate CIWA protocol -Escalate care as needed -Pt received rally packs for two days -> now switched to oral multivitamin - Pt scoring high on CIWA mainly due to agitation/ pacing. Not sure this is due to alcohol withdrawals vs normal psychiatric state. - Unlikely for patient symptoms to be related to withdrawal one week after admission. (6) Impaired mobility and ADLs Code(s): Z74.09 - Other reduced mobility Status: Acute Plan: Patient states that he is unable to walk using his cane anymore due to his broken ankle and therefore is now using a wheelchair. According to psychiatry' s note, patient is unable to and will not care for himself. Head CT on admission showed no acute findings in the brain -PT consulted -OT consulted -Case management consulted for possible placement/safe discharge - Pt evaluated by psychiatry and considered to have NO capacity to make decisions. (7) Sunburn Code(s): L55.9 - Sunburn, unspecified Status: Acute Plan: Blistering sunburn of dorsal aspect of bilateral feet. No systemic sx. -Consult wound care, appreciate recommendations 1.Please cleanse bilateral feet wounds with normal saline and pat dry. 2. Apply Silvadene ointment to wounds and cover with dry cover dressing, secured with rolled gauze and tape 3. Change dressing daily. (8) Blindness Code(s): H54.7 - Unspecified visual loss Status: Chronic Plan: According to chart review from Ophthalmology in [place], patient has a history of bilateral mature cataracts and phacomorphic glaucoma. (9) Nutrition, metabolism, and development symptoms Code(s): R63.8 - Other symptoms and signs concerning food and fluid intake Status: Acute Plan: Fluids: PO intake. Electrolytes: monitor and replete as needed, noted hyponatremia (see plan above) Nutrition: Regular diet GI: no prophylaxis indicates at this time (10) DVT prophylaxis Status: Acute Plan: DVT Prophylaxis: Early ambulation. Heparin 5000U subQ q12hr <Shima Brown G - 04/24/18 14:02> - Assessment and Plan 67-year-old male with a past medical history of alcohol abuse, bilateral cataracts, phacomorphic glaucoma presenting to the ED due to a Sher act. Sher act has been lifted by psychiatry. Patient is not a safe discharge due to blindness and wheelchair bound. During observation period, pt has develop severe hyponatremia requiring close monitoring and inpatient hospitalization. Pt developed change of mental status noted by farm or ranch animal caretaker and Na correction was with 100ml 3% hypertonic saline, and continue NaCl pills. Pt's etiology for hyponatremia is unclear at this time. He is on sodium pills and his salt levels continue to fluctuate. His mental status and possible dementia, are also of unclear etiology. Will continue to further investigate and work with nephrology. Bronchoalveolar mass found on chest CT. Pulm is consulted. <Stephanie,Shima G - 04/24/18 14:29> Discussed Condition With: Elaina <Shima Brown - 04/24/18 14:29> Discharge Planning: pending safe discharge <[place],Shima G - 04/24/18 14:29> - Attending Attestation The exam, history, and the medical decision-making described in the above note were completed with the assistance of the resident physician. I reviewed and agree with the findings presented. I attest that I had a [id number] encounter with the patient on the same day, and personally performed and documented my assessment and findings in the medical record. Mr. Welch has been accepted to a custodial for tomorrow/Wednesday. He has severe SIADH and his sodiums drop extremely quickly. Based on his incapacity to make decisions he cannot consent to any bronchoscopy nor could he consented to surgery or other radiation T-ball and other treatments for cancer. He does state that he has a daughter it is difficult to find a decision maker for him as well as to clarify exactly what he wants to do. He may definitely be a hospice candidate but it is difficult to determine that at this time. Can try to discuss with nephrology a good p.o. regimen to try to help this man to not become severely hyponatremic when he does go to the custodial. <Ruth Delaney M - 04/24/18 15:28> <Shima Brown G - Last Filed: 04/24/18 14:02> (1) Bronchoalveolar carcinoma Qualifiers: Laterality: right Qualified Code(s): C34.91 - Malignant neoplasm of unspecified part of right bronchus or lung (3) Dementia Qualifiers: Dementia behavioral disturbance: with behavioral disturbance <Ruth Delaney M - Last Filed: 04/24/18 15:28> (1) Bronchoalveolar carcinoma Qualifiers: Laterality: right Qualified Code(s): C34.91 - Malignant neoplasm of unspecified part of right bronchus or lung (3) Dementia Qualifiers: Dementia behavioral disturbance: with behavioral disturbance <Shima Brown G - Last Filed: 04/24/18 14:02> (1) Bronchoalveolar carcinoma Qualifiers: Laterality: right Qualified Code(s): C34.91 - Malignant neoplasm of unspecified part of right bronchus or lung (3) Dementia Qualifiers: Dementia behavioral disturbance: with behavioral disturbance <Ruth Delaney M - Last Filed: 04/24/18 15:28> (1) Bronchoalveolar carcinoma Qualifiers: Laterality: right Qualified Code(s): C34.91 - Malignant neoplasm of unspecified part of right bronchus or lung (3) Dementia Qualifiers: Dementia behavioral disturbance: with behavioral disturbance
[2018-04-24 11:32] LABS: Calcium 9.6 mg/dL (8.5-10.1); Potassium 3.9 meq/L (3.5-5.1)
[2018-04-24] MEDS: Budesonide-Formoterol 160/4.5 MCG 6 GM Inhaler INH SCH ×2 (13:14→20:15)
--- NOTE | 2018-04-24 13:40 | MB ---
cc: Pati Villavicencio MD DATE: 04/24/2018 HISTORY OF PRESENT ILLNESS: The patient is a 67-year-old homeless male with history of light blindness, who was brought in to ED by Sher Act as the patient was wheeling himself into the street in his wheelchair. Most of the history was obtained from reviewing medical records, as the patient is a poor historian. His laboratory data showed hyponatremia with a sodium level of 127. Chest x-ray on arrival showed no acute abnormality. The patient underwent a CT scan of the chest yesterday, which showed a right perihilar mass that narrows the right bronchus intermedius measuring 5.3 x 4.4 cm. Minimal paraseptal emphysema and right distal paratracheal adenopathy. Pulmonary medicine was consulted for abnormal CT chest. CT abdomen and pelvis was also obtained which showed diverticulosis without any evidence of diverticulitis. He has been seen by nephrology and psychiatry service. PAST MEDICAL HISTORY: Significant for blindness and a broken ankle. PAST SURGICAL HISTORY: None. SOCIAL HISTORY: The patient is homeless. Active smoker, he smokes a pack of cigarettes per day, and active drinker. ALLERGIES: NO KNOWN DRUG ALLERGIES. MEDICATIONS AT HOME: None. ACTIVE MEDICATIONS: Include Norvasc, clonidine p.r.n. REVIEW OF SYSTEMS: As per HPI. Rest of review of systems is limited as the patient is a poor historian. PHYSICAL EXAMINATION: GENERAL: The patient is a 67-year-old male, legally blind, sitting in a wheelchair in his room on room air oxygen. VITAL SIGNS: Temperature 97.2, pulse 84, respiratory rate of 18, blood pressure 147/95, saturation 95% on room air. HEENT: Atraumatic, normocephalic. Nonicteric. Sclerae. No drainage. NECK: Supple. No JVD, adenopathy or thyromegaly. Trachea in the midline. CARDIOVASCULAR: Regular rate and rhythm. Normal S1, S2. No murmurs, rubs or gallops noted. PULMONARY: Bilateral equal air entry. No rales or wheezing. ABDOMEN: Soft, nontender, nondistended, positive bowel sounds. EXTREMITIES: No cyanosis, clubbing or edema. NEUROLOGIC: No focal sensory deficit. LABORATORY DATA: WBC 5.7, hemoglobin 13.3, hematocrit 37, platelet count of 288. Sodium 122 this morning from 117, potassium 3.8, chloride 83, CO2 23, BUN 7, creatinine 0.47, glucose of 89. RADIOGRAPHIC STUDIES: CT chest showed a right perihilar mass measuring 5.3 x [address] abdomen showed diverticulosis without any evidence of diverticulitis. IMPRESSION: 1. Right perihilar mass measuring 5.3 x 4.4 cm, consistent with bronchioalveolar carcinoma. 2. Likely chronic obstructive pulmonary disease. 3. Active tobacco abuse. 4. Hyponatremia, likely related to syndrome of inappropriate antidiuretic hormone secretion from malignancy. 5. Blindness. 6. Hypertension. RECOMMENDATIONS: CT scan of the chest reviewed as stated above showed right perihilar mass, narrows the right bronchus intermedius measuring 5.3 x 4.4 cm, likely consistent with bronchoalveolar carcinoma. The patient will need either a CT-guided lung biopsy or bronchoscopy with a transbronchial biopsy; however, at this time, given his mental status, he is not consentable to either procedure. This gentleman is homeless, wheelchair bound and no family members available at this time. I doubt he is a candidate for any chemotherapy or possible surgical intervention due to his poor functional status. Discussed with Dr. Delaney. PLAN: 1. Consult palliative care to assist with goals of care and social welfare administrator evaluation. 2. We will continue with oxygen and maintain sats above 92% and placed on bronchodilators in the form of DuoNeb q.6 plus q.2 p.r.n. for shortness of breath and add Symbicort 160/4.5 two puffs b.i.d. 3. Monitor electrolytes closely. He is on Samsca 15 mg daily per nephrology for SIADH. 4. He is NO CODE, DNR per medical records. Thank you for the consultation and allowing us to participate in this patient's care. MD RAJ Lopez/adina , 10:59 AM , 11:13 AM
[2018-04-25 01:07] LABS: Anion Gap 12 meq/L (5-15); Blood Urea Nitrogen 16 mg/dL (7-18); Calcium 8.9 mg/dL (8.5-10.1); Carbon Dioxide 24.2 meq/L (21.0-32.0); Chloride 99 meq/L (98-107); Glomerular Filtration Rate Greater Than 89 mL/min (>89); Glucose,Random 102 mg/dL (74-106); Potassium 3.6 meq/L (3.5-5.1); Sodium 135 meq/L (136-145)
[2018-04-25] MEDS: Sodium Chloride 1 GM Tablet PO SCH ×3 (05:30→22:48)
[2018-04-25] MEDS: Heparin - SQ 10,000 UNITS/ML Vial SQ SCH ×2 (05:32→18:07)
[2018-04-25] MEDS: Budesonide-Formoterol 160/4.5 MCG 6 GM Inhaler INH SCH ×2 (10:12→22:49)
[2018-04-25] MEDS: amLODIPine 5 MG Tablet PO SCH (10:12)
[2018-04-25] MEDS: Multivitamin/Minerals Therapeutic Tablet PO SCH (10:12)
--- NOTE | 2018-04-25 11:56 | P.PNNP ---
Subjective Interval history: Pulmonary consultation performed. Noted plan of management being formulated in regard to probable pulmonary malignancy. Difficult to obtain an opinion from the patient in regard to this from conversation. Physical Exam Vital signs: Vital Signs 04/24/18 12:00 04/24/18 15:03 04/25/18 00:00 Temperature 97.5 F L 97.3 F L 97.3 F L Pulse Rate 84 73 75 Respiratory Rate 19 18 16 Blood Pressure 113/56 L 110/54 L 137/66 Pulse Oximetry 95 96 97 04/25/18 08:00 Temperature 98.3 F Pulse Rate 87 Respiratory Rate 19 Blood Pressure 130/62 Pulse Oximetry 99 Intake & Output 04/24/18 04/25/18 04/25/18 18:59 06:59 18:59 Intake Total 720 / 720 Balance 720 / 720 Weight 80.4 kg Intake: Oral 720 / 720 Other: # Voids 4 1 Date of Last Bowel Movement 04/23/18 # Bowel Movements 1 Narrative: GENERAL: Well-nourished, well-developed patient. Dishevel appearance, SKIN: Warm and dry. Sunburns on feet now covered with bandages. HEAD: Normocephalic and atraumatic. CARDIOVASCULAR: Regular rate and rhythm without murmurs, gallops, or rubs. RESPIRATORY: Breath sounds equal bilaterally. No accessory muscle use. ABDOMINAL: Non tender to palpation, soft, no masses, no guarding. NEUROLOGICAL: Awake, not oriented, answers some questions, but ignores some. Assessment and Plan - Assessment (1) Hyponatremia Code(s): E87.1 - Hypo-osmolality and hyponatremia Status: Chronic Plan: Serum sodium level improved significantly with tolvaptan. However tolvaptan is not approved for long-term usage in management of SIADH. We will try to convert the patient to sodium chloride pills with furosemide and potassium chloride and monitor serum sodium level in-house. Management of his SIADH as an outpatient will likely be extremely difficult unless the patient is in a structured setting with supervision secondary to noncompliance.. We will see patient intermittently during this admission.
--- NOTE | 2018-04-25 17:34 | P.PNFP ---
Subjective Interval history: Patient seen and examined this morning. He states that he was not informed of his lung mass. He states he never knew he had one. However , during our conversation yesterday morning after I informed him of his CT chest results he stated that he knew about his lung mass and has for years, but decided not to do anything about it due to it not bothering him. Otherwise, patient has no complaints. No chest pain, no shortness of breath, no fevers or chills. He just wanted coffee. <Shima Brown - 04/25/18 17:34> Results - Labs Result diagrams: 04/23/18 05:30 04/24/18 23:51 <Elizabet Villaseñor 04/25/18 20:14> Abnormal lab results 04/24/18 Range/Units 23:51 Sodium 135 L D (136-145) meq/L [facility] 04/24/18 23:51 Sodium 135 L D Potassium 3.6 Chloride 99 D Carbon Dioxide 24.2 BUN 16 Creatinine 0.61 Calcium 8.9 <Elizabet Villaseñor - 04/25/18 20:14> Abnormal lab results 04/24/18 Range/Units 23:51 Sodium 135 L D (136-145) meq/L [facility] 04/24/18 23:51 Sodium 135 L D Potassium 3.6 Chloride 99 D Carbon Dioxide 24.2 BUN 16 Creatinine 0.61 Calcium 8.9 <Shima Brown - 04/25/18 17:34> Physical Exam Vital signs: Vital Signs 04/25/18 00:00 04/25/18 08:00 04/25/18 12:00 Temperature 97.3 F L 98.3 F 98.1 F Pulse Rate 75 87 82 Respiratory Rate 16 19 18 Blood Pressure 137/66 130/62 139/65 Pulse Oximetry 97 99 99 04/25/18 16:00 Temperature 97.3 F L Pulse Rate 89 Respiratory Rate 18 Blood Pressure 142/68 H Pulse Oximetry 96 Intake & Output 04/25/18 04/25/18 04/26/18 06:59 18:59 06:59 Intake Total 1100 / 1100 Output Total 300 / 300 Balance 800 / 800 Weight 80.4 kg Intake: Oral 1100 / 1100 Output: Urine 300 / 300 Other: # Voids 1 8 # Bowel Movements 1 <Elizabet Villaseñor - 04/25/18 20:14> Vital Signs 04/25/18 00:00 04/25/18 08:00 04/25/18 12:00 Temperature 97.3 F L 98.3 F 98.1 F Pulse Rate 75 87 82 Respiratory Rate 16 19 18 Blood Pressure 137/66 130/62 139/65 Pulse Oximetry 97 99 99 04/25/18 16:00 Temperature 97.3 F L Pulse Rate 89 Respiratory Rate 18 Blood Pressure 142/68 H Pulse Oximetry 96 Intake & Output 04/24/18 04/25/18 04/25/18 18:59 06:59 18:59 Intake Total 720 / 720 Balance 720 / 720 Weight 80.4 kg Intake: Oral 720 / 720 Other: # Voids 4 1 Date of Last Bowel Movement 04/23/18 # Bowel Movements 1 <Shima Brown - 04/25/18 17:34> Narrative: GENERAL: Well-nourished, well-developed patient. Disheveled appearance, laying in bed. NAD SKIN: Warm and dry. Sunburns on feet now covered with bandages. HEAD: Normocephalic and atraumatic. ENT: No nasal drainage noted. Airway patent. NECK: Supple, trachea midline. No enlarged thyroid palpated, no nodules. CARDIOVASCULAR: Regular rate and rhythm without murmurs, gallops, or rubs. RESPIRATORY: Breath sounds equal bilaterally. No accessory muscle use. ABDOMINAL: Non tender to palpation, soft, no masses, no guarding. EXTREMITIES: No cyanosis or edema. Sunburns on bilateral dorsal feet bandaged and in socks, and left shoulder NEUROLOGICAL: Awake and alert. 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 unspecified part of unspecified bronchus or lung Status: Acute (2) Hyponatremia Code(s): E87.1 - Hypo-osmolality and hyponatremia Status: Chronic (3) Dementia Code(s): F03.90 - Unspecified dementia without behavioral disturbance Status: Acute (4) Hypokalemia Code(s): E87.6 - Hypokalemia Status: Resolved (5) Alcohol abuse Code(s): F10.10 - Alcohol abuse, uncomplicated Status: Chronic (6) Impaired mobility and ADLs Code(s): Z74.09 - Other reduced mobility Status: Acute (7) Sunburn Code(s): L55.9 - Sunburn, unspecified Status: Acute (8) Blindness Code(s): H54.7 - Unspecified visual loss Status: Chronic (9) Nutrition, metabolism, and development symptoms Code(s): R63.8 - Other symptoms and signs concerning food and fluid intake Status: Acute (10) DVT prophylaxis Status: Acute <Elizabet Villaseñor - 04/25/18 20:14> (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 CT chest on 04/23 showed right perihilar mass measuring 5.3 x 4.4 cm, consistent with bronchioalveolar carcinoma. Pulmonology consulted, appreciate recommendations -Consult palliative care to assist with goals of care and pediatric social worker evaluation. -We will continue with oxygen and maintain sats above 92% and placed on bronchodilators in the form of DuoNeb q.6 plus q.2 p.r.n. for shortness of breath and add Symbicort 160/4.5 two puffs b.i.d. -Monitor electrolytes closely. (2) Hyponatremia Code(s): E87.1 - Hypo-osmolality and hyponatremia Status: Chronic Plan: Sodium level on admission was 127. Patient was continuously asking for water in the ED. May be due to psychogenic polydipsia versus SIADH versus beer potomania. Sodium has now improved to 135. Sodium critically low at 116 on 04/20. Received 100ml of 3% hypertonic saline per nephrology. Has improved. Monitor closely for mental status changes and seizures. Nephrology consulted, appreciate recommendations -Serum sodium level improved significantly with tolvaptan. However tolvaptan is not approved for long-term usage in management of SIADH. D/c'd today -Now on Lasix 20mg po BID, KCl 10meq po BID, NaCl 2g po q8h -Management of his SIADH as an outpatient will likely be extremely difficult unless the patient is in a structured setting with supervision secondary to noncompliance. (3) Dementia Code(s): F03.90 - Unspecified dementia without behavioral disturbance Status: Acute Plan: Pt has been admitted to this hospital for almost one week. It is very difficult to asses a baseline mental status for him. He is confused at times, and more alert at others. He cannot provide an adequate health history. Some evenings, he is combative, confused, and agitated. At this point we feel the need to attempt to find a cause of his dementia. DDx include: Alzheimer, infection (HIV , Syphillis), B12 deficiency and/or folate. -Psychiatry consult 04/19 determined patient does not have capacity. - TSH wnl - HIV nonreactive - RPR nonreactive - B12 and folate level WNL (4) Hypokalemia Code(s): E87.6 - Hypokalemia Status: Resolved Plan: Potassium at 3.3 upon admission. Stable since ED correction -Given KCl 20meq once in ED - Continue to monitor daily (5) Alcohol abuse Code(s): F10.10 - Alcohol abuse, uncomplicated Status: Chronic Plan: Her chart review, patient has a long history of alcohol abuse. Patient is unsure of his last drink. -Will initiate CIWA protocol -Escalate care as needed -Pt received rally packs for two days -> now switched to oral multivitamin - Pt scoring high on CIWA mainly due to agitation/ pacing. Not sure this is due to alcohol withdrawals vs normal psychiatric state. - Unlikely for patient symptoms to be related to withdrawal one week after admission. - D/c'd CIWA meds today (6) Impaired mobility and ADLs Code(s): Z74.09 - Other reduced mobility Status: Acute Plan: Patient states that he is unable to walk using his cane anymore due to his broken ankle and therefore is now using a wheelchair. According to psychiatry' s note, patient is unable to and will not care for himself. Head CT on admission showed no acute findings in the brain -PT consulted -OT consulted -Case management consulted for possible placement/safe discharge - Pt evaluated by psychiatry and considered to have NO capacity to make decisions. (7) Sunburn Code(s): L55.9 - Sunburn, unspecified Status: Acute Plan: Blistering sunburn of dorsal aspect of bilateral feet. No systemic sx. -Consult wound care, appreciate recommendations 1.Please cleanse bilateral feet wounds with normal saline and pat dry. 2. Apply Silvadene ointment to wounds and cover with dry cover dressing, secured with rolled gauze and tape 3. Change dressing daily. (8) Blindness Code(s): H54.7 - Unspecified visual loss Status: Chronic Plan: According to chart review from Ophthalmology in [place], patient has a history of bilateral mature cataracts and phacomorphic glaucoma. (9) Nutrition, metabolism, and development symptoms Code(s): R63.8 - Other symptoms and signs concerning food and fluid intake Status: Acute Plan: Fluids: PO intake. Electrolytes: monitor and replete as needed, noted hyponatremia (see plan above) Nutrition: Regular diet GI: no prophylaxis indicates at this time (10) DVT prophylaxis Status: Acute Plan: DVT Prophylaxis: Early ambulation. 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 Sher act has been lifted by psychiatry. Patient is not a safe discharge due to blindness and wheelchair bound. During observation period, pt has develop severe hyponatremia requiring close monitoring and inpatient hospitalization. Pt developed change of mental status noted by legal receptionist and Na correction was with 100ml 3% hypertonic saline, and continue NaCl pills. Pt's etiology for hyponatremia is likely his bronchoalveolar mass leading to SIADH. Pulm is consulted. <Shima Brown - 04/25/18 17:34> Discussed Condition With: Dr. Harris, Dr. Villaseñor <Shmia Brown - 04/25/18 17:34> Discharge Planning: pending safe discharge, approved for [place] <Shima Brown 04/25/18 17:34> - Attending Attestation Patient seen, examined, and discussed with resident team. I agree with assessment and management as documented and discussed with me. Pt confused this morning - apparently at baseline - he does not recall being told he had lung cancer, despite results being previously discussed. Hyponatremia improved; appreciate nephrology recs. <Elizabet Villaseñor - 04/25/18 20:14> <Shima Brown G - Last Filed: 04/25/18 17:14> (1) Bronchoalveolar carcinoma Qualifiers: Laterality: right Qualified Code(s): C34.91 - Malignant neoplasm of unspecified part of right bronchus or lung (3) Dementia Qualifiers: Dementia behavioral disturbance: with behavioral disturbance <Elizabet Villaseñor - Last Filed: 04/25/18 20:14> (1) Bronchoalveolar carcinoma Qualifiers: Laterality: right Qualified Code(s): C34.91 - Malignant neoplasm of unspecified part of right bronchus or lung (3) Dementia Qualifiers: Dementia behavioral disturbance: with behavioral disturbance <Shima Brown - Last Filed: 04/25/18 17:14> (1) Bronchoalveolar carcinoma Qualifiers: Laterality: right Qualified Code(s): C34.91 - Malignant neoplasm of unspecified part of right bronchus or lung (3) Dementia Qualifiers: Dementia behavioral disturbance: with behavioral disturbance <Elizabet Villaseñor - Last Filed: 04/25/18 20:14> (1) Bronchoalveolar carcinoma Qualifiers: Laterality: right Qualified Code(s): C34.91 - Malignant neoplasm of unspecified part of right bronchus or lung (3) Dementia Qualifiers: Dementia behavioral disturbance: with behavioral disturbance
--- NOTE | 2018-04-25 18:03 | P.PNPL ---
Subjective Interval history: 67 YOWM, homeless, with lung mass Not sure if he wants any cochran Anxious No SOB Pt is blind, homeless Sodium improved Physical Exam Vital signs: Vital Signs 04/25/18 00:00 04/25/18 08:00 04/25/18 12:00 Temperature 97.3 F L 98.3 F 98.1 F Pulse Rate 75 87 82 Respiratory Rate 16 19 18 Blood Pressure 137/66 130/62 139/65 Pulse Oximetry 97 99 99 04/25/18 16:00 Temperature 97.3 F L Pulse Rate 89 Respiratory Rate 18 Blood Pressure 142/68 H Pulse Oximetry 96 Intake & Output 04/24/18 04/25/18 04/25/18 18:59 06:59 18:59 Intake Total 720 / 720 1100 / 1100 Output Total 300 / 300 Balance 720 / 720 800 / 800 Weight 80.4 kg Intake: Oral 720 / 720 1100 / 1100 Output: Urine 300 / 300 Other: # Voids 4 1 8 Date of Last Bowel Movement 04/23/18 # Bowel Movements 1 1 GENERAL: MBMn NAD SKIN: Warm and dry. HEAD: Normocephalic. EYES: No scleral icterus. No injection or drainage. NECK: Supple, trachea midline. No JVD or lymphadenopathy. CARDIOVASCULAR: Regular rate and rhythm without murmurs, gallops, or rubs. RESPIRATORY: Breath sounds equal bilaterally. No accessory muscle use. GASTROINTESTINAL: Abdomen soft, non-tender, nondistended. MUSCULOSKELETAL: No cyanosis, or edema. BACK: Nontender without obvious deformity. No CVA tenderness. Assessment and Plan - Plan IMPRESSION: Lung mass, likly ca COPD Nicotine use SIADH Homeless Blind PLAN: Pt not sure if he wants any cochran If malignant, treatment will be difficult as he is homeless Aerosol banners Palliative care consulted
[2018-04-25] MEDS: Furosemide 20 MG Tablet PO SCH (18:08)
[2018-04-25] MEDS: Potassium Chloride 10 MEQ ER Capsule PO SCH (22:49)
[2018-04-26] MEDS: Sodium Chloride 1 GM Tablet PO SCH ×3 (05:10→21:15)
[2018-04-26] MEDS: Heparin - SQ 10,000 UNITS/ML Vial SQ SCH ×2 (05:10→18:19)
[2018-04-26 05:20] LABS: Anion Gap 10 meq/L (5-15); Blood Urea Nitrogen 12 mg/dL (7-18); Calcium 8.8 mg/dL (8.5-10.1); Carbon Dioxide 25.8 meq/L (21.0-32.0); Chloride 98 meq/L (98-107); Glomerular Filtration Rate Greater Than 89 mL/min (>89); Glucose,Random 94 mg/dL (74-106); Potassium 3.7 meq/L (3.5-5.1); Sodium 134 meq/L (136-145)
[2018-04-26] MEDS: Potassium Chloride 10 MEQ ER Capsule PO SCH ×2 (09:24→21:15)
[2018-04-26] MEDS: Furosemide 20 MG Tablet PO SCH ×2 (09:25→18:19)
[2018-04-26] MEDS: amLODIPine 5 MG Tablet PO SCH (09:26)
[2018-04-26] MEDS: Budesonide-Formoterol 160/4.5 MCG 6 GM Inhaler INH SCH ×2 (09:26→21:15)
[2018-04-26] MEDS: Multivitamin/Minerals Therapeutic Tablet PO SCH (09:26)
--- NOTE | 2018-04-26 12:13 | P.PNFP ---
Subjective Interval history: Patient seen and examined this morning. He states that he is doing fine and has no complaints. He was unhappy about his coffee's preparation. No chest pain, no shortness of breath. <Shima Brown - 04/26/18 16:24> Results - Labs Result diagrams: 04/23/18 05:30 04/28/18 03:56 <Elizabet Villaseñor - 04/29/18 16:51> Abnormal lab results 04/26/18 Range/Units 03:24 Sodium 134 L (136-145) meq/L Creatinine 0.51 L (0.60-1.30) mg/dL BMP 04/26/18 03:24 Sodium 134 L Potassium 3.7 Chloride 98 Carbon Dioxide 25.8 BUN 12 Creatinine 0.51 L Calcium 8.8 <Shima Brown - 04/26/18 12:13> Physical Exam Vital signs: Intake & Output 04/28/18 04/29/18 04/29/18 18:59 06:59 18:59 Intake Total 480 / 480 Balance 480 / 480 Intake: Oral 480 / 480 Other: # Voids 5 <Elizabet Villaseñor - 04/29/18 16:51> Vital Signs 04/25/18 16:00 04/26/18 00:00 04/26/18 07:52 Temperature 97.3 F L 98.2 F 97.4 F L Pulse Rate 89 81 89 Respiratory Rate 18 20 19 Blood Pressure 142/68 H 162/84 H 146/68 H Pulse Oximetry 96 97 99 Intake & Output 04/25/18 04/26/18 04/26/18 18:59 06:59 18:59 Intake Total 1100 / 1100 240 / 240 Output Total 300 / 300 Balance 800 / 800 240 / 240 Weight 81.9 kg Intake: Oral 1100 / 1100 240 / 240 Output: Urine 300 / 300 Other: # Voids 8 2 # Bowel Movements 1 <Shima Brown - 04/26/18 12:13> Narrative: GENERAL: Well-nourished, well-developed patient sitting at edge of bed, in NAD SKIN: Warm and dry. Sunburns on feet now covered with bandages and socks. HEAD: Normocephalic and atraumatic. ENT: No nasal drainage noted. Airway patent. NECK: Supple, trachea midline. No enlarged thyroid palpated, no nodules. CARDIOVASCULAR: Regular rate and rhythm without murmurs, gallops, or rubs. RESPIRATORY: Breath sounds equal bilaterally. No accessory muscle use. ABDOMINAL: Non tender to palpation, soft, no masses, no guarding. EXTREMITIES: No cyanosis or edema. NEUROLOGICAL: Awake and alert. 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 of unspecified part of unspecified bronchus or lung Status: Acute (2) Hyponatremia Code(s): E87.1 - Hypo-osmolality and hyponatremia Status: Chronic (3) Dementia Code(s): F03.90 - Unspecified dementia without behavioral disturbance Status: Acute (4) Alcohol abuse Code(s): F10.10 - Alcohol abuse, uncomplicated Status: Chronic (5) Impaired mobility and ADLs Code(s): Z74.09 - Other reduced mobility Status: Acute (6) Sunburn Code(s): L55.9 - Sunburn, unspecified Status: Acute (7) Blindness Code(s): H54.7 - Unspecified visual loss Status: Chronic (8) Nutrition, metabolism, and development symptoms Code(s): R63.8 - Other symptoms and signs concerning food and fluid intake Status: Acute (9) DVT prophylaxis Status: Acute <Elizabet Villaseñor - 04/29/18 16:51> (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 Pt is unsure if he wants workup, according to Pulm and doing so may be difficult due to his homeless status. Also, if he does not have capacity, he may need someone appointed to make his healthcare decisions. CT chest on 04/23 showed right perihilar mass measuring 5.3 x 4.4 cm, consistent with bronchioalveolar carcinoma. Pulmonology consulted, appreciate recommendations -Consult palliative care to assist with goals of care and social and political studies professor evaluation. -We will continue with oxygen and maintain sats above 92% and placed on bronchodilators in the form of DuoNeb q.6 plus q.2 p.r.n. for shortness of breath and add Symbicort 160/4.5 two puffs b.i.d. -Monitor electrolytes closely. (2) Hyponatremia Code(s): E87.1 - Hypo-osmolality and hyponatremia Status: Chronic Plan: Sodium level on admission was 127. Patient was continuously asking for water in the ED. May be due to psychogenic polydipsia versus SIADH versus beer potomania. Sodium has now improved to 135. Sodium critically low at 116 on 04/20. Received 100ml of 3% hypertonic saline per nephrology with improvement. Monitor closely for mental status changes and seizures. Nephrology consulted, appreciate recommendations -Lasix 20mg po BID, KCl 10meq po BID, NaCl 2g po q8h -Management of his SIADH as an outpatient will likely be extremely difficult unless the patient is in a structured setting with supervision secondary to noncompliance. (3) Dementia Code(s): F03.90 - Unspecified dementia without behavioral disturbance Status: Acute Plan: Pt has been admitted to this hospital for almost one week. It is very difficult to asses a baseline mental status for him. He is confused at times, and more alert at others. He cannot provide an adequate health history. Some evenings, he is combative, confused, and agitated. At this point we feel the need to attempt to find a cause of his dementia. DDx include: Alzheimer, infection (HIV , Syphillis), B12 deficiency and/or folate. -Psychiatry consult 04/19 determined patient does not have capacity. - TSH wnl - HIV nonreactive - RPR nonreactive - B12 and folate level WNL (4) Alcohol abuse Code(s): F10.10 - Alcohol abuse, uncomplicated Status: Chronic Plan: Her chart review, patient has a long history of alcohol abuse. Patient is unsure of his last drink. -Will initiate CIWA protocol -Escalate care as needed -Pt received rally packs for two days -> now switched to oral multivitamin - Pt scoring high on CIWA mainly due to agitation/ pacing. Not sure this is due to alcohol withdrawals vs normal psychiatric state. - Unlikely for patient symptoms to be related to withdrawal one week after admission. - D/c'd CIWA meds today (5) Impaired mobility and ADLs Code(s): Z74.09 - Other reduced mobility Status: Acute Plan: Patient states that he is unable to walk using his cane anymore due to his broken ankle and therefore is now using a wheelchair. According to psychiatry' s note, patient is unable to and will not care for himself. Head CT on admission showed no acute findings in the brain -PT consulted -OT consulted -Case management consulted for possible placement/safe discharge - Pt evaluated by psychiatry and considered to have NO capacity to make decisions. (6) Sunburn Code(s): L55.9 - Sunburn, unspecified Status: Acute Plan: Blistering sunburn of dorsal aspect of bilateral feet. No systemic sx. -Consult wound care, appreciate recommendations 1.Please cleanse bilateral feet wounds with normal saline and pat dry. 2. Apply Silvadene ointment to wounds and cover with dry cover dressing, secured with rolled gauze and tape 3. Change dressing daily. (7) Blindness Code(s): H54.7 - Unspecified visual loss Status: Chronic Plan: According to chart review from Ophthalmology in [place], patient has a history of bilateral mature cataracts and phacomorphic glaucoma. (8) Nutrition, metabolism, and development symptoms Code(s): R63.8 - Other symptoms and signs concerning food and fluid intake Status: Acute Plan: Fluids: PO intake. Electrolytes: monitor and replete as needed, noted hyponatremia (see plan above) Nutrition: Regular diet GI: no prophylaxis indicates at this time (9) DVT prophylaxis Status: Acute Plan: DVT Prophylaxis: Early ambulation. 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 Sher act has been lifted by psychiatry. Patient is not a safe discharge due to blindness and wheelchair bound. During observation period, pt had developed severe hyponatremia requiring close monitoring and inpatient hospitalization. Pt developed change of mental status noted by lead manufacturing engineer and Na correction was with 100ml 3% hypertonic saline. Pt is now on po NaCl tabs and Lasix. Pt's etiology for hyponatremia is likely his bronchoalveolar mass leading to SIADH. Pulm and Palliative care are consulted. <Shima Brown - 04/26/18 16:29> Discussed Condition With: Dr. Adan Pascal <Shima Brown - 04/26/18 16:29> Discharge Planning: pending safe discharge, approved for [place] <Shima Brown - 04/26/18 16:29> - Attending Attestation Patient seen and examined, discussed with resident team on day of documentation. I agree with assessment and management as documented and discussed with me. No new concerns. Sodium stable. <Elizabet Villaseñor - 04/29/18 16:51> <Shima Brown - Last Filed: 04/26/18 16:24> (1) Bronchoalveolar carcinoma Qualifiers: Laterality: right Qualified Code(s): C34.91 - Malignant neoplasm of unspecified part of right bronchus or lung (3) Dementia Qualifiers: Dementia behavioral disturbance: with behavioral disturbance <Elizabet Villaseñor - Last Filed: 04/29/18 16:51> (1) Bronchoalveolar carcinoma Qualifiers: Laterality: right Qualified Code(s): C34.91 - Malignant neoplasm of unspecified part of right bronchus or lung (3) Dementia Qualifiers: Dementia behavioral disturbance: with behavioral disturbance <Shima Brown - Last Filed: 04/26/18 16:24> (1) Bronchoalveolar carcinoma Qualifiers: Laterality: right Qualified Code(s): C34.91 - Malignant neoplasm of unspecified part of right bronchus or lung (3) Dementia Qualifiers: Dementia behavioral disturbance: with behavioral disturbance <Elizabet Villaseñor - Last Filed: 04/29/18 16:51> (1) Bronchoalveolar carcinoma Qualifiers: Laterality: right Qualified Code(s): C34.91 - Malignant neoplasm of unspecified part of right bronchus or lung (3) Dementia Qualifiers: Dementia behavioral disturbance: with behavioral disturbance
--- NOTE | 2018-04-26 15:26 | P.CONPAL ---
Consult Service: Palliative Care Requesting Physician: Shima Brown Reason for Consult: a. To assist with evaluation and management of symptoms including: Confusion, agitation b. To assist medical decision maker(s) with: better understanding of current medical conditions; weighing benefits/burdens of medical treatment options; making medical treatment decisions. Primary Care Provider: Maryann Arellano MD History of Present Illness History of Present Illness: This is a 67-year-old male brought to [facility] on 2017 by the [place] under a Sher act as he was felt to be unable to take care of himself and at a risk for self-harm. He was evaluated by psychiatry and not felt to be appropriate for inpatient admission. He is blind and wheelchair dependent, found to have severe sunburns on both feet from being unable to move himself out of the sun. The police state that he does not possess either the desire nor the ability to care for himself. He is seen frequently in the homeless community and he has been seen to decline both mentally and physically over the past 2 months. DCF has been notified that the patient has been taken into custody under a Sher act and transported to [facility]. He stated that he did have a daughter who lived in [place] and has been homeless for approximately 5 years. He smokes at least a pack a day and drinks beer on a very regular basis. Prior history indicates he drank at least a "4 pack a day". Clinical findings on admission * Presenting labs showed WBC 5.4, hemoglobin 12.4, hematocrit 37.0, platelets 241, sodium 127, potassium 3.3, BUN 18, creatinine 0.80, random glucose 132, AST 21, ALT 18, alkaline phosphatase 79, albumin 3.3, TSH 1.40, urine drug screen was negative, serum alcohol less than 3. * Chest x-ray showed no acute process. * Head CT showed no acute findings with mild left maxillary sinus disease. He was admitted to the resident service and worked up for hyponatremia, which continued to worsen over his hospital course, declining to 116. Nephrology was consulted and started the patient on tolvaptan and sodium tablets as well as a fluid restriction. Sodium today is 134 and stable on current therapy. He underwent noncontrast CT of the chest to screen for possible pulmonary pathology for SIADH showing a right perihilar mass narrowing the right bronchus intermedius measuring 5.3 x 4.4 cm consistent with bronchoalveolar carcinoma, minimal paraseptal emphysema and right distal paratracheal adenopathy. It is noted by pulmonology that he is a poor candidate for treatment due to noncompliance and poor social situation. Patient states he is not certain he wants an oncology workup. As he is not capacitated to make that decision, attempts to reach family are in progress. Patient was able to report past history as below Past medical history Glaucoma Cataracts Severe vision impairment Left malleolus or nondisplaced fracture Surgical history Right cataract pHACO Social history Smoked 1+ pack per day for most of his life. Regular EtOH use when available, previously reported as "a couple of 4 packs daily". No history of illicit drug use. Homeless Family history father at age 75 of cancer Mother at age 80 of heart disease. . Function/Cognitive Trajectory: He has continued to decline over the last 2 months, as noted by the police force who sees him in the community frequently. He has been homeless for the last 5 years and over an unspecified time has weakened to now requiring a wheelchair. His vision has continued to decline to where he sees only shadows. He had previously undergone cataract surgery but had not been compliant with follow-up medical care and has continued to lose vision. At this time he is unable to take care of himself, is unaware of his safety needs and wishes to go to a longterm. . Review of Systems Patient is confused and ROS may not be reliable.. 10 part ROS taken as best as possible from medical record and available family. Constitutional: Reports weakness Eyes: Reports loss of vision Ears, Nose, Mouth, and Throat: Reports poor balance Cardiovascular: Reports leg sores Genitourinary: Reports urinary incontinence Musculoskeletal: Reports muscle weakness Skin/Breast: Reports other (Blistered sunburn on both feet) Neurologic: Reports behavioral changes, Reports confusion Psychiatric: Reports behavioral changes, Reports confusion, Reports irritability Endocrine: Reports increased thirst PMFSH - History History Provided By: Patient, Surgery Scheduler / EMT - Medical History Medical History: Medical History (Last Updated 04/26/18 @ 15:58 by KATHRYN Rothman) Blind in both eyes Cataracts, bilateral Glaucoma Left malleolar fracture - Surgical History Surgical History: Surgical History (Last Updated 04/26/18 @ 16:39 by KATHRYN Rothman) H/O right cataract extraction No history of previous surgery - Tobacco History Tobacco Use In Past 30 Days: Yes Smoking Status: Current every day smoker Tobacco Type: Cigarettes - Alcohol History How Often Do You Have a Drink Containing Alcohol: 4 or more times a week - Substance Use History Substance History: No History of Abuse - Travel History Recent Travel in the [place] Within the Last 8 Weeks: No Recent Travel Out of the Country Within the Last 8 Weeks: No - Immunization History Tetanus Immunization: Unsure Hx Influenza Vaccine This Season: No Medications and Allergies Active Medications: Active Medications Acetaminophen (Tylenol) 650 mg PO Q4H PRN PRN Reason: Temp > 100.4 Albuterol (Duoneb Neb (Prn)) 1 ampul NEB Q2HR NEB PRN PRN Reason: DYSPNEA Albuterol (Duoneb Neb (Leatha)) 1 ampul NEB Q6HR ALT NEB [facility] Last Admin: 04/26/18 09:07 Dose: Not Given Amlodipine Besylate (Norvasc) 5 mg PO DAILY [facility] Last Admin: 04/26/18 09:26 Dose: 5 mg Budesonide/Formoterol Fumarate (Symbicort 160/4.5 Mcg Inh) 2 puff INH BID [facility] Last Admin: 04/26/18 09:26 Dose: 2 puff Clonidine HCl (Catapres) 0.1 mg PO Q6H PRN PRN Reason: SYS BP GREATER THAN 180 [facility] Last Admin: 04/23/18 21:43 Dose: 0.1 mg Enalaprilat (Vasotec Inj) 1.25 mg IV.PUSH Q6H PRN PRN Reason: SEE LABEL COMMENTS Last Admin: 04/19/18 06:35 Dose: 1.25 mg Flumazenil (Romazecon Inj) 0.2 mg IV.PUSH Q1M PRN PRN Reason: OVERSEDATION Furosemide (Lasix) 20 mg PO BID@0900,1800 [facility] Last Admin: 04/26/18 09:25 Dose: 20 mg Haloperidol Lactate (Haldol Inj) 1 mg IV.PUSH Q15M PRN PRN Reason: for severe agitation Last Admin: 04/23/18 05:42 Dose: 1 mg Heparin Sodium (Porcine) (Heparin Inj) 5,000 units SQ Q12H [facility] Last Admin: 04/26/18 05:10 Dose: Not Given Multivitamins/Minerals (Theragran-M) 1 tab PO DAILY [facility] Last Admin: 04/26/18 09:26 Dose: 1 tab Ondansetron HCl (Zofran Inj) 4 mg IV.PUSH Q6H PRN PRN Reason: NAUSEA OR VOMITING Potassium Chloride (Kcl) 10 meq PO BID [facility] Last Admin: 04/26/18 09:24 Dose: 10 meq Silver Sulfadiazine (Silvadene 1% Cream (50 Gm)) 1 applicatio TOPICAL DAILY [facility] Last Admin: 04/26/18 09:26 Dose: 1 applicatio Sodium Chloride (Sodium Chloride) 2 gm PO Q8HR [facility] Last Admin: 04/26/18 05:10 Dose: 2 gm Allergies Allergy/AdvReac Type Severity Reaction Status Date / Time No Known Allergies Allergy Unknown Uncoded 11/10/17 09:47 Home Medications Medication Instructions Recorded Confirmed Type No Known Home Medications 04/17/18 04/17/18 History Advance Directives Living Will: No Healthcare Surrogate: No Power of Quarryman: No Physical Exam Vital Signs: Vital Signs - 24 hr 04/25/18 16:00 04/26/18 00:00 04/26/18 07:52 Temperature 97.3 F L 98.2 F 97.4 F L Pulse Rate 89 81 89 Respiratory Rate 18 20 19 Blood Pressure 142/68 H 162/84 H 146/68 H Pulse Oximetry 96 97 99 04/26/18 12:00 Temperature 98.8 F Pulse Rate 80 Respiratory Rate 19 Blood Pressure 161/95 H Pulse Oximetry 96 I&O: Intake & Output 04/24/18 04/25/18 04/26/18 04/27/18 06:59 06:59 06:59 06:59 Intake Total 800 / 800 720 / 720 1340 / 1340 Output Total 300 / 300 Balance 800 / 800 720 / 720 1040 / 1040 Weight 183 lb 10.321 oz 177 lb 4.026 oz 180 lb 8.937 oz Physical Exam: CONSTITUTIONAL/GENERAL: This is an adequately nourished patient, in no apparent distress. TUBES/LINES/DRAINS: PIV. SKIN: No jaundice, rashes, or lesions. Blistered sunburn healing on bilateral feet. No wounds seen anteriorly. Skin temperature appropriate. Not diaphoretic. HEAD: Atraumatic. Normocephalic. EYES: Visually impaired, sees only shadows. No scleral icterus. No injection or drainage. Fundi not examined. ENT: Hearing grossly normal. Nose without bleeding or purulent drainage. Throat without visible erythema, exudates, masses, or lesions. NECK: Trachea midline. Supple, nontender. No palpable thyroid enlargement or nodularity. CARDIOVASCULAR: Regular rate and rhythm without murmurs, gallops, or rubs. No JVD. Peripheral pulses symmetric. RESPIRATORY/CHEST: Symmetric, unlabored respirations. Breath sounds equal bilaterally, diminished. No wheezes, rales, or rhonchi. GASTROINTESTINAL: Abdomen soft, non-tender, nondistended. No hepato-splenomegaly , or palpable masses. No guarding. Bowel sounds present. GENITOURINARY: Without palpable bladder distension. MUSCULOSKELETAL: Extremities without clubbing, cyanosis, or edema. No joint tenderness or effusion noted. No calf tenderness. No mottling or clubbing. NEUROLOGICAL: Awake and confused, moves all extremities. PSYCHIATRIC: Disoriented. . Diagnostic Tests Laboratory: Laboratory Results - last 72 hr 04/23/18 04/23/18 04/24/18 10:50 21:57 03:45 Sodium 117 L* 122 L* Potassium Chloride Carbon Dioxide Anion Gap BUN Creatinine Estimated GFR Random Glucose Calcium Vitamin B12 305 Folate 16.2 RPR Nonreactive HIV 1&2 Ab/P24 Ag 4thGn 04/24/18 04/24/18 04/24/18 10:50 10:50 23:51 Sodium 125 L 135 L D Potassium 3.9 3.6 Chloride 90 L 99 D Carbon Dioxide 23.0 24.2 Anion Gap 12 12 BUN 16 16 Creatinine 0.97 0.61 Estimated GFR 77 L Greater than 89 Random Glucose 90 102 Calcium 9.6 D 8.9 Vitamin B12 Folate RPR HIV 1&2 Ab/P24 Ag 4thGn Nonreactive 04/26/18 03:24 Sodium 134 L Potassium 3.7 Chloride 98 Carbon Dioxide 25.8 Anion Gap 10 BUN 12 Creatinine 0.51 L Estimated GFR Greater than 89 Random Glucose 94 Calcium 8.8 Vitamin B12 Folate RPR HIV 1&2 Ab/P24 Ag 4thGn Result Diagrams: 04/23/18 05:30 04/26/18 03:24 Imaging: Chest X-Ray 04/17/18 13:32 CONCLUSION: 1. No acute abnormality or significant interval change. Head CT 04/17/18 13:33 CONCLUSION: 1. No acute findings in the brain. 2. Mild left maxillary sinus disease. . Abdomen/Pelvis CT 04/23/18 00:00 CONCLUSION: 1. Right perihilar mass. 2. No adenopathy in the abdomen. 3. Lack of intravenous contrast limits evaluation. 4. Diverticulosis without diverticulitis. Chest CT 04/23/18 00:00 CONCLUSION: 1. Right perihilar mass narrows the right bronchus intermedius measuring 5.3 x 4.4 cm, consistent with bronchoalveolar carcinoma. Bronchoscopy recommended. 2. Minimal paraseptal emphysema. 3. Right distal paratracheal adenopathy. Patient/Family Conference Present at Family Conference: Spoke with patient's daughter, Martina Welch, at length, provided clinical update and advised her of the imaging study findings and executive consultant opinions. Martina stated that she is a heating and cooling technician and understands the radiographic findings. She wished to discuss our conversation with the patient' s sister, her aunt Leonie prior to proceeding with any decisions. Palliative care contact information was provided and offered as well to speak with her aunt either separately or together in a conference call. I was then contacted by the patient's sister, Leonie Welch, and again reviewed the clinical findings , imaging findings and executive consultant opinions. Reviewed patient's recent social history and prognosis. Confirmed psychosocial history given by patient with the sister which was primarily consistent. The sister states that he had been a behavioral problem since a baby and it was the opinion of the family that he had suffered from alcohol syndrome, given their mothers substance use during her . I was then recontacted by Martina with questions regarding final arrangements and did advise her that indigent cremation could be an option if no resources were available for patients burial. We discussed discharge plans to the longterm that has accepted him as well as hospice services to provide an extra layer of medical support given the patient's terminal diagnosis of bronchoalveolar cancer. She and her aunt were both agreeable with hospice services and hospice consultation has been placed, hospice admissions advised with contact information both telephone and email to email the admissions consent package to Martina for review and signature. Martina states that she and her sister, Jeni, (not the patient's daughter), wish to come visit at their earliest convenience and requested the address of the longterm, which was provided. . Family Conference Location: Telephone Issues Discussed: * Palliative care role, purpose, approach * Additional medical, psychosocial, and spiritual history * Patients general health, functional status, and cognitive changes in the months leading up to the current hospitalization * Patient/family understanding of the current medical problems * Patient/family understanding of prognosis * Patients goals of care as best understood from advance directives and/or conversations and/or values * Current medical treatment options and benefits/burdens of those options * Likely scenarios comparing ongoing aggressive care with a transition to comfort measures only * Questions answered to the best of my ability * Palliative care contact information provided Assessment and Plan - Disease Oriented Problem List (1) Hyponatremia (2) Adjustment disorder (3) Impaired mobility and ADLs (4) Blindness (5) Nutrition, metabolism, and development symptoms (6) Alcohol abuse - Symptom Scale (1) Agitation 0-10 Scale: 5 (Mild irritability, noncompliant with fall precautions.) (2) Confusion 0-10 Scale: 5 (Poor safety awareness, not oriented to place, purpose) Pertinent Non-Medical Issues: Psychosocial: Patient was born in [place], [place] where he graduated from high school. 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 He was once to a woman with a child from a previous relationship and had one child of his own with her. They subsequently and he moved to [place] where he was frequently homeless with a long history of tobaccoism and alcoholism. Spiritual: Not an important concept of the patient. Legal: No previous advanced directives. Ethical issues impacting care: Patient is not considered capacitated to make his own decisions. His daughter has agreed to serve as the medical proxy. . Important Contacts: Daughter: Martina Welch Sister: Leonie Holden (home), (cell). . Prognosis: His prognosis is poor. He has poor nutritional status, baseline mental disorder , large right perihilar mass, 5.3 x 4.4 cm. Given his noncompliance with therapy, his confusion and lack of understanding his situation, he is not considered a good candidate for therapy. He is not capacitated to make these decisions per psychiatry and after discussion with his daughter and sister, they believe that hospice will provide him with the kindest solution for comfort at end of life. He is being transferred to a longterm facility with hospice oversight for symptom management. . Code Status: No Code DNR Plan: PLAN: Legal decision maker: Patient is not capacitated for decision-making. His daughter Martina Welch has accepted being a healthcare proxy decision-maker. Per [place] statutes as the patient is , not capacitated, his daughter would be the healthcare proxy, as she chooses to serve. Goals: Comfort oriented. CODE STATUS: DO NOT RESUSCITATE SYMPTOMS: * Agitation: Patient is somewhat irritable and agitated easily. Per the family , this is his baseline status since childhood. He has Haldol available for severe agitation, last dose received 04/23. He is improving with regular nutrition and management of his electrolyte derangements. * Confusion: CT of the head was negative for acute process. This is likely multifactorial to include a long history of alcoholism, electrolyte derangements , baseline disorder noted by family or possible dementia. As he is unaware of his need for safety, he is being admitted to [facility] for assistance with daily needs. His daughter is serving as his healthcare decision maker. SUMMARY This is a 67-year-old male who has been homeless for many years. He has a long history of tobaccoism, alcoholism and poor self-care. 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 He is not felt to be a good candidate for treatment due to his declining mental status and poor compliance. Hospice admissions is now discussing admitting the patient to their service to provide an extra layer of medical support while patient is in the longterm facility. Patient has been made a DO NOT RESUSCITATE by the family. Palliative care will continue to follow the patient during hospital course as condition evolves, to assist patient/decision-maker with understanding of their medical conditions, weighing benefits/burdens of treatment options, for clarification of goals of treatment. Additionally will assist with any symptoms of palliative concern. . Appreciation Thank you for the opportunity to participate in the care of Mateus Welch. Attestation Attestation: To help prompt me to consider important information that might be impacting today's encounter and assessment, information from prior notes written by myself or my colleagues may have been "brought forward" into today's note. My signature on this note, however, is an attestation that I personally performed the exam, history, and/or decision-making noted today, and, unless otherwise indicated, the interactions with patient, family, and staff as well as the review of records all occurred today. I also attest that the listed assessment and stated plan reflect my best clinical judgment today based on the combination of historical information, prior notes, and today's exam/ interactions. When time spent is documented, it refers only to time spent today by the signer, or if indicated, combined time spent today by collaborating physician/nurse practitioner. .
--- NOTE | 2018-04-26 19:22 | P.PNPL ---
Subjective Interval history: 67 YOWM, homeless, with lung mass Not sure if he wants any cochran Anxious No SOB Pt is blind, homeless Sodium improved Palliative care evaluated pt Hospice consulted Physical Exam Vital signs: Vital Signs 04/26/18 00:00 04/26/18 07:52 04/26/18 12:00 Temperature 98.2 F 97.4 F L 98.8 F Pulse Rate 81 89 80 Respiratory Rate 20 19 19 Blood Pressure 162/84 H 146/68 H 161/95 H Pulse Oximetry 97 99 96 04/26/18 16:00 Temperature 98.3 F Pulse Rate 91 H Respiratory Rate 19 Blood Pressure 173/85 H Pulse Oximetry 99 Intake & Output 04/26/18 04/26/18 04/27/18 06:59 18:59 06:59 Intake Total 240 / 240 1180 / 1180 Balance 240 / 240 1180 / 1180 Weight 81.9 kg Intake: Oral 240 / 240 1180 / 1180 Other: # Voids 2 15 # Bowel Movements 2 GENERAL: Elderly Blind male, NAD SKIN: Warm and dry. HEAD: Normocephalic. EYES: No scleral icterus. No injection or drainage. NECK: Supple, trachea midline. No JVD or lymphadenopathy. CARDIOVASCULAR: Regular rate and rhythm without murmurs, gallops, or rubs. RESPIRATORY: Breath sounds equal bilaterally. No accessory muscle use. GASTROINTESTINAL: Abdomen soft, non-tender, nondistended. MUSCULOSKELETAL: No cyanosis, or edema. BACK: Nontender without obvious deformity. No CVA tenderness. Assessment and Plan - Plan IMPRESSION: Lung mass, likly ca COPD Nicotine use SIADH Homeless Blind PLAN: Pt not sure if he wants any cochran If malignant, treatment will be difficult as he is homeless Aerosol [facility] wests Hospice eval.
[2018-04-27] MEDS: Heparin - SQ 10,000 UNITS/ML Vial SQ SCH ×2 (04:54→18:18)
[2018-04-27] MEDS: Sodium Chloride 1 GM Tablet PO SCH ×3 (05:02→23:10)
[2018-04-27] MEDS: Potassium Chloride 10 MEQ ER Capsule PO SCH ×2 (09:14→23:10)
[2018-04-27] MEDS: Multivitamin/Minerals Therapeutic Tablet PO SCH (09:14)
[2018-04-27] MEDS: Budesonide-Formoterol 160/4.5 MCG 6 GM Inhaler INH SCH ×2 (09:15→23:11)
[2018-04-27] MEDS: Furosemide 20 MG Tablet PO SCH ×2 (09:30→18:35)
--- NOTE | 2018-04-27 10:58 | P.PNFP ---
Subjective Interval history: Patient seen and examined this morning. He states that he is doing well. No complaints. No fever/chills, no CP, no shortness of breath, urinating and stooling well. <Shima Brown - 04/27/18 16:39> Results - Labs Result diagrams: 04/23/18 05:30 04/28/18 03:56 <Elizabet Villaseñor - 04/29/18 17:07> Physical Exam Vital signs: Intake & Output 04/28/18 04/29/18 04/29/18 18:59 06:59 18:59 Intake Total 480 / 480 Balance 480 / 480 Intake: Oral 480 / 480 Other: # Voids 5 <Elizabet Villaseñor - 04/29/18 17:07> Vital Signs 04/26/18 12:00 04/26/18 16:00 04/26/18 20:00 Temperature 98.8 F 98.3 F 98.2 F Pulse Rate 80 91 H 77 Respiratory Rate 19 19 20 Blood Pressure 161/95 H 173/85 H 175/89 H Pulse Oximetry 96 99 95 04/27/18 00:00 04/27/18 08:00 Temperature 97.9 F 97.9 F Pulse Rate 77 70 Respiratory Rate 20 19 Blood Pressure 167/90 H 148/72 H Pulse Oximetry 97 97 Intake & Output 04/26/18 04/27/18 04/27/18 18:59 06:59 18:59 Intake Total 1180 / 1180 480 / 480 Balance 1180 / 1180 480 / 480 Weight 85 kg Intake: Oral 1180 / 1180 480 / 480 Other: # Voids 15 5 Date of Last Bowel Movement 04/26/18 # Bowel Movements 2 <Shima Brown - 04/27/18 10:58> Narrative: GENERAL: Well-nourished, well-developed patient sitting at edge of bed eating his breakfast, in NAD SKIN: Warm and dry. Sunburns on feet now covered with bandages and socks. HEAD: Normocephalic and atraumatic. ENT: No nasal drainage noted. Airway patent. NECK: Supple, trachea midline. No enlarged thyroid palpated, no nodules. CARDIOVASCULAR: Regular rate and rhythm without murmurs, gallops, or rubs. RESPIRATORY: Breath sounds equal bilaterally. No accessory muscle use. ABDOMINAL: Non tender to palpation, soft, no masses, no guarding. EXTREMITIES: No cyanosis or edema. NEUROLOGICAL: Awake and alert. 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 unspecified part of unspecified bronchus or lung Status: Acute (2) Hyponatremia Code(s): E87.1 - Hypo-osmolality and hyponatremia Status: Chronic (3) Dementia Code(s): F03.90 - Unspecified dementia without behavioral disturbance Status: Acute (4) Alcohol abuse Code(s): F10.10 - Alcohol abuse, uncomplicated Status: Chronic (5) Impaired mobility and ADLs Code(s): Z74.09 - Other reduced mobility Status: Acute (6) Sunburn Code(s): L55.9 - Sunburn, unspecified Status: Acute (7) Blindness Code(s): H54.7 - Unspecified visual loss Status: Chronic (8) Nutrition, metabolism, and development symptoms Code(s): R63.8 - Other symptoms and signs concerning food and fluid intake Status: Acute (9) DVT prophylaxis Status: Acute <Elizabet Villaseñor - 04/29/18 17:07> (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 Pt is unsure if he wants workup, according to Pulm and doing so may be difficult due to his homeless status. Also, if he does not have capacity, he may need someone appointed to make his healthcare decisions. CT chest on 04/23 showed right perihilar mass measuring 5.3 x 4.4 cm, consistent with bronchioalveolar carcinoma. Pulmonology consulted, appreciate recommendations -Consult palliative care to assist with goals of care and social services coordinator evaluation. -We will continue with oxygen and maintain sats above 92% and placed on bronchodilators in the form of DuoNeb q.6 plus q.2 p.r.n. for shortness of breath and add Symbicort 160/4.5 two puffs b.i.d. -Monitor electrolytes closely. (2) Hyponatremia Code(s): E87.1 - Hypo-osmolality and hyponatremia Status: Chronic Plan: Sodium level on admission was 127. Patient was continuously asking for water in the ED. May be due to psychogenic polydipsia versus SIADH versus beer potomania. Sodium has now improved to 135. Sodium critically low at 116 on 04/20. Received 100ml of 3% hypertonic saline per nephrology with improvement. Monitor closely for mental status changes and seizures. Nephrology consulted, appreciate recommendations -Lasix 20mg po BID, KCl 10meq po BID, NaCl 2g po q8h -Management of his SIADH as an outpatient will likely be extremely difficult unless the patient is in a structured setting with supervision secondary to noncompliance. (3) Dementia Code(s): F03.90 - Unspecified dementia without behavioral disturbance Status: Acute Plan: Pt has been admitted to this hospital for almost one week. It is very difficult to asses a baseline mental status for him. He is confused at times, and more alert at others. He cannot provide an adequate health history. Some evenings, he is combative, confused, and agitated. At this point we feel the need to attempt to find a cause of his dementia. DDx include: Alzheimer, infection (HIV , Syphillis), B12 deficiency and/or folate. -Psychiatry consult 04/19 determined patient does not have capacity. - TSH wnl - HIV nonreactive - RPR nonreactive - B12 and folate level WNL (4) Alcohol abuse Code(s): F10.10 - Alcohol abuse, uncomplicated Status: Chronic Plan: Her chart review, patient has a long history of alcohol abuse. Patient is unsure of his last drink. -Will initiate CIWA protocol -Escalate care as needed -Pt received rally packs for two days -> now switched to oral multivitamin - Pt scoring high on CIWA mainly due to agitation/ pacing. Not sure this is due to alcohol withdrawals vs normal psychiatric state. - Unlikely for patient symptoms to be related to withdrawal one week after admission. - D/c'd CIWA meds today (5) Impaired mobility and ADLs Code(s): Z74.09 - Other reduced mobility Status: Acute Plan: Patient states that he is unable to walk using his cane anymore due to his broken ankle and therefore is now using a wheelchair. According to psychiatry' s note, patient is unable to and will not care for himself. Head CT on admission showed no acute findings in the brain -PT consulted -OT consulted -Case management consulted for possible placement/safe discharge - Pt evaluated by psychiatry and considered to have NO capacity to make decisions. (6) Sunburn Code(s): L55.9 - Sunburn, unspecified Status: Acute Plan: Blistering sunburn of dorsal aspect of bilateral feet. No systemic sx. -Consult wound care, appreciate recommendations 1.Please cleanse bilateral feet wounds with normal saline and pat dry. 2. Apply Silvadene ointment to wounds and cover with dry cover dressing, secured with rolled gauze and tape 3. Change dressing daily. (7) Blindness Code(s): H54.7 - Unspecified visual loss Status: Chronic Plan: According to chart review from Ophthalmology in [place], patient has a history of bilateral mature cataracts and phacomorphic glaucoma. (8) Nutrition, metabolism, and development symptoms Code(s): R63.8 - Other symptoms and signs concerning food and fluid intake Status: Acute Plan: Fluids: PO intake. Electrolytes: monitor and replete as needed, noted hyponatremia (see plan above) Nutrition: Regular diet GI: no prophylaxis indicates at this time (9) DVT prophylaxis Status: Acute Plan: DVT Prophylaxis: Early ambulation. 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 Sher act has been lifted by psychiatry. Patient is not a safe discharge due to blindness and wheelchair bound. During observation period, pt had developed severe hyponatremia requiring close monitoring and inpatient hospitalization. Pt developed change of mental status noted by campus aide and Na correction was with 100ml 3% hypertonic saline. Pt is now on po NaCl tabs and Lasix. Pt's etiology for hyponatremia is likely his bronchoalveolar mass leading to SIADH. Pulm and Palliative care are consulted. <Shima Brown - 04/27/18 16:39> Discussed Condition With: Dr. Villaseñor, Dr. Harris <Shima Brown 04/27/18 16:39> Discharge Planning: pending safe discharge, approved for [place], awaiting daughter to sign hospice paperwork <Shima Brown - 04/27/18 16:39> - Attending Attestation Patient seen and examined, discussed with resident team on day of documentation. I agree with assessment and management as documented and discussed with me. No new concerns. Sodium is stable. <Elizabet Villaseñor - 04/29/18 17:07> <Shima Brown - Last Filed: 04/27/18 16:34> (1) Bronchoalveolar carcinoma Qualifiers: Laterality: right Qualified Code(s): C34.91 - Malignant neoplasm of unspecified part of right bronchus or lung (3) Dementia Qualifiers: Dementia behavioral disturbance: with behavioral disturbance <Elizabet Villaseñor - Last Filed: 04/29/18 17:07> (1) Bronchoalveolar carcinoma Qualifiers: Laterality: right Qualified Code(s): C34.91 - Malignant neoplasm of unspecified part of right bronchus or lung (3) Dementia Qualifiers: Dementia behavioral disturbance: with behavioral disturbance <Shima Brown - Last Filed: 04/27/18 16:34> (1) Bronchoalveolar carcinoma Qualifiers: Laterality: right Qualified Code(s): C34.91 - Malignant neoplasm of unspecified part of right bronchus or lung (3) Dementia Qualifiers: Dementia behavioral disturbance: with behavioral disturbance <Elizabet Villaseñor - Last Filed: 04/29/18 17:07> (1) Bronchoalveolar carcinoma Qualifiers: Laterality: right Qualified Code(s): C34.91 - Malignant neoplasm of unspecified part of right bronchus or lung (3) Dementia Qualifiers: Dementia behavioral disturbance: with behavioral disturbance
[2018-04-27] MEDS: amLODIPine 5 MG Tablet PO SCH (18:18)
[2018-04-28 04:54] LABS: Anion Gap 6 meq/L (5-15); Blood Urea Nitrogen 18 mg/dL (7-18); Calcium 8.7 mg/dL (8.5-10.1); Carbon Dioxide 29.7 meq/L (21.0-32.0); Chloride 100 meq/L (98-107); Glomerular Filtration Rate Greater Than 89 mL/min (>89); Glucose,Random 90 mg/dL (74-106); Sodium 136 meq/L (136-145)
[2018-04-28] MEDS: Sodium Chloride 1 GM Tablet PO SCH ×2 (06:39→15:51)
[2018-04-28] MEDS: Heparin - SQ 10,000 UNITS/ML Vial SQ SCH ×2 (06:40→18:51)
[2018-04-28] MEDS: amLODIPine 5 MG Tablet PO SCH ×2 (07:52→09:50)
[2018-04-28] MEDS: Potassium Chloride 10 MEQ ER Capsule PO SCH ×2 (07:53→09:50)
[2018-04-28] MEDS: Multivitamin/Minerals Therapeutic Tablet PO SCH ×2 (07:53→11:51)
[2018-04-28] MEDS: Furosemide 20 MG Tablet PO SCH (09:50)
[2018-04-28 12:35] VITALS: O2SAT 95
[2018-04-28 12:37] VITALS: BP 114/66; PULSE 95; RESP 18; TEMP 97.6
--- NOTE | 2018-04-28 14:09 | P.PNFP ---
Subjective Interval history: Pt seen and evaluated this morning. He has no complains this morning. He denies SOB, CP, N/V. He is eating his breakfast. <Kailee Mejia V - 04/28/18 18:25> Results - Labs Result diagrams: 04/23/18 05:30 04/28/18 03:56 <Elizabet Villaseñor - 04/29/18 17:15> Abnormal lab results 04/28/18 Range/Units 03:56 Creatinine 0.54 L (0.60-1.30) mg/dL BMP 04/28/18 03:56 Sodium 136 Potassium 4.0 Chloride 100 Carbon Dioxide 29.7 BUN 18 Creatinine 0.54 L Calcium 8.7 <Kailee Mejia V - 04/28/18 14:09> Physical Exam Vital signs: Intake & Output 04/28/18 04/29/18 04/29/18 18:59 06:59 18:59 Intake Total 480 / 480 Balance 480 / 480 Intake: Oral 480 / 480 Other: # Voids 5 <Elizabet Villaseñor - 04/29/18 17:15> Vital Signs 04/27/18 16:00 04/27/18 16:27 04/28/18 00:00 Temperature 97.9 F 97.5 F L Pulse Rate 80 80 87 Respiratory Rate 19 19 18 Blood Pressure 122/74 144/75 H Pulse Oximetry 97 98 04/28/18 08:00 04/28/18 08:55 04/28/18 12:00 Temperature 97.4 F L 97.6 F Pulse Rate 75 81 95 H Respiratory Rate 16 17 18 Blood Pressure 122/65 114/66 Pulse Oximetry 95 95 Intake & Output 04/27/18 04/28/18 04/28/18 18:59 06:59 18:59 Intake Total 800 / 800 480 / 480 Balance 800 / 800 480 / 480 Weight 82.4 kg Intake: Oral 800 / 800 480 / 480 Other: # Voids 5 2 5 <Kailee Mejia V - 04/28/18 14:09> Narrative: GENERAL: Well-nourished, well-developed patient sitting at edge of bed eating his breakfast, in NAD SKIN: Warm and dry. Sunburns on feet covered with bandages and socks. HEAD: Normocephalic and atraumatic. ENT: No nasal drainage noted. Airway patent. NECK: Supple, trachea midline. No enlarged thyroid palpated, no nodules. CARDIOVASCULAR: Regular rate and rhythm without murmurs, gallops, or rubs. RESPIRATORY: Breath sounds equal bilaterally. No accessory muscle use. ABDOMINAL: Non tender to palpation, soft, no masses, no guarding. EXTREMITIES: No cyanosis or edema. NEUROLOGICAL: Awake and alert. 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 of unspecified part of unspecified bronchus or lung Status: Acute (2) Hyponatremia Code(s): E87.1 - Hypo-osmolality and hyponatremia Status: Chronic (3) Dementia Code(s): F03.90 - Unspecified dementia without behavioral disturbance Status: Acute (4) Alcohol abuse Code(s): F10.10 - Alcohol abuse, uncomplicated Status: Chronic (5) Impaired mobility and ADLs Code(s): Z74.09 - Other reduced mobility Status: Acute (6) Sunburn Code(s): L55.9 - Sunburn, unspecified Status: Acute (7) Blindness Code(s): H54.7 - Unspecified visual loss Status: Chronic (8) Nutrition, metabolism, and development symptoms Code(s): R63.8 - Other symptoms and signs concerning food and fluid intake Status: Acute (9) DVT prophylaxis Status: Acute <Elizabet Villaseñor - 04/29/18 17:15> (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 Pt is unsure if he wants workup, according to Pulm and doing so may be difficult due to his homeless status. Also, if he does not have capacity, he may need someone appointed to make his healthcare decisions. CT chest on 04/23 showed right perihilar mass measuring 5.3 x 4.4 cm, consistent with bronchioalveolar carcinoma. Pulmonology consulted, appreciate recommendations -Consult palliative care to assist with goals of care and psychiatric social worker evaluation. -We will continue with oxygen and maintain sats above 92% and placed on bronchodilators in the form of DuoNeb q.6 plus q.2 p.r.n. for shortness of breath and add Symbicort 160/4.5 two puffs b.i.d. -Monitor electrolytes closely. Pt's sister contacted and will continue the discussion for hospice vs palliative care at the SNF. (2) Hyponatremia Code(s): E87.1 - Hypo-osmolality and hyponatremia Status: Chronic Plan: Sodium level on admission was 127. Patient was continuously asking for water in the ED. May be due to psychogenic polydipsia versus SIADH versus beer potomania. Sodium has now improved to 135. Sodium critically low at 116 on 04/20. Received 100ml of 3% hypertonic saline per nephrology with improvement. Monitor closely for mental status changes and seizures. Nephrology consulted, appreciate recommendations - Lasix 20mg po BID, KCl 10meq po BID, NaCl 2g po q8h - Pt will be discharged on this medication regimen. (3) Dementia Code(s): F03.90 - Unspecified dementia without behavioral disturbance Status: Acute Plan: Pt has been admitted to this hospital for almost one week. It is very difficult to asses a baseline mental status for him. He is confused at times, and more alert at others. He cannot provide an adequate health history. Some evenings, he is combative, confused, and agitated. At this point we feel the need to attempt to find a cause of his dementia. DDx include: Alzheimer, infection (HIV , Syphillis), B12 deficiency and/or folate. -Psychiatry consult 04/19 determined patient does not have capacity. - TSH wnl - HIV nonreactive - RPR nonreactive - B12 and folate level WNL (4) Alcohol abuse Code(s): F10.10 - Alcohol abuse, uncomplicated Status: Chronic Plan: Her chart review, patient has a long history of alcohol abuse. Patient is unsure of his last drink. -Will initiate CIWA protocol -Escalate care as needed -Pt received rally packs for two days -> now switched to oral multivitamin - Pt scoring high on CIWA mainly due to agitation/ pacing. Not sure this is due to alcohol withdrawals vs normal psychiatric state. - Unlikely for patient symptoms to be related to withdrawal one week after admission. (5) Impaired mobility and ADLs Code(s): Z74.09 - Other reduced mobility Status: Acute Plan: Patient states that he is unable to walk using his cane anymore due to his broken ankle and therefore is now using a wheelchair. According to psychiatry' s note, patient is unable to and will not care for himself. Head CT on admission showed no acute findings in the brain -PT consulted -OT consulted -Case management consulted for possible placement/safe discharge - Pt evaluated by psychiatry and considered to have NO capacity to make decisions. - Pt will be discharged to a SNF (6) Sunburn Code(s): L55.9 - Sunburn, unspecified Status: Acute Plan: Blistering sunburn of dorsal aspect of bilateral feet. No systemic sx. -Consult wound care, appreciate recommendations 1.Please cleanse bilateral feet wounds with normal saline and pat dry. 2. Apply Silvadene ointment to wounds and cover with dry cover dressing, secured with rolled gauze and tape 3. Change dressing daily. (7) Blindness Code(s): H54.7 - Unspecified visual loss Status: Chronic Plan: According to chart review from Ophthalmology in [place], patient has a history of bilateral mature cataracts and phacomorphic glaucoma. (8) Nutrition, metabolism, and development symptoms Code(s): R63.8 - Other symptoms and signs concerning food and fluid intake Status: Acute Plan: Fluids: PO intake. Electrolytes: monitor and replete as needed, noted hyponatremia (see plan above) Nutrition: Regular diet GI: no prophylaxis indicates at this time (9) DVT prophylaxis Status: Acute Plan: DVT Prophylaxis: Early ambulation. 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 Sher act has been lifted by psychiatry. Patient is not a safe discharge due to blindness and wheelchair bound. During observation period, pt had developed severe hyponatremia requiring close monitoring and inpatient hospitalization. 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 Pt is now on po NaCl tabs and Lasix. Pt's etiology for hyponatremia is likely his bronchoalveolar mass leading to SIADH. Pulm and Palliative care are consulted. Pt is to be discharged to a SNF today. His sister is now his Health care decision maker and will continue to make decisions in the future regarding hospice, vs palliative care. <Kailee Mejia V - 04/28/18 18:25> - Attending Attestation Patient seen and examined, discussed with resident team on day of documentation. I agree with assessment and management as documented and discussed with me. Discharge to SNF today. Dr Harris called patient's daughter, who agrees with discharge to SNF and will follow up with hospice there if decided on that route. <Elizabet Villaseñor - 04/29/18 17:15> <Kailee Mejia V - Last Filed: 04/28/18 18:19> (1) Bronchoalveolar carcinoma Qualifiers: Laterality: right Qualified Code(s): C34.91 - Malignant neoplasm of unspecified part of right bronchus or lung (3) Dementia Qualifiers: Dementia behavioral disturbance: with behavioral disturbance <Elizabet Villaseñor - Last Filed: 04/29/18 17:15> (1) Bronchoalveolar carcinoma Qualifiers: Laterality: right Qualified Code(s): C34.91 - Malignant neoplasm of unspecified part of right bronchus or lung (3) Dementia Qualifiers: Dementia behavioral disturbance: with behavioral disturbance <Steven BarlkeyCammy - Last Filed: 04/28/18 18:19> (1) Bronchoalveolar carcinoma Qualifiers: Laterality: right Qualified Code(s): C34.91 - Malignant neoplasm of unspecified part of right bronchus or lung (3) Dementia Qualifiers: Dementia behavioral disturbance: with behavioral disturbance <Elizabet Villaseñor - Last Filed: 04/29/18 17:15> (1) Bronchoalveolar carcinoma Qualifiers: Laterality: right Qualified Code(s): C34.91 - Malignant neoplasm of unspecified part of right bronchus or lung (3) Dementia Qualifiers: Dementia behavioral disturbance: with behavioral disturbance
--- NOTE | 2018-04-28 16:01 | P.PNPL ---
Subjective Interval history: 67 YOWM, homeless, with lung mass Not sure if he wants any cochran Anxious No SOB Pt is blind, homeless Hospice consulted Physical Exam Vital signs: Vital Signs 04/27/18 16:27 04/28/18 00:00 04/28/18 08:00 Temperature 97.5 F L 97.4 F L Pulse Rate 80 87 75 Respiratory Rate 19 18 16 Blood Pressure 144/75 H 122/65 Pulse Oximetry 98 95 04/28/18 08:55 04/28/18 12:00 Temperature 97.6 F Pulse Rate 81 95 H Respiratory Rate 17 18 Blood Pressure 114/66 Pulse Oximetry 95 Intake & Output 04/27/18 04/28/18 04/28/18 18:59 06:59 18:59 Intake Total 800 / 800 480 / 480 Balance 800 / 800 480 / 480 Weight 82.4 kg Intake: Oral 800 / 800 480 / 480 Other: # Voids 5 2 5 GENERAL: Blind, elderly WM, NAD SKIN: Warm and dry. HEAD: Normocephalic. EYES: No scleral icterus. No injection or drainage. NECK: Supple, trachea midline. No JVD or lymphadenopathy. CARDIOVASCULAR: Regular rate and rhythm without murmurs, gallops, or rubs. RESPIRATORY: Breath sounds equal bilaterally. No accessory muscle use. GASTROINTESTINAL: Abdomen soft, non-tender, nondistended. MUSCULOSKELETAL: No cyanosis, or edema. BACK: Nontender without obvious deformity. No CVA tenderness. Assessment and Plan - Plan IMPRESSION: Lung mass, likly ca COPD Nicotine use SIADH Homeless Blind PLAN: Pt not sure if he wants any cochran If malignant, treatment will be difficult as he is homeless [facility]ol [facility] Hospice eval. DC plans underway.
[2018-04-28] MEDS: Budesonide-Formoterol 160/4.5 MCG 6 GM Inhaler INH SCH (18:50)
--- NOTE | 2018-05-31 16:09 | P.DS ---
Date of admission: 04/20/18 13:39 Primary care physician: Maryann Arellano MD Brief History from admission: Mr. Welch is a 67-year-old white male with a past medical history of blindness who presented to the ED according to him due to a combination of time and age. He was brought in by [facility] due to almost wheeling himself into the street in his wheelchair. He stated that he was unable to remember where he was going. He stated that he was not feeling sick at that time. However, he was feeling sick to his stomach at the time of admission and states that he needs a good night sleep. He states that he has had a bowel movement twice since he has been here. He also states that he has pain in his feet from where they had been sunburned from him sitting out in the sun all day. He wants to go to a sight rehab for his blindness, but his main goal currently is to get some food and sleep. He was sleeping when we entered the room this morning. He was able to answer questions about his site and stated that he could at best sees shadows when he holds his hand about on front of his eye. His ophthalmology appointment had recommended medications mainly drops for glaucoma that he has not been taking and also surgery for cataracts that he has not had. When asked how he was managing out on the street he stated he was not eating well he was not much getting around very well. He is interested in finding a better situation and place to live if at all possible. PMH blindness had a broken ankle PSH none Social hx homeless cigarettes- 1ppd alcohol- when he does, last drink was beer, unsure when he had last drink illicit drugs- none DS: Diagnosis - Discharge Diagnosis (1) Bronchoalveolar carcinoma Status: Acute (2) Hyponatremia Status: Chronic (3) Dementia Status: Acute (4) Alcohol abuse Status: Chronic (5) Impaired mobility and ADLs Status: Acute (6) Sunburn Status: Acute (7) Blindness Status: Chronic (8) Nutrition, metabolism, and development symptoms Status: Acute (9) DVT prophylaxis Status: Acute DS: Medications - Discharge Medications Prescriptions: amlodipine [Norvasc] 10 mg PO DAILY 30 Days #60 tab furosemide 20 mg PO BID@0900,1800 30 Days tab rpimyowj-ikml-ON-calcium-mins [Thera M Plus (ferrous fumarat)] 1 tab PO DAILY # 30 tab sodium chloride 2 gm PO Q8HR 30 Days tab DS: Summary Hospital Course: Patient was originally brought to the ED by Christos lobato due to home illness and possible harm to himself or others. He was admitted to observation for placement purposes. Was found to have electrolyte disturbances including hyponatremia with a sodium level of 127, as well as hypokalemia with a potassium level was 3.3. Patient is also known to have a history of alcohol abuse and has limited mobility due to his chronic blindness. Patient was also found to have severe sunburns on the top of his feet. During the course of his hospitalization his hyponatremia worsened having having reached a critical value of 116. Patient continually asking for water differential diagnosis includes psychogenic polydipsia versus SIADH versus beer but ammonia nephrology was consulted at that time sodium pills were added as well as normal saline attempt to correct this abnormality. At the same time patient was seen by psychiatry who determined that he has no capacity to make decisions. Wound care consulted due to blistering sunburn on the dorsal aspect of the bilateral feet which proceeded to treat with Silvadene ointment and covered with dressing. Patient hyponatremia continue to worsened with a sodium of 117 despite sodium salts, patient received 100 mL's of 3% hypertonic saline ordered by nephrology and improve his sodium to 121. During his hospitalization he was seen very difficult to keep patient sentence level constant. 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 [employer] was consulted however since Mr. Welch lacks capacity they were unable to consent him for any sort of procedure including a bronchoscopy. Although patient was fluid restricted during his hospitalization it was suspected that he was continuing drinking water from the faucet or a different source. She was placed on a regimen of 3 g of sodium sodium pills as well as Lasix. Despite many treatments sodium levels continue to drop and increase only with significant replacement. Per nephrology patient was placed on tolvaptan which significantly improve his sodium levels however tolvaptan is not approved for long-term use and management of SIADH. Due to his poor prognosis with his blindness, homelessness, lung cancer and now SIADH causing hyponatremia, palliative care was consulted. They were able to connect with patient's daughter and sister who decided that hospice will provide him with the best solution and comfort at the end of life. Patient was transferred to a skilled nurse facility for symptom management. Patient was discharged on a regimen including Lasix 20 mg p.o. twice daily, sodium pills 2 g p.o. q. 8 sodium chloride 10 mEq p.o. twice daily - Time Spent with Patient Total time spent providing and/or coordinating discharge services: Greater than 30 minutes - Quality: VTE Deep Vein Thrombosis/Pulmonary Embolism Present on Admission: No Results Procedures completed during hospitalization: bronchoscopy - Impressions ITS Impressions Chest X-Ray 04/17/18 13:32 CONCLUSION: 1. No acute abnormality or significant interval change. Head CT 04/17/18 13:33 CONCLUSION: 1. No acute findings in the brain. 2. Mild left maxillary sinus disease. . Abdomen/Pelvis CT 04/23/18 00:00 CONCLUSION: 1. Right perihilar mass. 2. No adenopathy in the abdomen. 3. Lack of intravenous contrast limits evaluation. 4. Diverticulosis without diverticulitis. Chest CT 04/23/18 00:00 CONCLUSION: 1. Right perihilar mass narrows the right bronchus intermedius measuring 5.3 x 4.4 cm, consistent with bronchoalveolar carcinoma. Bronchoscopy recommended. 2. Minimal paraseptal emphysema. 3. Right distal paratracheal adenopathy. Discharge Plan - Discharge Disposition Patient Disposition: 03 Discharge to SNF - Discharge Condition Condition: Stable - Discharge Order Discharge Orders: Discharge Order (Routine); Ordered 04/28/18 Ordered By: Kailee Barkley - Physicians Team Primary Care Provider: Maryann Arellano Attending Provider: Elizabet Villaseñor Other Providers: Melecio Medina MD ; [facility] ; Ruma Argueta MD ; Ranjit Melgar MD ; & [facility] ; Lexi Swift MD ; Pati Villavicencio MD
== END 2018-04-28 17:58 ==
LOC: NEDA 13:19 → NEPC 13:19 → NEPHCDU 18:24 → N07 04-20 20:28
PROVIDERS: ADMIT Family Medicine; ATTEND Family Medicine